=== PATIENT | female | born 1950 | race African-American/Black ===

== ENCOUNTER → 2017-08-11 | Outpatient (CLI) | payer OTHER ==
[2016-05-05 12:00] VITALS: BP 178/87
--- NOTE | 2017-08-11 09:04 | RAD ---
DATE: 08/11/2017 EXAM: DIGITAL SCREEN BILAT W/CAD HISTORY: Routine screening COMPARISON: 09/03/2014 This study was interpreted with the benefit of Computerized Aided Detection (CAD). The breast parenchyma shows scattered fibroglandular densities. Breast parenchyma level B. FINDINGS: No new or enlarging breast densities are seen. No suspicious microcalcifications are evident. IMPRESSION: Stable mammograms without evidence of malignancy. BI-RADS CATEGORY: 1 NEGATIVE RECOMMENDED FOLLOW-UP: 12M 12 MONTH FOLLOW-UP PQRS compliance statement: Patient information was entered into a reminder system with a target due date for the next mammogram. Mammography is a sensitive method for finding small breast cancers, but it does not detect them all and is not a substitute for careful clinical examination. A negative mammogram does not negate a clinically suspicious finding and should not result in delay in biopsying a clinically suspicious abnormality. "Our facility is accredited by the [employer] Mammography Program."
== END | disposition home or self-care (01) ==
LOC: MAMMO 07:32
PROVIDERS: ATTEND Family Medicine
DX: Z12.31 Encounter for screening mammogram for malignant neoplasm of breast (principal)
CPT/HCPCS: G0202; 77067

== ENCOUNTER 2017-09-15 17:56 | Emergency (ER) | payer OTHER ==
[~2017-09-15] VITALS: Ht 157.5 cm; Wt 74.8 kg
--- NOTE | 2017-09-15 18:22 | EKG ---
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
[2017-09-15 18:29] LABS: BASO % 1 % (0-3); EOS % 2 % (0-3); HEMATOCRIT 40.7 % (36.0-47.0); HEMOGLOBIN 13.8 g/dL (12.0-15.5); LYMPH # 3.7 x10^3/uL (1.0-4.8); LYMPH % 49 % (24-48); MEAN CORPUSCULAR HEMOGLOBIN 32 pg (25-35); MEAN CORPUSCULAR HGB CONC 34 g/dL (31-37); MEAN CORPUSCULAR VOLUME 94 fL (79-100); MONO % 7 % (0-9); NEUT % 41 % (31-73); PLATELET COUNT 296 x10^3/uL (140-400); RED BLOOD COUNT 4.32 x10^6/uL (3.50-5.40); WHITE BLOOD COUNT 7.6 x10^3/uL (4.0-11.0)
--- NOTE | 2017-09-15 18:34 | PHYS DOC ---
Past Medical History Past Medical History: Pneumonia, Other Additional Past Medical Histor: "irregular heart beat" Past Surgical History: Cholecystectomy, Colectomy, Hysterectomy, Tubal ligation Additional Past Surgical Histo: fatty tumor removed Alcohol Use: Rarely Drug Use: None Adult General Chief Complaint Chief Complaint: CHEST PAIN HPI HPI Patient is a 67 year old female who presents with in mild substernal chest pain tightness through to her back for approximately 10 hours; denies shortness of breath cough or fever. Prior stress test 2 years ago was normal no history of heart catheter. Denies history of hypertension but appears to have a fairly elevated blood pressure. Denies leg edema or leg pain. Review of Systems Review of Systems Constitutional: Denies fever or chills [] Eyes: Denies change in visual acuity, redness, or eye pain [] HENT: Denies nasal congestion or sore throat [] Respiratory: Denies cough or shortness of breath [] Cardiovascular: No additional information not addressed in HPI [] GI: Denies abdominal pain, nausea, vomiting, bloody stools or diarrhea [] : Denies dysuria or hematuria [] Musculoskeletal: Denies back pain or joint pain [] Integument: Denies rash or skin lesions [] Neurologic: Denies headache, focal weakness or sensory changes [] Endocrine: Denies polyuria or polydipsia [] Current Medications Current Medications Current Medications Medications (Trade) Dose Ordered Sig/Marnie Start Time Stop Time Status Last Admin Dose Admin Aspirin (Children'S Aspirin) 324 mg 1X ONCE 09/15/17 18:45 09/15/17 18:49 DC 09/15/17 18:59 324 MG Labetalol HCl (Normodyne) 10 mg 1X ONCE 09/15/17 18:45 09/15/17 18:49 DC Nitroglycerin (Nitrostat) 0.4 mg PRN Q5MIN PRN 09/15/17 18:45 09/15/17 20:50 DC 09/15/17 19:00 0.4 MG Allergies Allergies Allergies Coded Allergies Type Severity Reaction Last Updated Verified No Known Drug Allergies 05/05/16 No Physical Exam Physical Exam Constitutional: Well developed, well nourished, no acute distress, non-toxic appearance. [] HENT: Normocephalic, atraumatic, bilateral external ears normal, oropharynx moist, no oral exudates, nose normal. [] Eyes: PERRLA, EOMI, conjunctiva normal, no discharge. [] Neck: Normal range of motion, no tenderness, supple, no stridor. [] Cardiovascular:Heart rate regular rhythm, no murmur [] Lungs & Thorax: Bilateral breath sounds clear to auscultation [] Abdomen: Bowel sounds normal, soft, no tenderness, no masses, no pulsatile masses. [] Skin: Warm, dry, no erythema, no rash. [] Back: No tenderness, no CVA tenderness. [] Extremities: No tenderness, no cyanosis, no clubbing, ROM intact, no edema. [] Neurologic: Alert and oriented X 3, normal motor function, normal sensory function, no focal deficits noted. [] Psychologic: Affect normal, judgement normal, mood normal. [] Current Patient Data Vital Signs Vital Signs Date Time Temp Pulse Resp B/P (MAP) Pulse Ox O2 Delivery O2 Flow Rate FiO2 09/15/17 20:25 59 158/74 (102) 99 Room Air 09/15/17 19:09 18 09/15/17 18:00 98.2 98.2 Lab Values Laboratory Tests Test 09/15/17 18:15 White Blood Count 7.6 x10^3/uL (4.0-11.0) Red Blood Count 4.32 x10^6/uL (3.50-5.40) Hemoglobin 13.8 g/dL (12.0-15.5) Hematocrit 40.7 % (36.0-47.0) Mean Corpuscular Volume 94 fL (79-100) Mean Corpuscular Hemoglobin 32 pg (25-35) Mean Corpuscular Hemoglobin Concent 34 g/dL (31-37) Red Cell Distribution Width 13.0 % (11.5-14.5) Platelet Count 296 x10^3/uL (140-400) Neutrophils (%) (Auto) 41 % (31-73) Lymphocytes (%) (Auto) 49 % (24-48) H Monocytes (%) (Auto) 7 % (0-9) Eosinophils (%) (Auto) 2 % (0-3) Basophils (%) (Auto) 1 % (0-3) Neutrophils # (Auto) 3.1 x10^3uL (1.8-7.7) Lymphocytes # (Auto) 3.7 x10^3/uL (1.0-4.8) Monocytes # (Auto) 0.5 x10^3/uL (0.0-1.1) Eosinophils # (Auto) 0.1 x10^3/uL (0.0-0.7) Basophils # (Auto) 0.0 x10^3/uL (0.0-0.2) Sodium Level 139 mmol/L (136-145) Potassium Level 4.0 mmol/L (3.5-5.1) Chloride Level 102 mmol/L (98-107) Carbon Dioxide Level 29 mmol/L (21-32) Anion Gap 8 (6-14) Blood Urea Nitrogen 19 mg/dL (7-20) Creatinine 0.9 mg/dL (0.6-1.0) Estimated GFR (Cockcroft-Gault) 76.0 BUN/Creatinine Ratio 21 (6-20) H Glucose Level 92 mg/dL (70-99) Calcium Level 9.2 mg/dL (8.5-10.1) Total Bilirubin 0.3 mg/dL (0.2-1.0) Aspartate Amino Transferase (AST) 30 U/L (15-37) Alanine Aminotransferase (ALT) 35 U/L (14-59) Alkaline Phosphatase 95 U/L (46-116) Troponin I Quantitative < 0.017 ng/mL (0.000-0.055) Total Protein 7.7 g/dL (6.4-8.2) Albumin 3.8 g/dL (3.4-5.0) Albumin/Globulin Ratio 1.0 (1.0-1.7) Laboratory Tests 09/15/17 18:15 Laboratory Tests 09/15/17 18:15 EKG EKG EKG normal sinus rhythm rate of 63 no STEMI QTC normal my interpretation[] Radiology/Procedures Radiology/Procedures Chest x-ray[ negative per my interpretation mediastinum was not widened] Course & Med Decision Making Course & Med Decision Making Pertinent Labs and Imaging studies reviewed. (See chart for details) [Patient is blood sugar responded favorably to some sublingual nitroglycerin she was given an aspirin. Labs EKG chest x-ray were unremarkable. Time 8:14 PM reexamination: Patient resting comfortably with a blood pressure of 140-160 systolic she is pain-free. She reports that the pain she was having in her chest is primarily just with movement it is not pleuritic. I've advised her this point we should probably get a CAT scan of her chest and admit her for chest pain rule out and further evaluation such as serial enzymes and EKGs and a stress test or heart catheter if indicated and she is declining this at this time. She understands the risks benefits alternatives including and disability. We will recommend that she take a baby aspirin a day and I will prescribe her some blood pressure medications and have asked her to follow up with her primary care physician tomorrow..] Dragon Disclaimer Dragon Disclaimer This electronic medical record was generated, in whole or in part, using a voice recognition dictation system. Departure Departure Impression: Primary Impression: Chest pain Additional Impression: Hypertensive urgency Disposition: ADMITTED INPATIENT Condition: IMPROVED Referrals: RUSTAM BECKER MD (PCP) Patient Instructions: Chest Pain (Nonspecific), [id number], Hypertension, [id number] Scripts Lisinopril/Hydrochlorothiazide (LISINOPRIL-HCTZ 10-12.5 MG TAB) 1 Each Tablet 1 TAB PO DAILY, #14 TAB 0 Refills Prov: ROCHELLE PINA MD 09/15/17 Problem Qualifiers ROCHELLE PINA MD Sep 15, 2017 18:34
[2017-09-15 18:36] LABS: CALCIUM 9.2 mg/dL (8.5-10.1); CREATININE 0.9 mg/dL (0.6-1.0)
[2017-09-15 18:41] LABS: ALBUMIN 3.8 g/dL (3.4-5.0); TOTAL BILIRUBIN 0.3 mg/dL (0.2-1.0); TOTAL PROTEIN 7.7 g/dL (6.4-8.2)
[2017-09-15] MEDS ORDERED: ASPIRIN CHEWABLE 81 MG TABLET. PO ONE (18:45)
[2017-09-15] MEDS ORDERED: LABETALOL 20 MG/4 ML DISP.SYRIN. IVP ONE (18:45)
[2017-09-15] MEDS ORDERED: NITROGLYCERIN SUBLINGUAL 0.4 MG BOTTLE OF 25. SL PRN (18:45)
[2017-09-15] MEDS ORDERED: LISI1TAB3 PO (20:18)
[2017-09-15 20:25] VITALS: BP 158/74
--- NOTE | 2017-09-16 08:34 | RAD ---
Portable chest, 09/15/2017: History: Chest pain Comparison is made to a study from 05/05/2016. The heart size and pulmonary vascularity are normal. There is a calcified granuloma in the right parahilar region. No pulmonary infiltrates are seen. There is no evidence of pleural fluid. IMPRESSION: No acute cardiopulmonary abnormality is detected.
== END 2017-09-15 20:40 | disposition home or self-care (01) ==
LOC: ER 17:56
DX: R07.2 Precordial pain (principal); I16.0 Hypertensive urgency; Z87.01 Personal history of pneumonia (recurrent); Z90.49 Acquired absence of other specified parts of digestive tract; Z90.710 Acquired absence of both cervix and uterus
CPT/HCPCS: 36415; 71010; 80053; 84484; 85025; 93005; 99285-25

== ENCOUNTER 2017-10-24 18:08 | Emergency (ER) | payer OTHER ==
[~2017-10-24] VITALS: Ht 157.5 cm; Wt 74.8 kg
[~2017-10-24 18:08] MED LIST: LISI1TAB3 PO
[2017-10-24 18:25] VITALS: BP 184/57
--- NOTE | 2017-10-24 18:45 | PHYS DOC ---
Past Medical History Past Medical History: Hypertension, Pneumonia, Other Additional Past Medical Histor: "irregular heart beat" Past Surgical History: Cholecystectomy, Colectomy, Hysterectomy, Tubal ligation , Other Additional Past Surgical Histo: fatty tumor removed Alcohol Use: Occasionally Drug Use: None Adult General Chief Complaint Chief Complaint: COUGH HPI HPI Patient is a 67 year old female with history of hypertension who presents with a productive cough and nasal congestion for 5 days. Patient denies any fever. Review of Systems Review of Systems Constitutional: Denies fever or chills [] Eyes: Denies change in visual acuity, redness, or eye pain [] HENT:Reports nasal congestion denies sore throat [] Respiratory: Reports cough denies shortness of breath [] Cardiovascular: No additional information not addressed in HPI [] GI: Denies abdominal pain, nausea, vomiting, bloody stools or diarrhea [] : Denies dysuria or hematuria [] Musculoskeletal: Denies back pain or joint pain [] Integument: Denies rash or skin lesions [] Neurologic: Denies headache, focal weakness or sensory changes [] All other systems were reviewed and found to be within normal limits, except as documented in this note. Allergies Allergies Allergies Coded Allergies Type Severity Reaction Last Updated Verified No Known Drug Allergies 05/05/16 No Physical Exam Physical Exam Constitutional: Well developed, well nourished, no acute distress, non-toxic appearance. [] HENT: Normocephalic, atraumatic, bilateral external ears normal, oropharynx moist, no oral exudates, patient sounds congested nasally. Eyes: PERRLA, EOMI, conjunctiva normal, no discharge. [] Neck: Normal range of motion, no tenderness, supple, no stridor. [] Cardiovascular:Heart rate regular rhythm, no murmur [] Lungs & Thorax: Bilateral breath sounds clear to auscultation [] Abdomen: Bowel sounds normal, soft, no tenderness, no masses, no pulsatile masses. [] Skin: Warm, dry, no erythema, no rash. [] Back: No tenderness, no CVA tenderness. [] Extremities: No tenderness, no cyanosis, no clubbing, ROM intact, no edema. [] Neurologic: Alert and oriented X 3, normal motor function, normal sensory function, no focal deficits noted. [] Psychologic: Affect normal, judgement normal, mood normal. [] Current Patient Data Vital Signs Vital Signs Date Time Temp Pulse Resp B/P (MAP) Pulse Ox O2 Delivery O2 Flow Rate FiO2 10/24/17 18:25 98.2 70 18 100 Room Air 98.2 EKG EKG [] Radiology/Procedures Radiology/Procedures [] Course & Med Decision Making Course & Med Decision Making Pertinent Labs and Imaging studies reviewed. (See chart for details) Patient is in the ED with symptoms consistent of bronchitis as well as an upper respiratory infection. Will be discharged with azithromycin, albuterol inhaler, penicillin for 5 days and cough medicine. Follow-up with PCP in the next 2-7 days. Provided return precautions and discharged in stable condition. Blood pressure was 184/57, patient states she has not taken her lisinopril today. Instructed her to make sure she takes her blood pressure medicine before bed and follow-up with her PCP. Dragon Disclaimer Dragon Disclaimer This electronic medical record was generated, in whole or in part, using a voice recognition dictation system. Departure Departure Impression: Primary Impression: Acute bronchitis Additional Impressions: Upper respiratory infection Hypertension Disposition: 01 HOME, SELF-CARE Condition: STABLE Referrals: RUSTAM BECKER MD (PCP) followup with your doctor in 2-7 days Patient Instructions: Acute Bronchitis, Hypertension, Upper Respiratory Infection, Adult, [id number] Additional Instructions: You were seen for acute bronchitis with an upper respiratory infection. Take the prescribed medicines as ordered. Ensure you take your blood pressure medicines as prescribed. Follow-up with your doctor in the next 2-7 days. Come back to the ED if symptoms worsen. Scripts Promethazine Hcl/Codeine (PROMETHAZINE-CODEINE SYRUP) 118 Ml Syrup 5 ML PO Q4-6HRS, #60 ML Prov: RAYMOND LOERA APRN 10/24/17 Azithromycin (ZITHROMAX) 250 Mg Tablet 1 PKG PO UD, #1 PKG Prov: RAYMOND LOERA APRN 10/24/17 Prednisone (PREDNISONE) 50 Mg Tablet 1 TAB PO DAILY, #5 TAB Prov: RAYMOND LOERA APRN 10/24/17 Albuterol Sulfate (VENTOLIN HFA INHALER) 18 Gm Hfa.aer.ad 2 PUFF INH Q4HRS for FOR ASTHMA, #1 INHALER 0 Refills Prov: RAYMOND LOERA APRN 10/24/17 Problem Qualifiers Primary Impression: Acute bronchitis Bronchitis organism: unspecified organism Qualified Codes: J20.9 - Acute bronchitis, unspecified Additional Impressions: Upper respiratory infection URI type: unspecified URI Qualified Codes: J06.9 - Acute upper respiratory infection, unspecified Hypertension Hypertension type: unspecified Qualified Codes: I10 - Essential (primary) hypertension RAYMOND LOERA APRN Oct 24, 2017 18:45
[2017-10-24] MEDS ORDERED: PROM118S2 PO (18:49)
[2017-10-24] MEDS ORDERED: AZIT250T PO (18:49)
[2017-10-24] MEDS ORDERED: VENTOLIN HFA18 GM INH (18:49)
[2017-10-24] MEDS ORDERED: PRED50TA PO (18:49)
== END 2017-10-24 19:12 | disposition home or self-care (01) ==
LOC: ER 18:08
DX: J06.9 Acute upper respiratory infection, unspecified (principal); J20.9 Acute bronchitis, unspecified; I10 Essential (primary) hypertension
CPT/HCPCS: 99283

== ENCOUNTER 2017-10-31 17:23 | Inpatient (IN) | payer OTHER ==
[~2017-10-31] VITALS: Ht 157.5 cm; Wt 71.7 kg
[~2017-10-31 17:23] MED LIST changes: +AZIT250T PO; +PRED50TA PO; +PROM118S2 PO; +VENTOLIN HFA18 GM INH
[2017-10-31 18:50] LABS: BASO # 0.1 x10^3/uL (0.0-0.2); BASO % 1 % (0-3); EOS % 2 % (0-3); HEMATOCRIT 41.6 % (36.0-47.0); LYMPH % 43 % (24-48); MEAN CORPUSCULAR HEMOGLOBIN 32 pg (25-35); MEAN CORPUSCULAR HGB CONC 34 g/dL (31-37); MEAN CORPUSCULAR VOLUME 95 fL (79-100); MONO % 6 % (0-9); NEUT % 48 % (31-73); PLATELET COUNT 332 x10^3/uL (140-400); RED BLOOD COUNT 4.38 x10^6/uL (3.50-5.40); RED CELL DISTRIBUTION WIDTH 13.3 % (11.5-14.5); WHITE BLOOD COUNT 9.2 x10^3/uL (4.0-11.0)
[2017-10-31 19:22] LABS: CREATININE 0.9 mg/dL (0.6-1.0); POTASSIUM 3.5 mmol/L (3.5-5.1)
[2017-10-31 19:30] LABS: ALBUMIN 3.5 g/dL (3.4-5.0); ALBUMIN/GLOBULIN RATIO 1.1 (1.0-1.7); TOTAL BILIRUBIN 0.2 mg/dL (0.2-1.0); TOTAL PROTEIN 6.7 g/dL (6.4-8.2)
[2017-10-31] MEDS ORDERED: IOHEXOL 300 MG/ML 100ML VIAL. IV ONE (20:30)
[2017-10-31] MEDS ORDERED: CONTRAST GIVEN MC PRN (20:30)
--- NOTE | 2017-10-31 21:18 | RAD ---
CTA Chest with contrast: Clinical History: chest pain, shortness of breath
Omni 300 75ml, no priors Shortness of breath. Axial helical images of the chest were obtained after the administration of 75 cc of IV Omni 300 and timed appropriately for a pulmonary arterial study. Conventional axial reconstruction was performed in addition to coronal, sagittal and bilateral oblique MIP (maximum intensity projection). This study was ordered to detect possible pulmonary embolism. There are no filling defects to suggest pulmonary embolism. The lungs and pleural margins are clear. There is no mediastinal or hilar lymphadenopathy. The thoracic aorta appears normal. Impression: 1. No evidence of pulmonary embolism. 2. No significant findings. PQRS Compliance Statement: One or more of the following individualized dose reduction techniques were utilized for this examination: 1. Automated exposure control 2. Adjustment of the mA and/or kV according to patient size 3. Use of iterative reconstruction technique Electronically signed by: Henry Griffith III, MD (10/31/2017 9:16 PM) [facility]
[2017-10-31] MEDS ORDERED: fentaNYL PF VIAL 100 MCG/2 ML VIAL IV PRN (22:00)
[2017-10-31] MEDS ORDERED: NITROGLYCERIN SUBLINGUAL 0.4 MG BOTTLE OF 25. SL PRN ×2 (22:00→22:45)
[2017-10-31] MEDS ORDERED: ACETAMINOPHEN 500 MG TABLET PO ONE (22:30)
[2017-10-31] MEDS ORDERED: ASPIRIN 325 MG TABLET PO ONE (22:30)
[2017-10-31] MEDS ORDERED: ONDANSETRON PF 4 MG/2 ML VIAL. IV PRN (22:45)
[2017-10-31] MEDS ORDERED: ACETAMINOPHEN 325 MG TABLET. PO PRN (22:45)
[2017-10-31] MEDS ORDERED: MORPHINE SULFATE 4 MG/ML DISP.SYRIN. IV PRN (22:45)
[2017-10-31 23:28] VITALS: BP 182/76
[2017-11-01] MEDS ORDERED: PNEUMOCOCCAL VAX SCREEN BY RX. MC ONE (00:30)
--- NOTE | 2017-11-01 00:45 | ED.ADGEN ---
Past Medical History Past Medical History: Hypertension, Pneumonia, Other Additional Past Medical Histor: "irregular heart beat" Past Surgical History: Cholecystectomy, Colectomy, Hysterectomy, Tubal ligation , Other Additional Past Surgical Histo: fatty tumor removed Alcohol Use: Occasionally Drug Use: None Adult General Chief Complaint Chief Complaint: CHEST PAIN HPI HPI Patient is a 67 year old [woman, history of hypertension, "irregular heartbeat ", who presents to the emergency department with a complaint of intermittent chest pain over the past week or so. Patient states she was seen in the ED last week, at that time she was evaluated and told that she might have a viral infection. She states that she was instructed to follow-up with her primary care provider, presents today because she is having worsening and recurrent anterior chest pain and heaviness, associated with mild shortness of breath. States that the pain does come and go, sometimes is worse with deep inspiration. Denies similar symptoms previously. Denies any near-syncope or syncopal events, any vertigo, any focal weakness, numbness or tingling, states that she will occasionally have a nonproductive cough, she states states she has some nasal congestion, no sore throat, no swelling extremities, rashes, recent travel or surgery. She states that she has not previously had a DVT or PE , but her sister did have a PE, with unclear inciting etiology several years ago. She states that she has been Compliant with all medications, states he did take Abigail-Hagaman cold and flu at home without improvement of symptoms. Denies any abdominal pain, any diarrhea, any nausea, any weakness numbness or tingling. States her last cardiac evaluation was approximately [address] Samuel of cardiology. Review of Systems Review of Systems Constitutional: Denies fever or chills. [] Eyes: Denies change in visual acuity. [] HENT: Denies nasal congestion or sore throat. [] Respiratory: Denies cough or shortness of breath. [] Cardiovascular: Anterior left sided chest pain, which does radiate to the back at times, with shortness of breath. GI: Denies abdominal pain, nausea, vomiting, bloody stools or diarrhea. [] : Denies dysuria. [] Musculoskeletal: Denies back pain or joint pain. [] Integument: Denies rash. [] Neurologic: Denies headache, focal weakness or sensory changes. [] Endocrine: Denies polyuria or polydipsia. [] Lymphatic: Denies swollen glands. [] Psychiatric: Denies depression or anxiety. [] Current Medications Current Medications Current Medications Medications (Trade) Dose Ordered Sig/Marnie Start Time Stop Time Status Last Admin Dose Admin Info (Do NOT chart on this entry -- for MONITORING) 1 each PRN DAILY PRN 10/31/17 20:30 11/02/17 20:29 Iohexol (Omnipaque 300 Mg/ml) 75 ml 1X ONCE 10/31/17 20:30 10/31/17 20:31 DC 10/31/17 20:26 75 ML Allergies Allergies Allergies Coded Allergies Type Severity Reaction Last Updated Verified No Known Drug Allergies 05/05/16 No Physical Exam Physical Exam Constitutional: Well developed, well nourished, no acute distress, non-toxic appearance. [] HENT: Normocephalic, atraumatic, bilateral external ears normal, oropharynx moist, no oral exudates, nose normal. [] Eyes: PERRLA, EOMI, conjunctiva normal, no discharge. [] Neck: Normal range of motion, no tenderness, supple, no stridor. [] Cardiovascular:Heart rate regular rhythm, no murmur [] Lungs & Thorax: Bilateral breath sounds clear to auscultation [] Abdomen: Bowel sounds normal, soft, no tenderness, no masses, no pulsatile masses. [] Skin: Warm, dry, no erythema, no rash. [] Back: No tenderness, no CVA tenderness. [] Extremities: No tenderness, no cyanosis, no clubbing, ROM intact, no edema. [] Neurologic: Alert and oriented X 3, normal motor function, normal sensory function, no focal deficits noted. [] Psychologic: Affect normal, judgement normal, mood normal. [] Current Patient Data Vital Signs Vital Signs Date Time Temp Pulse Resp B/P (MAP) Pulse Ox O2 Delivery O2 Flow Rate FiO2 10/31/17 21:20 55 155/66 (95) 100 10/31/17 20:00 Room Air 10/31/17 18:30 16 10/31/17 17:35 97.8 97.8 Lab Values Laboratory Tests Test 10/31/17 17:40 10/31/17 19:05 White Blood Count 9.2 x10^3/uL (4.0-11.0) Red Blood Count 4.38 x10^6/uL (3.50-5.40) Hemoglobin 14.0 g/dL (12.0-15.5) Hematocrit 41.6 % (36.0-47.0) Mean Corpuscular Volume 95 fL (79-100) Mean Corpuscular Hemoglobin 32 pg (25-35) Mean Corpuscular Hemoglobin Concent 34 g/dL (31-37) Red Cell Distribution Width 13.3 % (11.5-14.5) Platelet Count 332 x10^3/uL (140-400) Neutrophils (%) (Auto) 48 % (31-73) Lymphocytes (%) (Auto) 43 % (24-48) Monocytes (%) (Auto) 6 % (0-9) Eosinophils (%) (Auto) 2 % (0-3) Basophils (%) (Auto) 1 % (0-3) Neutrophils # (Auto) 4.4 x10^3uL (1.8-7.7) Lymphocytes # (Auto) 4.0 x10^3/uL (1.0-4.8) Monocytes # (Auto) 0.6 x10^3/uL (0.0-1.1) Eosinophils # (Auto) 0.1 x10^3/uL (0.0-0.7) Basophils # (Auto) 0.1 x10^3/uL (0.0-0.2) D-Dimer (Vicky) < 0.27 ug/mlFEU Sodium Level 141 mmol/L (136-145) Potassium Level 3.5 mmol/L (3.5-5.1) Chloride Level 105 mmol/L (98-107) Carbon Dioxide Level 29 mmol/L (21-32) Anion Gap 7 (6-14) Blood Urea Nitrogen 14 mg/dL (7-20) Creatinine 0.9 mg/dL (0.6-1.0) Estimated GFR (Cockcroft-Gault) 76.0 BUN/Creatinine Ratio 16 (6-20) Glucose Level 131 mg/dL (70-99) H Calcium Level 9.0 mg/dL (8.5-10.1) Total Bilirubin 0.2 mg/dL (0.2-1.0) Aspartate Amino Transferase (AST) 22 U/L (15-37) Alanine Aminotransferase (ALT) 42 U/L (14-59) Alkaline Phosphatase 101 U/L (46-116) Troponin I Quantitative < 0.017 ng/mL (0.000-0.055) BT-Trs-D-Type Natriuretic Peptide 14 pg/mL (0-124) Total Protein 6.7 g/dL (6.4-8.2) Albumin 3.5 g/dL (3.4-5.0) Albumin/Globulin Ratio 1.1 (1.0-1.7) Laboratory Tests 10/31/17 17:40 Laboratory Tests 10/31/17 19:05 EKG EKG EC: Sinus rhythm, heart rate 79 beats/minute, left axis deviation, QTC of 418, ND 166, QR 74, mild baseline artifact noted. Abnormal ECG, does not meet STEMI criteria. As interpreted by me. Radiology/Procedures Radiology/Procedures Chest x-ray: One view: Normal cardiopulmonary silhouette, no infiltrates, no effusions, no pneumothorax, no soft tissue or bony abnormalities identified. As interpreted by me. [facility] [address] [place] [address] IMAGING REPORT Signed PATIENT: NASIR MERCADO ACCOUNT: [id number] : 1950 LOCATION: ER AGE: 67 SEX: F EXAM STATUS: REG ER ORD. PHYSICIAN: MADALYN ROJAS DO REASON: CP/SOB PROCEDURE: CT ANGIOGRAPHY CHEST CTA Chest with contrast: Clinical History: chest pain, shortness of breath
Omni 300 75ml, no priors Shortness of breath. Axial helical images of the chest were obtained after the administration of 75 cc of IV Omni 300 and timed appropriately for a pulmonary arterial study. Conventional axial reconstruction was performed in addition to coronal, sagittal and bilateral oblique MIP (maximum intensity projection). This study was ordered to detect possible pulmonary embolism. There are no filling defects to suggest pulmonary embolism. The lungs and pleural margins are clear. There is no mediastinal or hilar lymphadenopathy. The thoracic aorta appears normal. Impression: 1. No evidence of pulmonary embolism. 2. No significant findings. PQRS Compliance Statement: One or more of the following individualized dose reduction techniques were utilized for this examination: 1. Automated exposure control 2. Adjustment of the mA and/or kV according to patient size 3. Use of iterative reconstruction technique Electronically signed by: Tarsha Mcbride III, MD (10/31/2017 9:16 PM) [facility] DICTATED and SIGNED BY: TARSHA MCBRIDE III, MD DATE: 10/31/172111 CC: RUSTAM BECKER MD; MADALYN ROJAS DO ~ Course & Med Decision Making Course & Med Decision Making Pertinent Labs and Imaging studies reviewed. (See chart for details) Patient complaining of intermittent chest pain with shortness of breath, which does radiate to the back, was worse with deep inspiration at times, unable to reproduce with palpation in the ED. Patient does have a family history of what appears to be an unprovoked PE, no fever or viral type symptoms for her report. Chest x-ray obtained along laboratory studies, I did discuss this with patient, his continued out of pain, after discussion at bedside, we did opt to proceed with a CT of the chest to rule out any occult normalities. This was negative for PE, patient's d-dimer was also negative. I did readdress this with patient, she is continued to have some discomfort, has received aspirin and nitroglycerin , and is resting more comfortably at this time. Due to patient's history of hypertension, age, and lack of recent cardiac evaluation, will admit to the hospital for evaluation with Dr. Samuel of cardiology was using previously, with serial troponins for a rule out. I did discuss findings as above with Dr. Frederick of internal medicine, patient was accepted to her service as a full admission to the medical telemetry floor, with bridge orders entered per discussion, and cardiology consultation. Patient remained stable and comfortable in the emergency department, transferred to the floor without issue. Dragon Disclaimer Dragon Disclaimer This electronic medical record was generated, in whole or in part, using a voice recognition dictation system. Departure Impression: Primary Impression: Chest pain Disposition: ADMITTED INPATIENT Admitting Physician: Other Condition: IMPROVED MADALYN ROJAS DO Nov 01, 2017 00:45
[2017-11-01 03:00] VITALS: BP 144/62
[2017-11-01 05:36] LABS: BASO # 0.1 x10^3/uL (0.0-0.2); BASO % 1 % (0-3); EOS % 2 % (0-3); HEMATOCRIT 41.8 % (36.0-47.0); HEMOGLOBIN 13.8 g/dL (12.0-15.5); LYMPH # 4.1 x10^3/uL (1.0-4.8); LYMPH % 52 % (24-48); MEAN CORPUSCULAR HEMOGLOBIN 32 pg (25-35); MEAN CORPUSCULAR HGB CONC 33 g/dL (31-37); MEAN CORPUSCULAR VOLUME 96 fL (79-100); MONO % 7 % (0-9); NEUT % 37 % (31-73); PLATELET COUNT 301 x10^3/uL (140-400); RED BLOOD COUNT 4.37 x10^6/uL (3.50-5.40); RED CELL DISTRIBUTION WIDTH 12.9 % (11.5-14.5); WHITE BLOOD COUNT 7.8 x10^3/uL (4.0-11.0)
[2017-11-01 05:57] LABS: CALCIUM 8.9 mg/dL (8.5-10.1); CREATININE 0.8 mg/dL (0.6-1.0); GFR 87.1; POTASSIUM 3.8 mmol/L (3.5-5.1)
--- NOTE | 2017-11-01 06:48 | EKG ---
[facility] [address] [place] [address] Test Date: 2017-10-31 Test Time: 17:32:14 Pat Name: NASIR MERCADO Department: Room: Gender: F Industrial Electrical Engineer: : 1950 Requested By: MADALYN ROJAS Order Number: [id number] Reading MD: Measurements Intervals [place] Rate: 61 P: 67 [place]: 162 QRS: -22 QRSD: 74 T: 16 QT: 370 QTc: 374 Interpretive Statements SINUS RHYTHM LEFTWARD AXIS OTHERWISE NORMAL ECG RI6.01 No previous ECG available for comparison
[2017-11-01 07:00] VITALS: BP 154/55
--- NOTE | 2017-11-01 08:10 | RAD ---
2 views of the Chest 10/31/2017 8:38 PM Indication: SOB Comparison: Chest radiograph September 15, 2017 Findings: There is no focal consolidation or infiltrate identified. There is no effusion or pneumothorax. The cardiomediastinal silhouette and pulmonary vasculature are within normal limits. No osseous abnormality is identified. Calcified granuloma in the right midlung is stable. Impression: No evidence of acute cardiopulmonary process.
[2017-11-01] MEDS ORDERED: PNEUMOC CONJ VACC 23-VALENT 0.5 ML VIAL. VAX IM ONE (09:00)
--- NOTE | 2017-11-01 10:44 | PDOC1 ---
History and Physical Date of Admission Date of Admission DATE: 11/01/17 TIME: 10:43 Identification/Chief Complaint Chief Complaint CC Chest pressure States that the pain does come and go, sometimes is worse with deep inspiration. Denies similar symptoms previously. Denies any near- syncope or syncopal events, any vertigo, any focal weakness, numbness or tingling, states that she will occasionally have a nonproductive cough, she states states she has some nasal congestion, no sore throat, no swelling extremities, rashes, recent travel or surgery. She states that she has not previously had a DVT or PE, but her sister did have a PE, with unclear inciting etiology several years ago. She states that she has been Compliant with all medications, states he did take Abigail-Mon[place] cold and flu at home without improvement of symptoms. Denies any abdominal pain, any diarrhea, any nausea, any weakness numbness or tingling. States her last cardiac evaluation was approximately [address] Samuel of cardiology.She notes she is under emotional stress due to son's illness She works here as a nurses aid Problems: History of Present Illness History of Present Illness as above, seen in ER with chest pressure, sometimes worse with activity Past Medical History Cardiovascular: No pertinent hx Pulmonary: No pertinent hx GI: No pertinent hx Heme/Onc: No pertinent hx Psych: Anxiety Musculoskeletal: Osteoarthritis Family History Family History BROTHER AND FATHER HAD chf Social History Smoke: No ALCOHOL: none Drugs: None Current Problem List Problem List Problems Medical Problems: (1) Chest pain Status: Acute 2 stress Problems: Current Medications Current Medications Current Medications Iohexol (Omnipaque 300 Mg/ml) 75 ml 1X ONCE IV Last administered on 20:26; Start 10/31/17 at 20:30; Stop 10/31/17 at 20:31; Status DC Info (Do NOT chart on this entry -- for MONITORING) 1 each PRN DAILY PRN MC SEE COMMENTS; Start 10/31/17 at 20:30; Stop 11/02/17 at 20:29 Nitroglycerin (Nitrostat) 0.4 mg PRN Q5MIN PRN SL CHEST PAIN; Start 10/31/17 at 22:00; Stop 10/31/17 at 22:35; Status DC Acetaminophen (Tylenol) 1,000 mg 1X ONCE PO Last administered on 12/11/17at 22 :19; Start 10/31/17 at 22:30; Stop 10/31/17 at 22:31; Status DC Aspirin (Angel Aspirin) 325 mg 1X ONCE PO Last administered on 10/31/17 22: 19; Start 10/31/17 at 22:30; Stop 10/31/17 at 22:31; Status DC Fentanyl Citrate (Fentanyl 2ml Vial) 25 mcg PRN Q15MIN PRN IV PAIN GREATER THAN 3/10; Start 10/31/17 at 22:00; Stop 11/01/17 at 21:59 Ondansetron HCl (Zofran) 4 mg PRN Q8HRS PRN IV NAUSEA/VOMITING; Start at 22:45; Stop 11/01/17 at 22:44 Morphine Sulfate 4 mg PRN Q2HR PRN IV SEVERE PAIN; Start 10/31/17 at 22:45; Stop 11/01/17 at 22:44 Acetaminophen (Tylenol) 650 mg PRN Q4HRS PRN PO FEVER; Start 10/31/17 at 22:45 ; Stop 11/01/17 at 22:44 Nitroglycerin (Nitrostat) 0.4 mg PRN Q5MIN PRN SL CHEST PAIN; Start 10/31/17 at 22:45; Stop 11/01/17 at 22:44 Pneumococcal Polyvalent Vaccine (Do NOT chart on this placeholder) 1 each 1X ONCE MC ; Start 11/01/17 at 00:30; Stop 11/01/17 at 00:31; Status UNV Pneumococcal Polyvalent Vaccine (Pneumovax 23) 0.5 ml ONCE ONCE VAX IM ; Start 11/01/17 at 09:00; Stop 11/01/17 at 09:01; Status DC Active Scripts Active Ventolin Hfa Inhaler (Albuterol Sulfate) 18 Gm Hfa.aer.ad 2 Puff INH Q4HRS Lisinopril-Hctz 10-12.5 Mg Tab (Lisinopril/Hydrochlorothiazide) 1 Each Tablet 1 Tab PO DAILY Allergies Allergies: Coded Allergies: No Known Drug Allergies (Unverified , 05/05/16) Physical Exam Physical Exam Review of Systems Review of Systems Constitutional: Denies fever or chills. [] Eyes: Denies change in visual acuity. [] HENT: Denies nasal congestion or sore throat. [] Respiratory: Denies cough or shortness of breath. [] Cardiovascular: Anterior left sided chest pain, which does radiate to the back at times, with shortness of breath. GI: Denies abdominal pain, nausea, vomiting, bloody stools or diarrhea. [] : Denies dysuria. [] Musculoskeletal: Denies back pain or joint pain. [] Integument: Denies rash. [] Neurologic: Denies headache, focal weakness or sensory changes. [] Endocrine: Denies polyuria or polydipsia. [] Lymphatic: Denies swollen glands. [] Psychiatric: Denies depression or anxiety. [] 14 pt ros otherwise neg except as in HPI Current Medications Current Medications Current Medications Medications (Trade) Dose Ordered Sig/Marnie Start Time Stop Time Status Last Admin Dose Admin Info (Do NOT chart on this entry -- for MONITORING) 1 each PRN DAILY PRN 10/31/17 20:30 11/02/17 20:29 Iohexol (Omnipaque 300 Mg/ml) 75 ml 1X ONCE 10/31/17 20:30 10/31/17 20:31 DC 10/31/17 20:26 75 ML Allergies Allergies Allergies Coded Allergies Type Severity Reaction Last Updated Verified No Known Drug Allergies 05/05/16 No Physical Exam Physical Exam Constitutional: Well developed, well nourished, no acute distress, non-toxic appearance. [] HENT: Normocephalic, atraumatic, bilateral external ears normal, oropharynx moist, no oral exudates, nose normal. [] Eyes: PERRLA, EOMI, conjunctiva normal, no discharge. [] Neck: Normal range of motion, no tenderness, supple, no stridor. [] Cardiovascular:Heart rate regular rhythm, no murmur [] Lungs & Thorax: Bilateral breath sounds clear to auscultation [] Abdomen: Bowel sounds normal, soft, no tenderness, no masses, no pulsatile masses. [] Skin: Warm, dry, no erythema, no rash. [] Back: No tenderness, no CVA tenderness. [] Extremities: No tenderness, no cyanosis, no clubbing, ROM intact, no edema. [] Neurologic: Alert and oriented X 3, normal motor function, normal sensory function, no focal deficits noted. [] Psychologic: Affect normal, judgement normal, mood normal. [] Current Patient Data Vital Signs Vital Signs Date Time Temp Pulse Resp B/P (MAP) Pulse Ox O2 Delivery O2 Flow Rate FiO2 10/31/17 21:20 55 155/66 (95) 100 10/31/17 20:00 Room Air 10/31/17 18:30 16 10/31/17 17:35 97.8 97.8 Lab Values General: Alert, Oriented X3, Cooperative HEENT: PERRLA Lungs: Clear to auscultation Breasts: Not examined Abdomen: Normal bowel sounds, Soft Neuro: Normal speech, Cranial nerves 3-12 NL Vitals Vitals Vital Signs Date Time Temp Pulse Resp B/P (MAP) Pulse Ox O2 Delivery O2 Flow Rate FiO2 11/01/17 09:55 Room Air 11/01/17 07:00 97.7 58 18 154/55 (88) 99 97.7 Labs Labs CTA Chest with contrast: Clinical History: chest pain, shortness of breath
Omni 300 75ml, no priors Shortness of breath. Axial helical images of the chest were obtained after the administration of 75 cc of IV Omni 300 and timed appropriately for a pulmonary arterial study. Conventional axial reconstruction was performed in addition to coronal, sagittal and bilateral oblique MIP (maximum intensity projection). This study was ordered to detect possible pulmonary embolism. There are no filling defects to suggest pulmonary embolism. The lungs and pleural margins are clear. There is no mediastinal or hilar lymphadenopathy. The thoracic aorta appears normal. Impression: 1. No evidence of pulmonary embolism. 2. No significant findings. PQRS Compliance Statement: One or more of the following individualized dose reduction techniques were utilized for this examination: 1. Automated exposure control 2. Adjustment of the mA and/or kV according to patient size 3. Use of iterative reconstruction technique Electronically signed by: Henry Griffith III, MD (10/31/2017 9:16 PM) [facility] Laboratory Tests Test 10/31/17 17:40 10/31/17 19:05 10/31/17 23:00 11/01/17 05:07 White Blood Count 9.2 x10^3/uL (4.0-11.0) 7.8 x10^3/uL (4.0-11.0) Red Blood Count 4.38 x10^6/uL (3.50-5.40) 4.37 x10^6/uL (3.50-5.40) Hemoglobin 14.0 g/dL (12.0-15.5) 13.8 g/dL (12.0-15.5) Hematocrit 41.6 % (36.0-47.0) 41.8 % (36.0-47.0) Mean Corpuscular Volume 95 fL (79-100) 96 fL (79-100) Mean Corpuscular Hemoglobin 32 pg (25-35) 32 pg (25-35) Mean Corpuscular Hemoglobin Concent 34 g/dL (31-37) 33 g/dL (31-37) Red Cell Distribution Width 13.3 % (11.5-14.5) 12.9 % (11.5-14.5) Platelet Count 332 x10^3/uL (140-400) 301 x10^3/uL (140-400) Neutrophils (%) (Auto) 48 % (31-73) 37 % (31-73) Lymphocytes (%) (Auto) 43 % (24-48) 52 % (24-48) Monocytes (%) (Auto) 6 % (0-9) 7 % (0-9) Eosinophils (%) (Auto) 2 % (0-3) 2 % (0-3) Basophils (%) (Auto) 1 % (0-3) 1 % (0-3) Neutrophils # (Auto) 4.4 x10^3uL (1.8-7.7) 2.9 x10^3uL (1.8-7.7) Lymphocytes # (Auto) 4.0 x10^3/uL (1.0-4.8) 4.1 x10^3/uL (1.0-4.8) Monocytes # (Auto) 0.6 x10^3/uL (0.0-1.1) 0.6 x10^3/uL (0.0-1.1) Eosinophils # (Auto) 0.1 x10^3/uL (0.0-0.7) 0.2 x10^3/uL (0.0-0.7) Basophils # (Auto) 0.1 x10^3/uL (0.0-0.2) 0.1 x10^3/uL (0.0-0.2) D-Dimer (Vicky) < 0.27 ug/mlFEU Sodium Level 141 mmol/L (136-145) 142 mmol/L (136-145) Potassium Level 3.5 mmol/L (3.5-5.1) 3.8 mmol/L (3.5-5.1) Chloride Level 105 mmol/L (98-107) 107 mmol/L (98-107) Carbon Dioxide Level 29 mmol/L (21-32) 25 mmol/L (21-32) Anion Gap 7 (6-14) 10 (6-14) Blood Urea Nitrogen 14 mg/dL (7-20) 11 mg/dL (7-20) Creatinine 0.9 mg/dL (0.6-1.0) 0.8 mg/dL (0.6-1.0) Estimated GFR (Cockcroft-Gault) 76.0 87.1 BUN/Creatinine Ratio 16 (6-20) Glucose Level 131 mg/dL (70-99) 103 mg/dL (70-99) Calcium Level 9.0 mg/dL (8.5-10.1) 8.9 mg/dL (8.5-10.1) Total Bilirubin 0.2 mg/dL (0.2-1.0) Aspartate Amino Transf (AST/SGOT) 22 U/L (15-37) Alanine Aminotransferase (ALT/SGPT) 42 U/L (14-59) Alkaline Phosphatase 101 U/L (46-116) Troponin I Quantitative < 0.017 ng/mL (0.000-0.055) < 0.017 ng/mL (0.000-0.055) < 0.017 ng/mL (0.000-0.055) VI-Nkj-F-Type Natriuretic Peptide 14 pg/mL (0-124) Total Protein 6.7 g/dL (6.4-8.2) Albumin 3.5 g/dL (3.4-5.0) Albumin/Globulin Ratio 1.1 (1.0-1.7) Laboratory Tests Test 10/31/17 17:40 10/31/17 19:05 10/31/17 23:00 11/01/17 05:07 White Blood Count 9.2 x10^3/uL (4.0-11.0) 7.8 x10^3/uL (4.0-11.0) Red Blood Count 4.38 x10^6/uL (3.50-5.40) 4.37 x10^6/uL (3.50-5.40) Hemoglobin 14.0 g/dL (12.0-15.5) 13.8 g/dL (12.0-15.5) Hematocrit 41.6 % (36.0-47.0) 41.8 % (36.0-47.0) Mean Corpuscular Volume 95 fL (79-100) 96 fL (79-100) Mean Corpuscular Hemoglobin 32 pg (25-35) 32 pg (25-35) Mean Corpuscular Hemoglobin Concent 34 g/dL (31-37) 33 g/dL (31-37) Red Cell Distribution Width 13.3 % (11.5-14.5) 12.9 % (11.5-14.5) Platelet Count 332 x10^3/uL (140-400) 301 x10^3/uL (140-400) Neutrophils (%) (Auto) 48 % (31-73) 37 % (31-73) Lymphocytes (%) (Auto) 43 % (24-48) 52 % (24-48) Monocytes (%) (Auto) 6 % (0-9) 7 % (0-9) Eosinophils (%) (Auto) 2 % (0-3) 2 % (0-3) Basophils (%) (Auto) 1 % (0-3) 1 % (0-3) Neutrophils # (Auto) 4.4 x10^3uL (1.8-7.7) 2.9 x10^3uL (1.8-7.7) Lymphocytes # (Auto) 4.0 x10^3/uL (1.0-4.8) 4.1 x10^3/uL (1.0-4.8) Monocytes # (Auto) 0.6 x10^3/uL (0.0-1.1) 0.6 x10^3/uL (0.0-1.1) Eosinophils # (Auto) 0.1 x10^3/uL (0.0-0.7) 0.2 x10^3/uL (0.0-0.7) Basophils # (Auto) 0.1 x10^3/uL (0.0-0.2) 0.1 x10^3/uL (0.0-0.2) D-Dimer (Vicky) < 0.27 ug/mlFEU Sodium Level 141 mmol/L (136-145) 142 mmol/L (136-145) Potassium Level 3.5 mmol/L (3.5-5.1) 3.8 mmol/L (3.5-5.1) Chloride Level 105 mmol/L (98-107) 107 mmol/L (98-107) Carbon Dioxide Level 29 mmol/L (21-32) 25 mmol/L (21-32) Anion Gap 7 (6-14) 10 (6-14) Blood Urea Nitrogen 14 mg/dL (7-20) 11 mg/dL (7-20) Creatinine 0.9 mg/dL (0.6-1.0) 0.8 mg/dL (0.6-1.0) Estimated GFR (Cockcroft-Gault) 76.0 87.1 BUN/Creatinine Ratio 16 (6-20) Glucose Level 131 mg/dL (70-99) 103 mg/dL (70-99) Calcium Level 9.0 mg/dL (8.5-10.1) 8.9 mg/dL (8.5-10.1) Total Bilirubin 0.2 mg/dL (0.2-1.0) Aspartate Amino Transf (AST/SGOT) 22 U/L (15-37) Alanine Aminotransferase (ALT/SGPT) 42 U/L (14-59) Alkaline Phosphatase 101 U/L (46-116) Troponin I Quantitative < 0.017 ng/mL (0.000-0.055) < 0.017 ng/mL (0.000-0.055) < 0.017 ng/mL (0.000-0.055) JL-Pki-E-Type Natriuretic Peptide 14 pg/mL (0-124) Total Protein 6.7 g/dL (6.4-8.2) Albumin 3.5 g/dL (3.4-5.0) Albumin/Globulin Ratio 1.1 (1.0-1.7) VTE Prophylaxis Ordered VTE Prophylaxis Devices: No VTE Pharmacological Prophylaxi: Yes Assessment/Plan Assessment/Plan 1. Chest discomfort, concerning for CAD, given age, postmenopausal state 2. stress and anxiety, situational 3. possible GERD 4. hypertension PLAN 1. Cardiology consult 2. serial troponin i 3. tele monitor ANNE AMIN MD Nov 01, 2017 10:43
[2017-11-01 11:00] VITALS: BP 168/60
[2017-11-01] MEDS: ENOXAPARIN 40 MG/0.4 ML SYRINGE. SQ SCH (12:49)
[2017-11-01 15:00] VITALS: BP 143/62
--- NOTE | 2017-11-01 18:59 | PDOC2 ---
CONSULT Date of Consult Date of Consult DATE: 11/01/17 TIME: 18:52 Reason for Consult Reason for Consult: Chest pain Referring Physician Referring Physician: Dr. 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 The patient has had some chest pain symptoms in the past and about 2 years ago she had an episode of severe chest pain and a stress test was done that was found to be normal. She hasn't had anymore episodes of chest discomfort until now when she comes in after an episode of chest tightness that is severe and radiates into the neck and shoulders. The discomfort was associated with some shortness of breath. She also had some nausea. No reported diaphoresis. At the time that I saw her she was not having any significant chest discomfort. The enzymes have been negative so far. No acute changes in the EKG Past Medical History Cardiovascular: No pertinent hx Pulmonary: No pertinent hx GI: No pertinent hx Heme/Onc: No pertinent hx Psych: Anxiety Musculoskeletal: Osteoarthritis Social History No ALCOHOL: none Drugs: None Current Problem List Problem List Problems Medical Problems: (1) Chest pain Status: Acute Current Medications Current Medications Current Medications Iohexol (Omnipaque 300 Mg/ml) 75 ml 1X ONCE IV Last administered on 20:26; Start 10/31/17 at 20:30; Stop 10/31/17 at 20:31; Status DC Info (Do NOT chart on this entry -- for MONITORING) 1 each PRN DAILY PRN MC SEE COMMENTS; Start 10/31/17 at 20:30; Stop 11/02/17 at 20:29 Nitroglycerin (Nitrostat) 0.4 mg PRN Q5MIN PRN SL CHEST PAIN; Start 10/31/17 at 22:00; Stop 10/31/17 at 22:35; Status DC Acetaminophen (Tylenol) 1,000 mg 1X ONCE PO Last administered on 10/31/17 22 :19; Start 10/31/17 at 22:30; Stop 10/31/17 at 22:31; Status DC Aspirin (Angel Aspirin) 325 mg 1X ONCE PO Last administered on 10/31/17 22: 19; Start 10/31/17 at 22:30; Stop 10/31/17 at 22:31; Status DC Fentanyl Citrate (Fentanyl 2ml Vial) 25 mcg PRN Q15MIN PRN IV PAIN GREATER THAN 3/10; Start 10/31/17 at 22:00; Stop 11/01/17 at 21:59 Ondansetron HCl (Zofran) 4 mg PRN Q8HRS PRN IV NAUSEA/VOMITING; Start at 22:45; Stop 11/01/17 at 22:44 Morphine Sulfate 4 mg PRN Q2HR PRN IV SEVERE PAIN; Start 10/31/17 at 22:45; Stop 11/01/17 at 22:44 Acetaminophen (Tylenol) 650 mg PRN Q4HRS PRN PO FEVER; Start 10/31/17 at 22:45 ; Stop 11/01/17 at 22:44 Nitroglycerin (Nitrostat) 0.4 mg PRN Q5MIN PRN SL CHEST PAIN; Start 10/31/17 at 22:45; Stop 11/01/17 at 22:44 Pneumococcal Polyvalent Vaccine (Do NOT chart on this placeholder) 1 each 1X ONCE MC ; Start 11/01/17 at 00:30; Stop 11/01/17 at 00:31; Status UNV Pneumococcal Polyvalent Vaccine (Pneumovax 23) 0.5 ml ONCE ONCE VAX IM Last administered on 11/01/17 12:57; Start 11/01/17 at 09:00; Stop 11/01/17 at 09 :01; Status DC Enoxaparin Sodium (Lovenox 40mg Syringe) 40 mg Q24H SQ Last administered on 12:49; Start 11/01/17 at 11:00 Active Scripts Active Ventolin Hfa Inhaler (Albuterol Sulfate) 18 Gm Hfa.aer.ad 2 Puff INH Q4HRS Lisinopril-Hctz 10-12.5 Mg Tab (Lisinopril/Hydrochlorothiazide) 1 Each Tablet 1 Tab PO DAILY Allergies Allergies: Coded Allergies: No Known Drug Allergies (Unverified , 05/05/16) Physical Exam General: Alert, Oriented X3, Cooperative HEENT: Atraumatic, PERRLA Lungs: Clear to auscultation Heart: Regular rate, Normal S1, Normal S2 Abdomen: Normal bowel sounds, Soft Extremities: No edema Vitals VITALS Vital Signs Date Time Temp Pulse Resp B/P (MAP) Pulse Ox O2 Delivery O2 Flow Rate FiO2 11/01/17 15:00 98.1 56 19 143/62 (89) 100 Room Air 98.1 Labs Labs Laboratory Tests Test 10/31/17 17:40 10/31/17 19:05 10/31/17 23:00 11/01/17 05:07 White Blood Count 9.2 x10^3/uL (4.0-11.0) 7.8 x10^3/uL (4.0-11.0) Red Blood Count 4.38 x10^6/uL (3.50-5.40) 4.37 x10^6/uL (3.50-5.40) Hemoglobin 14.0 g/dL (12.0-15.5) 13.8 g/dL (12.0-15.5) Hematocrit 41.6 % (36.0-47.0) 41.8 % (36.0-47.0) Mean Corpuscular Volume 95 fL (79-100) 96 fL (79-100) Mean Corpuscular Hemoglobin 32 pg (25-35) 32 pg (25-35) Mean Corpuscular Hemoglobin Concent 34 g/dL (31-37) 33 g/dL (31-37) Red Cell Distribution Width 13.3 % (11.5-14.5) 12.9 % (11.5-14.5) Platelet Count 332 x10^3/uL (140-400) 301 x10^3/uL (140-400) Neutrophils (%) (Auto) 48 % (31-73) 37 % (31-73) Lymphocytes (%) (Auto) 43 % (24-48) 52 % (24-48) Monocytes (%) (Auto) 6 % (0-9) 7 % (0-9) Eosinophils (%) (Auto) 2 % (0-3) 2 % (0-3) Basophils (%) (Auto) 1 % (0-3) 1 % (0-3) Neutrophils # (Auto) 4.4 x10^3uL (1.8-7.7) 2.9 x10^3uL (1.8-7.7) Lymphocytes # (Auto) 4.0 x10^3/uL (1.0-4.8) 4.1 x10^3/uL (1.0-4.8) Monocytes # (Auto) 0.6 x10^3/uL (0.0-1.1) 0.6 x10^3/uL (0.0-1.1) Eosinophils # (Auto) 0.1 x10^3/uL (0.0-0.7) 0.2 x10^3/uL (0.0-0.7) Basophils # (Auto) 0.1 x10^3/uL (0.0-0.2) 0.1 x10^3/uL (0.0-0.2) D-Dimer (Vicky) < 0.27 ug/mlFEU Sodium Level 141 mmol/L (136-145) 142 mmol/L (136-145) Potassium Level 3.5 mmol/L (3.5-5.1) 3.8 mmol/L (3.5-5.1) Chloride Level 105 mmol/L (98-107) 107 mmol/L (98-107) Carbon Dioxide Level 29 mmol/L (21-32) 25 mmol/L (21-32) Anion Gap 7 (6-14) 10 (6-14) Blood Urea Nitrogen 14 mg/dL (7-20) 11 mg/dL (7-20) Creatinine 0.9 mg/dL (0.6-1.0) 0.8 mg/dL (0.6-1.0) Estimated GFR (Cockcroft-Gault) 76.0 87.1 BUN/Creatinine Ratio 16 (6-20) Glucose Level 131 mg/dL (70-99) 103 mg/dL (70-99) Calcium Level 9.0 mg/dL (8.5-10.1) 8.9 mg/dL (8.5-10.1) Total Bilirubin 0.2 mg/dL (0.2-1.0) Aspartate Amino Transf (AST/SGOT) 22 U/L (15-37) Alanine Aminotransferase (ALT/SGPT) 42 U/L (14-59) Alkaline Phosphatase 101 U/L (46-116) Troponin I Quantitative < 0.017 ng/mL (0.000-0.055) < 0.017 ng/mL (0.000-0.055) < 0.017 ng/mL (0.000-0.055) NQ-Fgx-M-Type Natriuretic Peptide 14 pg/mL (0-124) Total Protein 6.7 g/dL (6.4-8.2) Albumin 3.5 g/dL (3.4-5.0) Albumin/Globulin Ratio 1.1 (1.0-1.7) Laboratory Tests Test 10/31/17 19:05 10/31/17 23:00 11/01/17 05:07 Sodium Level 141 mmol/L (136-145) 142 mmol/L (136-145) Potassium Level 3.5 mmol/L (3.5-5.1) 3.8 mmol/L (3.5-5.1) Chloride Level 105 mmol/L (98-107) 107 mmol/L (98-107) Carbon Dioxide Level 29 mmol/L (21-32) 25 mmol/L (21-32) Anion Gap 7 (6-14) 10 (6-14) Blood Urea Nitrogen 14 mg/dL (7-20) 11 mg/dL (7-20) Creatinine 0.9 mg/dL (0.6-1.0) 0.8 mg/dL (0.6-1.0) Estimated GFR (Cockcroft-Gault) 76.0 87.1 BUN/Creatinine Ratio 16 (6-20) Glucose Level 131 mg/dL (70-99) 103 mg/dL (70-99) Calcium Level 9.0 mg/dL (8.5-10.1) 8.9 mg/dL (8.5-10.1) Total Bilirubin 0.2 mg/dL (0.2-1.0) Aspartate Amino Transf (AST/SGOT) 22 U/L (15-37) Alanine Aminotransferase (ALT/SGPT) 42 U/L (14-59) Alkaline Phosphatase 101 U/L (46-116) Troponin I Quantitative < 0.017 ng/mL (0.000-0.055) < 0.017 ng/mL (0.000-0.055) < 0.017 ng/mL (0.000-0.055) IE-Nrx-B-Type Natriuretic Peptide 14 pg/mL (0-124) Total Protein 6.7 g/dL (6.4-8.2) Albumin 3.5 g/dL (3.4-5.0) Albumin/Globulin Ratio 1.1 (1.0-1.7) White Blood Count 7.8 x10^3/uL (4.0-11.0) Red Blood Count 4.37 x10^6/uL (3.50-5.40) Hemoglobin 13.8 g/dL (12.0-15.5) Hematocrit 41.8 % (36.0-47.0) Mean Corpuscular Volume 96 fL (79-100) Mean Corpuscular Hemoglobin 32 pg (25-35) Mean Corpuscular Hemoglobin Concent 33 g/dL (31-37) Red Cell Distribution Width 12.9 % (11.5-14.5) Platelet Count 301 x10^3/uL (140-400) Neutrophils (%) (Auto) 37 % (31-73) Lymphocytes (%) (Auto) 52 % (24-48) Monocytes (%) (Auto) 7 % (0-9) Eosinophils (%) (Auto) 2 % (0-3) Basophils (%) (Auto) 1 % (0-3) Neutrophils # (Auto) 2.9 x10^3uL (1.8-7.7) Lymphocytes # (Auto) 4.1 x10^3/uL (1.0-4.8) Monocytes # (Auto) 0.6 x10^3/uL (0.0-1.1) Eosinophils # (Auto) 0.2 x10^3/uL (0.0-0.7) Basophils # (Auto) 0.1 x10^3/uL (0.0-0.2) Assessment/Plan Assessment/Plan This patient has a strong family history for heart disease and her symptoms are suspicious. We have done a stress test in the past that was not diagnostic. We've discussed this situation with the patient as well as the options and risks and it was decided to do a heart catheterization tomorrow morning. We will set it up. Thank you very much for asking me to participate in the care of this patient. JOSE VILLALPANDO MD Nov 01, 2017 18:59
[2017-11-01 19:00] VITALS: BP 144/74
[2017-11-01] MEDS ORDERED: diphenhydrAMINE HCL 25 MG CAPSULE PO PRN (19:45)
[2017-11-01] MEDS: IV 1/2 NORMAL SALINE 1,000 ML IV SCH (21:09)
[2017-11-01 23:00] VITALS: BP 175/66
[2017-11-02] VITALS (7 sets, daily range): BP systolic 113–160; BP diastolic 47–68
[2017-11-02] MEDS: ENOXAPARIN 40 MG/0.4 ML SYRINGE. SQ SCH (11:00)
--- NOTE | 2017-11-02 11:11 | PDOC ---
MODERATE SEDATION ASSESSMENT RISKS/ALTERNATIVES Risks/Alternatives Risks and alternatives of this type of sedation and procedure discussed with: RISK/ALTERNATIVES: Patient H & P ON CHART H & P H & P on chart and reviewed for co-morbid conditions and appropriate labs. H&P ON CHART: Yes STATUS PREG STATUS ASSESSED: Yes MEDS/ALLERGIES REVIEWED Meds/Allergies Reviewed Medications and Allergies including time and route of recently administered narcotics and sedatives. MEDS/ALLERGIES REVIEWED: Yes ASA RATING ASA RATING: II AIRWAY ASSESSMENT Airway Assessment Airway patency, oral function limitations, presence of caps, crowns, dentures, partials, and ability to extend neck assessed. AIRWAY ASSESSMENT: Yes MALLAMPATI SCORE MALLAMPATI SCORE: II PRE-SEDATION ASSESSMENT PRE-SEDATION ASSESSMENT: Yes JOSE VILLALPANDO MD Nov 02, 2017 11:11
[2017-11-02] MEDS ORDERED: LIDOCAINE 2% 20 ML VIAL. ONE (11:59)
[2017-11-02] MEDS ORDERED: IOHEXOL 300 MG/ML 100ML VIAL. ONE (11:59)
[2017-11-02] MEDS ORDERED: fentaNYL PF VIAL 100 MCG/2 ML VIAL ONE (13:13)
[2017-11-02] MEDS ORDERED: MIDAZOLAM HCL/PF 5 MG/5 ML VIAL. ONE (13:13)
[2017-11-02] MEDS ORDERED: CONTRAST GIVEN MC PRN (13:45)
[2017-11-02] MEDS ORDERED: LIDOCAINE 2% 20 ML VIAL. IJ ONE (13:45)
[2017-11-02] MEDS ORDERED: MIDAZOLAM HCL/PF 5 MG/5 ML VIAL. IV ONE (13:45)
[2017-11-02] MEDS ORDERED: IOHEXOL 300 MG/ML 100ML VIAL. IART ONE (13:45)
[2017-11-02] MEDS ORDERED: fentaNYL PF VIAL 100 MCG/2 ML VIAL IV ONE (13:45)
[2017-11-02] MEDS ORDERED: diphenhydrAMINE 50 MG/ML VIAL IVP PRN (16:15)
[2017-11-02] MEDS ORDERED: diphenhydrAMINE HCL 25 MG CAPSULE PO PRN (16:30)
[2017-11-02] MEDS: HYDROcodone/APAP 5/325MG 1 TAB TABLET PO PRN ×2 (16:35→20:48)
--- NOTE | 2017-11-02 17:30 | PDOC ---
PROGRESS NOTES Chief Complaint Chief Complaint impression 1. angina plan heart cath today Physical Exam Physical Exam Review of Systems Review of Systems Constitutional: Denies fever or chills. [] Eyes: Denies change in visual acuity. [] HENT: Denies nasal congestion or sore throat. [] Respiratory: Denies cough or shortness of breath. [] Cardiovascular: Anterior left sided chest pain, which does radiate to the back at times, with shortness of breath. GI: Denies abdominal pain, nausea, vomiting, bloody stools or diarrhea. [] : Denies dysuria. [] Musculoskeletal: Denies back pain or joint pain. [] Integument: Denies rash. [] Neurologic: Denies headache, focal weakness or sensory changes. [] Endocrine: Denies polyuria or polydipsia. [] Lymphatic: Denies swollen glands. [] Psychiatric: Denies depression or anxiety. [] 14 pt ros otherwise neg except as in HPI Vitals Vitals Vital Signs Date Time Temp Pulse Resp B/P (MAP) Pulse Ox O2 Delivery O2 Flow Rate FiO2 11/02/17 16:35 20 98 Room Air 2.0 11/02/17 15:00 96.1 58 141/59 (86) 96.1 Physical Exam General: Alert, Oriented X3, Cooperative Heart: Regular rate, Normal S1, Normal S2 Abdomen: Normal bowel sounds, Soft Extremities: No edema Labs LABS Physical Exam Constitutional: Well developed, well nourished, no acute distress, non-toxic appearance. [] HENT: Normocephalic, atraumatic, bilateral external ears normal, oropharynx moist, no oral exudates, nose normal. [] Eyes: PERRLA, EOMI, conjunctiva normal, no discharge. [] Neck: Normal range of motion, no tenderness, supple, no stridor. [] Cardiovascular:Heart rate regular rhythm, no murmur [] Lungs & Thorax: Bilateral breath sounds clear to auscultation [] Abdomen: Bowel sounds normal, soft, no tenderness, no masses, no pulsatile masses. [] Skin: Warm, dry, no erythema, no rash. [] Back: No tenderness, no CVA tenderness. [] Extremities: No tenderness, no cyanosis, no clubbing, ROM intact, no edema. [] Neurologic: Alert and oriented X 3, normal motor function, normal sensory function, no focal deficits noted. [] Psychologic: Affect normal, judgement normal, mood normal. [] Assessment and Plan Assessmemt and Plan Problems Medical Problems: (1) Chest pain Status: Acute Problems: Comment Review of Relevant I have reviewed the following items matty (where applicable) has been applied. Labs Laboratory Tests Test 10/31/17 17:40 10/31/17 19:05 10/31/17 23:00 11/01/17 05:07 White Blood Count 9.2 x10^3/uL (4.0-11.0) 7.8 x10^3/uL (4.0-11.0) Red Blood Count 4.38 x10^6/uL (3.50-5.40) 4.37 x10^6/uL (3.50-5.40) Hemoglobin 14.0 g/dL (12.0-15.5) 13.8 g/dL (12.0-15.5) Hematocrit 41.6 % (36.0-47.0) 41.8 % (36.0-47.0) Mean Corpuscular Volume 95 fL (79-100) 96 fL (79-100) Mean Corpuscular Hemoglobin 32 pg (25-35) 32 pg (25-35) Mean Corpuscular Hemoglobin Concent 34 g/dL (31-37) 33 g/dL (31-37) Red Cell Distribution Width 13.3 % (11.5-14.5) 12.9 % (11.5-14.5) Platelet Count 332 x10^3/uL (140-400) 301 x10^3/uL (140-400) Neutrophils (%) (Auto) 48 % (31-73) 37 % (31-73) Lymphocytes (%) (Auto) 43 % (24-48) 52 % (24-48) Monocytes (%) (Auto) 6 % (0-9) 7 % (0-9) Eosinophils (%) (Auto) 2 % (0-3) 2 % (0-3) Basophils (%) (Auto) 1 % (0-3) 1 % (0-3) Neutrophils # (Auto) 4.4 x10^3uL (1.8-7.7) 2.9 x10^3uL (1.8-7.7) Lymphocytes # (Auto) 4.0 x10^3/uL (1.0-4.8) 4.1 x10^3/uL (1.0-4.8) Monocytes # (Auto) 0.6 x10^3/uL (0.0-1.1) 0.6 x10^3/uL (0.0-1.1) Eosinophils # (Auto) 0.1 x10^3/uL (0.0-0.7) 0.2 x10^3/uL (0.0-0.7) Basophils # (Auto) 0.1 x10^3/uL (0.0-0.2) 0.1 x10^3/uL (0.0-0.2) D-Dimer (Vicky) < 0.27 ug/mlFEU Sodium Level 141 mmol/L (136-145) 142 mmol/L (136-145) Potassium Level 3.5 mmol/L (3.5-5.1) 3.8 mmol/L (3.5-5.1) Chloride Level 105 mmol/L (98-107) 107 mmol/L (98-107) Carbon Dioxide Level 29 mmol/L (21-32) 25 mmol/L (21-32) Anion Gap 7 (6-14) 10 (6-14) Blood Urea Nitrogen 14 mg/dL (7-20) 11 mg/dL (7-20) Creatinine 0.9 mg/dL (0.6-1.0) 0.8 mg/dL (0.6-1.0) Estimated GFR (Cockcroft-Gault) 76.0 87.1 BUN/Creatinine Ratio 16 (6-20) Glucose Level 131 mg/dL (70-99) 103 mg/dL (70-99) Calcium Level 9.0 mg/dL (8.5-10.1) 8.9 mg/dL (8.5-10.1) Total Bilirubin 0.2 mg/dL (0.2-1.0) Aspartate Amino Transf (AST/SGOT) 22 U/L (15-37) Alanine Aminotransferase (ALT/SGPT) 42 U/L (14-59) Alkaline Phosphatase 101 U/L (46-116) Troponin I Quantitative < 0.017 ng/mL (0.000-0.055) < 0.017 ng/mL (0.000-0.055) < 0.017 ng/mL (0.000-0.055) UF-Pzb-S-Type Natriuretic Peptide 14 pg/mL (0-124) Total Protein 6.7 g/dL (6.4-8.2) Albumin 3.5 g/dL (3.4-5.0) Albumin/Globulin Ratio 1.1 (1.0-1.7) Medications Current Medications Iohexol (Omnipaque 300 Mg/ml) 75 ml 1X ONCE IV Last administered on 20:26; Start 10/31/17 at 20:30; Stop 10/31/17 at 20:31; Status DC Info (Do NOT chart on this entry -- for MONITORING) 1 each PRN DAILY PRN MC SEE COMMENTS; Start 10/31/17 at 20:30; Stop 11/02/17 at 20:29 Nitroglycerin (Nitrostat) 0.4 mg PRN Q5MIN PRN SL CHEST PAIN; Start 10/31/17 at 22:00; Stop 10/31/17 at 22:35; Status DC Acetaminophen (Tylenol) 1,000 mg 1X ONCE PO Last administered on 10/31/17 22 :19; Start 10/31/17 at 22:30; Stop 10/31/17 at 22:31; Status DC Aspirin (Angel Aspirin) 325 mg 1X ONCE PO Last administered on 10/31/17 22: 19; Start 10/31/17 at 22:30; Stop 10/31/17 at 22:31; Status DC Fentanyl Citrate (Fentanyl 2ml Vial) 25 mcg PRN Q15MIN PRN IV PAIN GREATER THAN 3/10; Start 10/31/17 at 22:00; Stop 11/01/17 at 21:59; Status DC Ondansetron HCl (Zofran) 4 mg PRN Q8HRS PRN IV NAUSEA/VOMITING; Start at 22:45; Stop 11/01/17 at 22:44; Status DC Morphine Sulfate 4 mg PRN Q2HR PRN IV SEVERE PAIN Last administered on 19:55; Start 10/31/17 at 22:45; Stop 11/01/17 at 22:44; Status DC Acetaminophen (Tylenol) 650 mg PRN Q4HRS PRN PO FEVER; Start 10/31/17 at 22:45 ; Stop 11/01/17 at 22:44; Status DC Nitroglycerin (Nitrostat) 0.4 mg PRN Q5MIN PRN SL CHEST PAIN; Start 10/31/17 at 22:45; Stop 11/01/17 at 22:44; Status DC Pneumococcal Polyvalent Vaccine (Do NOT chart on this placeholder) 1 each 1X ONCE MC ; Start 11/01/17 at 00:30; Stop 11/01/17 at 00:31; Status UNV Pneumococcal Polyvalent Vaccine (Pneumovax 23) 0.5 ml ONCE ONCE VAX IM Last administered on 11/01/17 12:57; Start 11/01/17 at 09:00; Stop 11/01/17 at 09 :01; Status DC Enoxaparin Sodium (Lovenox 40mg Syringe) 40 mg Q24H SQ Last administered on 12:49; Start 11/01/17 at 11:00 Sodium Chloride 1,000 ml @ 60 mls/hr [id number] IV Last administered on 21:09; Start 11/01/17 at 19:30 Diphenhydramine HCl (Benadryl) 50 mg PRN QHS PRN PO INSOMNIA Last administered on 11/01/17 21:09; Start 11/01/17 at 19:45 Iohexol (Omnipaque 300 Mg/ml) 100 ml STK-MED ONCE .ROUTE ; Start 11/02/17 at 11 :59; Stop 11/02/17 at 12:00; Status DC Lidocaine HCl 20 ml STK-MED ONCE .ROUTE ; Start 11/02/17 at 11:59; Stop at 12:00; Status DC Heparin Sodium/ Sodium Chloride 500 ml @ As Directed STK-MED ONCE .ROUTE ; Start 11/02/17 at 11:59; Stop 11/02/17 at 12:00; Status DC Fentanyl Citrate (Fentanyl 2ml Vial) 100 mcg STK-MED ONCE .ROUTE ; Start at 13:13; Stop 11/02/17 at 13:14; Status DC Midazolam HCl (Versed) 5 mg STK-MED ONCE .ROUTE ; Start 11/02/17 at 13:13; Stop 11/02/17 at 13:14; Status DC Heparin Sodium/ Sodium Chloride 1,000 unit 1X ONCE IART Last administered on 11/02/17 13:49; Start 11/02/17 at 13:45; Stop 11/02/17 at 13:46; Status DC Heparin Sodium/ Sodium Chloride 1,000 unit 1X ONCE IART Last administered on 11/02/17 13:40; Start 11/02/17 at 13:45; Stop 11/02/17 at 13:46; Status DC Midazolam HCl (Versed) 2 mg 1X ONCE IV Last administered on 11/02/17 13:50; Start 11/02/17 at 13:45; Stop 11/02/17 at 13:46; Status DC Fentanyl Citrate (Fentanyl 2ml Vial) 50 mcg 1X ONCE IV Last administered on 13:51; Start 11/02/17 at 13:45; Stop 11/02/17 at 13:46; Status DC Iohexol (Omnipaque 300 Mg/ml) 91 ml 1X ONCE IART Last administered on 13:49; Start 11/02/17 at 13:45; Stop 11/02/17 at 13:46; Status DC Lidocaine HCl 20 ml 1X ONCE IJ Last administered on 11/02/17 13:50; Start 11/02/17 at 13:45; Stop 11/02/17 at 13:46; Status DC Info (Do NOT chart on this entry -- for MONITORING) 1 each PRN DAILY PRN MC SEE COMMENTS; Start 11/02/17 at 13:45; Stop 11/04/17 at 13:44 Acetaminophen/ Hydrocodone Bitart (Lortab 5/325) 1 tab PRN Q4HRS PRN PO PAIN Last administered on 11/02/17 16:35; Start 11/02/17 at 15:45 Diphenhydramine HCl (Benadryl) 25 mg PRN Q6HRS PRN IVP ITCHING; Start at 16:15; Stop 11/02/17 at 16:31; Status DC Diphenhydramine HCl (Benadryl) 25 mg PRN Q6HRS PRN PO ITCHING; Start 12/13/17 at 16:30 Active Scripts Active Ventolin Hfa Inhaler (Albuterol Sulfate) 18 Gm Hfa.aer.ad 2 Puff INH Q4HRS Lisinopril-Hctz 10-12.5 Mg Tab (Lisinopril/Hydrochlorothiazide) 1 Each Tablet 1 Tab PO DAILY Vitals/I & O Vital Sign - Last 24 Hours 11/01/17 11/01/17 11/01/17 11/01/17 19:00 19:55 20:00 20:25 Temp 98.1 98.1 Pulse 70 Resp 18 B/P (MAP) 144/74 (97) Pulse Ox 99 100 100 O2 Delivery Room Air Room Air Room Air Room Air 11/01/17 11/02/17 11/02/17 11/02/17 23:00 03:00 07:00 08:00 Temp 97.7 97.7 97.9 97.7 97.7 97.9 Pulse 63 62 60 Resp 18 18 20 B/P (MAP) 175/66 (102) 130/57 (81) 139/54 (82) Pulse Ox 99 99 95 O2 Delivery Room Air Room Air Room Air Room Air 11/02/17 11/02/17 11/02/17 11/02/17 11:00 13:51 13:54 15:00 Temp 97.9 96.1 97.9 96.1 Pulse 64 63 58 Resp 20 17 17 20 B/P (MAP) 113/47 (69) 141/59 (86) Pulse Ox 96 100 100 98 O2 Delivery Room Air Nasal Cannula Room Air O2 Flow Rate 2.0 11/02/17 16:35 Resp 20 Pulse Ox 98 O2 Delivery Room Air O2 Flow Rate 2.0 Intake and Output 11/01/17 11/01/17 11/02/17 15:00 23:00 07:00 Intake Total 0 ml 0 ml 480 ml Output Total 1 ml Balance 0 ml 0 ml 479 ml ANNE AMIN MD Nov 02, 2017 17:30
[2017-11-02] MEDS ORDERED: ZOLPIDEM 5 MG TABLET. PO PRN (17:45)
[2017-11-02] MEDS: IV 1/2 NORMAL SALINE 1,000 ML IV SCH (18:11)
--- NOTE | 2017-11-02 18:11 | CARD ---
APPROVED REPORT Procedure(s) performed: moderate Sedation: 37 Minutes HISTORY The patient is a 67 year-old female with a history of : hypertension. INDICATION The indication(s) include : unstable angina , chest pain, abnormal ECG. CASE TECHNIQUE The patient was brought electively into the cardiac catheterization lab. A timeout was performed conf irming the patient's name, date of , procedure, and site of procedure. All necessary parties wer e wearing the appropriate personal protective equipment and radiation monitoring devices. After expla ining the risks and benefits of the procedure, informed consent was obtained.(See nursing notes for m edications administered). The right groin was sterilely prepped and draped. The right femoral groin w as infiltrated with 2% Lidocaine subcutaneous anesthesia. During this case, Fluoroscopy and low osmol ar contrast were used for imaging. A sheath was inserted into the right femoral artery without diffic ulty. Coronary angiography was performed using coronary diagnostic catheters. The left coronary syste m was accessed and visualized with a Diagnostic catheter. The right coronary system was accessed and visualized with a Diagnostic catheter. The left ventricle was accessed and visualized with a Diagnost ic catheter. Left ventricular/Aortic Valve gradient assessed on pullback. Left ventriculogram was per formed in GUERRA projection. Pre-demployment femoral angiogram was performed . Hemostasis was obtained w ith manual pressure following sheath removal without any complications. The patient tolerated the pro cedure well and there were no complications associated with the procedure. Coronary Angiography The patient's coronary anatomy is right dominant. The left main coronary artery is a medium size vessel free of disease. The left main bifurcates to th e left anterior descending and circumflex. The left anterior descending artery is a medium size vessel free of disease. The first diagonal branc h is a small size vessel free of disease. The second diagonal branch is a small size vessel free of d isease. The third diagonal branch is a small size vessel free of disease. The circumflex artery is a medium size vessel free of disease. The first obtuse marginal branch is a small size vessel free of disease. The second obtuse marginal branch is a small size vessel free of d isease. The third obtuse marginal branch is a small size vessel free of disease. The right coronary artery is a medium size vessel free of disease. The right posterior descending art basilio is a small size vessel free of disease. The right posterolateral branch is a small size vessel fr ee of disease. Left Ventriculography The left ventricle is normal in size with normal contractility. The left ventricular ejection fractio n is estimated to be 70%. The left ventricular end diastolic pressure is 20 mmHg. There was no gradie nt across the aortic valve upon pullback. Conclusion This pt has no CAD and her problems may be secondary to HTN therefore I would recommend medical treat ment with tight control of the BP May go home in AM Recommendations Medical Therapy
[2017-11-03 03:00] VITALS: BP 131/63
[2017-11-03] MEDS: IV 1/2 NORMAL SALINE 1,000 ML IV SCH (04:50)
[2017-11-03 07:00] VITALS: BP 119/50
[2017-11-03] MEDS ORDERED: LISINOPRIL 5 MG TABLET. PO SCH (09:00)
[2017-11-03 11:00] VITALS: BP 148/50
[2017-11-03] MEDS: ENOXAPARIN 40 MG/0.4 ML SYRINGE. SQ SCH (11:00)
[2017-11-03 15:23] VITALS: BP 109/62
--- NOTE | 2017-11-03 15:31 | PDOC ---
PROGRESS NOTES Subjective Subjective No chest pains Objective Objective Vital Signs Date Time Temp Pulse Resp B/P (MAP) Pulse Ox O2 Delivery O2 Flow Rate FiO2 11/03/17 15:23 98.1 80 18 109/62 (78) 97 Room Air 98.1 11/02/17 23:55 2.0 Intake and Output 11/03/17 07:00 Intake Total 1250 ml Balance 1250 ml Intake Oral 250 ml IV Total 1000 ml # Voids 2 Physical Exam Physical Exam No changes in cardiac exam Assessment Assessment No CAD Stable. May go home Follow up BP and adjust meds as an out-pt Problems Medical Problems: (1) Chest pain Status: Acute Comment Review of Relevant I have reviewed the following items matty (where applicable) has been applied. Medications Current Medications Iohexol (Omnipaque 300 Mg/ml) 75 ml 1X ONCE IV Last administered on 20:26; Start 10/31/17 at 20:30; Stop 10/31/17 at 20:31; Status DC Info (Do NOT chart on this entry -- for MONITORING) 1 each PRN DAILY PRN MC SEE COMMENTS; Start 10/31/17 at 20:30; Stop 11/02/17 at 20:29; Status DC Nitroglycerin (Nitrostat) 0.4 mg PRN Q5MIN PRN SL CHEST PAIN; Start 10/31/17 at 22:00; Stop 10/31/17 at 22:35; Status DC Acetaminophen (Tylenol) 1,000 mg 1X ONCE PO Last administered on 10/31/17 22 :19; Start 10/31/17 at 22:30; Stop 10/31/17 at 22:31; Status DC Aspirin (Angel Aspirin) 325 mg 1X ONCE PO Last administered on 10/31/17 22: 19; Start 10/31/17 at 22:30; Stop 10/31/17 at 22:31; Status DC Fentanyl Citrate (Fentanyl 2ml Vial) 25 mcg PRN Q15MIN PRN IV PAIN GREATER THAN 3/10; Start 10/31/17 at 22:00; Stop 11/01/17 at 21:59; Status DC Ondansetron HCl (Zofran) 4 mg PRN Q8HRS PRN IV NAUSEA/VOMITING; Start at 22:45; Stop 11/01/17 at 22:44; Status DC Morphine Sulfate 4 mg PRN Q2HR PRN IV SEVERE PAIN Last administered on 19:55; Start 10/31/17 at 22:45; Stop 11/01/17 at 22:44; Status DC Acetaminophen (Tylenol) 650 mg PRN Q4HRS PRN PO FEVER; Start 10/31/17 at 22:45 ; Stop 11/01/17 at 22:44; Status DC Nitroglycerin (Nitrostat) 0.4 mg PRN Q5MIN PRN SL CHEST PAIN; Start 10/31/17 at 22:45; Stop 11/01/17 at 22:44; Status DC Pneumococcal Polyvalent Vaccine (Do NOT chart on this placeholder) 1 each 1X ONCE MC ; Start 11/01/17 at 00:30; Stop 11/01/17 at 00:31; Status UNV Pneumococcal Polyvalent Vaccine (Pneumovax 23) 0.5 ml ONCE ONCE VAX IM Last administered on 11/01/17 12:57; Start 11/01/17 at 09:00; Stop 11/01/17 at 09 :01; Status DC Enoxaparin Sodium (Lovenox 40mg Syringe) 40 mg Q24H SQ Last administered on 12:49; Start 11/01/17 at 11:00 Sodium Chloride 1,000 ml @ 60 mls/hr [id number] IV Last administered on 18:11; Start 11/01/17 at 19:30 Diphenhydramine HCl (Benadryl) 50 mg PRN QHS PRN PO INSOMNIA Last administered on 11/01/17 21:09; Start 11/01/17 at 19:45 Iohexol (Omnipaque 300 Mg/ml) 100 ml STK-MED ONCE .ROUTE ; Start 11/02/17 at 11 :59; Stop 11/02/17 at 12:00; Status DC Lidocaine HCl 20 ml STK-MED ONCE .ROUTE ; Start 11/02/17 at 11:59; Stop at 12:00; Status DC Heparin Sodium/ Sodium Chloride 500 ml @ As Directed STK-MED ONCE .ROUTE ; Start 11/02/17 at 11:59; Stop 11/02/17 at 12:00; Status DC Fentanyl Citrate (Fentanyl 2ml Vial) 100 mcg STK-MED ONCE .ROUTE ; Start at 13:13; Stop 11/02/17 at 13:14; Status DC Midazolam HCl (Versed) 5 mg STK-MED ONCE .ROUTE ; Start 11/02/17 at 13:13; Stop 11/02/17 at 13:14; Status DC Heparin Sodium/ Sodium Chloride 1,000 unit 1X ONCE IART Last administered on 11/02/17 13:49; Start 11/02/17 at 13:45; Stop 11/02/17 at 13:46; Status DC Heparin Sodium/ Sodium Chloride 1,000 unit 1X ONCE IART Last administered on 11/02/17 13:40; Start 11/02/17 at 13:45; Stop 11/02/17 at 13:46; Status DC Midazolam HCl (Versed) 2 mg 1X ONCE IV Last administered on 11/02/17 13:50; Start 11/02/17 at 13:45; Stop 11/02/17 at 13:46; Status DC Fentanyl Citrate (Fentanyl 2ml Vial) 50 mcg 1X ONCE IV Last administered on 13:51; Start 11/02/17 at 13:45; Stop 11/02/17 at 13:46; Status DC Iohexol (Omnipaque 300 Mg/ml) 91 ml 1X ONCE IART Last administered on 13:49; Start 11/02/17 at 13:45; Stop 11/02/17 at 13:46; Status DC Lidocaine HCl 20 ml 1X ONCE IJ Last administered on 11/02/17 13:50; Start 11/02/17 at 13:45; Stop 11/02/17 at 13:46; Status DC Info (Do NOT chart on this entry -- for MONITORING) 1 each PRN DAILY PRN MC SEE COMMENTS; Start 11/02/17 at 13:45; Stop 11/04/17 at 13:44 Acetaminophen/ Hydrocodone Bitart (Lortab 5/325) 1 tab PRN Q4HRS PRN PO PAIN Last administered on 11/02/17 20:48; Start 11/02/17 at 15:45 Diphenhydramine HCl (Benadryl) 25 mg PRN Q6HRS PRN IVP ITCHING; Start at 16:15; Stop 11/02/17 at 16:31; Status DC Diphenhydramine HCl (Benadryl) 25 mg PRN Q6HRS PRN PO ITCHING; Start 11/02/17 at 16:30 Lisinopril (Prinivil) 5 mg DAILY PO Last administered on 11/03/17 09:48; Start 11/03/17 at 09:00 Zolpidem Tartrate (Ambien) 5 mg PRN QHS PRN PO INSOMNIA Last administered on 23:17; Start 11/02/17 at 17:45 Active Scripts Active Ventolin Hfa Inhaler (Albuterol Sulfate) 18 Gm Hfa.aer.ad 2 Puff INH Q4HRS Lisinopril-Hctz 10-12.5 Mg Tab (Lisinopril/Hydrochlorothiazide) 1 Each Tablet 1 Tab PO DAILY Vitals/I & O Vital Sign - Last 24 Hours 11/02/17 11/02/17 11/02/17 11/02/17 16:35 19:00 20:00 20:48 Temp 98.6 98.6 Pulse 70 Resp 20 18 18 B/P (MAP) 124/60 (81) Pulse Ox 98 98 98 O2 Delivery Room Air Room Air Room Air Room Air O2 Flow Rate 2.0 2.0 11/02/17 11/02/17 11/02/17 11/03/17 21:48 23:00 23:55 03:00 Temp 98.1 97.7 98.1 97.7 Pulse 62 64 Resp 14 18 18 B/P (MAP) 143/62 (89) 131/63 (85) Pulse Ox 99 98 O2 Delivery Room Air Room Air Room Air Room Air O2 Flow Rate 2.0 11/03/17 11/03/17 11/03/17 11/03/17 07:00 09:48 11:00 15:23 Temp 96.1 98.2 98.1 96.1 98.2 98.1 Pulse 60 60 69 80 Resp 18 19 18 B/P (MAP) 119/50 (73) 119/50 148/50 (82) 109/62 (78) Pulse Ox 91 98 97 O2 Delivery Room Air Room Air Room Air Intake and Output 11/02/17 11/02/17 11/03/17 15:00 23:00 07:00 Intake Total 250 ml 1000 ml Balance 250 ml 1000 ml JOSE VILLALPANDO MD Nov 03, 2017 15:31
--- NOTE | 2017-11-03 16:08 | PDOC3 ---
Discharge Summary Date of Admission: Oct 31, 2017 Date of Discharge: Nov 03, 2017 Follow-Up: 3-5 days Admitting Diagnosis comment: Chief Complaint Chief Complaint impression 1. angina plan heart cath OK D/C TODAY Physical Exam Physical Exam Review of Systems Review of Systems Constitutional: Denies fever or chills. [] Eyes: Denies change in visual acuity. [] HENT: Denies nasal congestion or sore throat. [] Respiratory: Denies cough or shortness of breath. [] Cardiovascular: Anterior left sided chest pain, which does radiate to the back at times, with shortness of breath. GI: Denies abdominal pain, nausea, vomiting, bloody stools or diarrhea. [] : Denies dysuria. [] Musculoskeletal: Denies back pain or joint pain. [] Integument: Denies rash. [] Neurologic: Denies headache, focal weakness or sensory changes. [] Endocrine: Denies polyuria or polydipsia. [] Lymphatic: Denies swollen glands. [] Psychiatric: Denies depression or anxiety. [] 14 pt ros otherwise neg except as in HPI Vitals Vitals Vital Signs Date Time Temp Pulse Resp B/P (MAP) Pulse Ox O2 Delivery O2 Flow Rate FiO2 11/03/17 15:23 98.1 80 18 109/62 (78) 97 Room Air 98.1 11/02/17 23:55 2.0 Physical Exam General: Alert, Oriented X3, Cooperative Heart: Regular rate, Normal S1, Normal S2 Lungs: Clear Abdomen: Normal bowel sounds, Soft Extremities: No clubbing, No cyanosis, No edema Skin: No rashes DISCHARGE DIAGNOSIS Assessmemt and Plan Problems Medical Problems: (1) Chest pain impression 1. angina Normal coronary cath, no critical stenosis 2. HYPERTENSION plan heart cath OK D/C TODAY off work until seen by pcp Problems: Problems: FINAL DIAGNOSIS Problems Medical Problems: (1) Chest pain Status: Acute Brief Hospital Course Ms. Roldan is a 67 old [sex] who presented with [ ] Chief Complaint Chief Complaint impression 1. angina plan heart cath OK D/C TODAY Physical Exam Physical Exam Review of Systems Review of Systems Constitutional: Denies fever or chills. [] Eyes: Denies change in visual acuity. [] HENT: Denies nasal congestion or sore throat. [] Respiratory: Denies cough or shortness of breath. [] Cardiovascular: Anterior left sided chest pain, which does radiate to the back at times, with shortness of breath. GI: Denies abdominal pain, nausea, vomiting, bloody stools or diarrhea. [] : Denies dysuria. [] Musculoskeletal: Denies back pain or joint pain. [] Integument: Denies rash. [] Neurologic: Denies headache, focal weakness or sensory changes. [] Endocrine: Denies polyuria or polydipsia. [] Lymphatic: Denies swollen glands. [] Psychiatric: Denies depression or anxiety. [] 14 pt ros otherwise neg except as in HPI Vitals Vitals Vital Signs Date Time Temp Pulse Resp B/P (MAP) Pulse Ox O2 Delivery O2 Flow Rate FiO2 11/03/17 15:23 98.1 80 18 109/62 (78) 97 Room Air 98.1 11/02/17 23:55 2.0 Physical Exam General: Alert, Oriented X3, Cooperative Heart: Regular rate, Normal S1, Normal S2 Lungs: Clear Abdomen: Normal bowel sounds, Soft Extremities: No clubbing, No cyanosis, No edema Skin: No rashes Assessment and Plan Assessmemt and Plan Problems Medical Problems: (1) Chest pain Status: Acute impression 1. angina 2. HYPERTENSION plan heart cath OK D/C TODAY Problems: Discharge Medications Current Medications Iohexol (Omnipaque 300 Mg/ml) 75 ml 1X ONCE IV Last administered on 20:26; Start 10/31/17 at 20:30; Stop 10/31/17 at 20:31; Status DC Info (Do NOT chart on this entry -- for MONITORING) 1 each PRN DAILY PRN MC SEE COMMENTS; Start 10/31/17 at 20:30; Stop 11/02/17 at 20:29; Status DC Nitroglycerin (Nitrostat) 0.4 mg PRN Q5MIN PRN SL CHEST PAIN; Start 10/31/17 at 22:00; Stop 10/31/17 at 22:35; Status DC Acetaminophen (Tylenol) 1,000 mg 1X ONCE PO Last administered on 10/31/17 22 :19; Start 10/31/17 at 22:30; Stop 10/31/17 at 22:31; Status DC Aspirin (Angel Aspirin) 325 mg 1X ONCE PO Last administered on 10/31/17 22: 19; Start 10/31/17 at 22:30; Stop 10/31/17 at 22:31; Status DC Fentanyl Citrate (Fentanyl 2ml Vial) 25 mcg PRN Q15MIN PRN IV PAIN GREATER THAN 3/10; Start 10/31/17 at 22:00; Stop 11/01/17 at 21:59; Status DC Ondansetron HCl (Zofran) 4 mg PRN Q8HRS PRN IV NAUSEA/VOMITING; Start at 22:45; Stop 11/01/17 at 22:44; Status DC Morphine Sulfate 4 mg PRN Q2HR PRN IV SEVERE PAIN Last administered on 19:55; Start 10/31/17 at 22:45; Stop 11/01/17 at 22:44; Status DC Acetaminophen (Tylenol) 650 mg PRN Q4HRS PRN PO FEVER; Start 10/31/17 at 22:45 ; Stop 11/01/17 at 22:44; Status DC Nitroglycerin (Nitrostat) 0.4 mg PRN Q5MIN PRN SL CHEST PAIN; Start 10/31/17 at 22:45; Stop 11/01/17 at 22:44; Status DC Pneumococcal Polyvalent Vaccine (Do NOT chart on this placeholder) 1 each 1X ONCE MC ; Start 11/01/17 at 00:30; Stop 11/01/17 at 00:31; Status UNV Pneumococcal Polyvalent Vaccine (Pneumovax 23) 0.5 ml ONCE ONCE VAX IM Last administered on 11/01/17 12:57; Start 11/01/17 at 09:00; Stop 11/01/17 at 09 :01; Status DC Enoxaparin Sodium (Lovenox 40mg Syringe) 40 mg Q24H SQ Last administered on 12:49; Start 11/01/17 at 11:00 Sodium Chloride 1,000 ml @ 60 mls/hr [id number] IV Last administered on 18:11; Start 11/01/17 at 19:30 Diphenhydramine HCl (Benadryl) 50 mg PRN QHS PRN PO INSOMNIA Last administered on 11/01/17 21:09; Start 11/01/17 at 19:45 Iohexol (Omnipaque 300 Mg/ml) 100 ml STK-MED ONCE .ROUTE ; Start 11/02/17 at 11 :59; Stop 11/02/17 at 12:00; Status DC Lidocaine HCl 20 ml STK-MED ONCE .ROUTE ; Start 11/02/17 at 11:59; Stop at 12:00; Status DC Heparin Sodium/ Sodium Chloride 500 ml @ As Directed STK-MED ONCE .ROUTE ; Start 11/02/17 at 11:59; Stop 11/02/17 at 12:00; Status DC Fentanyl Citrate (Fentanyl 2ml Vial) 100 mcg STK-MED ONCE .ROUTE ; Start at 13:13; Stop 11/02/17 at 13:14; Status DC Midazolam HCl (Versed) 5 mg STK-MED ONCE .ROUTE ; Start 11/02/17 at 13:13; Stop 11/02/17 at 13:14; Status DC Heparin Sodium/ Sodium Chloride 1,000 unit 1X ONCE IART Last administered on 11/02/17 13:49; Start 11/02/17 at 13:45; Stop 11/02/17 at 13:46; Status DC Heparin Sodium/ Sodium Chloride 1,000 unit 1X ONCE IART Last administered on 11/02/17 13:40; Start 11/02/17 at 13:45; Stop 11/02/17 at 13:46; Status DC Midazolam HCl (Versed) 2 mg 1X ONCE IV Last administered on 11/02/17 13:50; Start 11/02/17 at 13:45; Stop 11/02/17 at 13:46; Status DC Fentanyl Citrate (Fentanyl 2ml Vial) 50 mcg 1X ONCE IV Last administered on 13:51; Start 11/02/17 at 13:45; Stop 11/02/17 at 13:46; Status DC Iohexol (Omnipaque 300 Mg/ml) 91 ml 1X ONCE IART Last administered on 13:49; Start 11/02/17 at 13:45; Stop 11/02/17 at 13:46; Status DC Lidocaine HCl 20 ml 1X ONCE IJ Last administered on 11/02/17 13:50; Start 11/02/17 at 13:45; Stop 11/02/17 at 13:46; Status DC Info (Do NOT chart on this entry -- for MONITORING) 1 each PRN DAILY PRN MC SEE COMMENTS; Start 11/02/17 at 13:45; Stop 11/04/17 at 13:44 Acetaminophen/ Hydrocodone Bitart (Lortab 5/325) 1 tab PRN Q4HRS PRN PO PAIN Last administered on 11/02/17 20:48; Start 11/02/17 at 15:45 Diphenhydramine HCl (Benadryl) 25 mg PRN Q6HRS PRN IVP ITCHING; Start at 16:15; Stop 11/02/17 at 16:31; Status DC Diphenhydramine HCl (Benadryl) 25 mg PRN Q6HRS PRN PO ITCHING; Start 11/02/17 at 16:30 Lisinopril (Prinivil) 5 mg DAILY PO Last administered on 11/03/17 09:48; Start 11/03/17 at 09:00 Zolpidem Tartrate (Ambien) 5 mg PRN QHS PRN PO INSOMNIA Last administered on 23:17; Start 11/02/17 at 17:45 Active Scripts Active Ventolin Hfa Inhaler (Albuterol Sulfate) 18 Gm Hfa.aer.ad 2 Puff INH Q4HRS Lisinopril-Hctz 10-12.5 Mg Tab (Lisinopril/Hydrochlorothiazide) 1 Each Tablet 1 Tab PO DAILY Vital Signs Vital Signs Date Time Temp Pulse Resp B/P (MAP) Pulse Ox O2 Delivery O2 Flow Rate FiO2 11/03/17 15:23 98.1 80 18 109/62 (78) 97 Room Air 98.1 11/02/17 23:55 2.0 Allergies Allergies Coded Allergies Type Severity Reaction Last Updated Verified No Known Drug Allergies 05/05/16 No Disposition/Orders: D/C to Home ANNE AMIN MD Nov 03, 2017 16:07
--- NOTE | 2017-11-03 16:13 | DISCH ---
DISCHARGE INSTRUCTIONS Condition on Discharge Condition on Discharge: Stable Activity After Discharge Activity Instructions for Disc: Resume previous activity, Activity as tolerated Bathing Instructions: Shower-keep dressing dry Lifting Instructions after Dis: No pulling or pushing Exercise Instruction after Dis: Walk 10 min, 3 x per day Driving Instructions after Dis: Do not drive today Diet after Discharge Diet after Discharge: Cardiac Checks after Discharge Checks after discharge: Check blood press - daily, Check your Temp as needed, Weigh Yourself Daily Contacting the DR. after DC Call your doctor for: If your condition worsens ANNE AMIN MD Nov 03, 2017 16:13
[2017-11-03] MEDS ORDERED: LISI-338 PO (18:15)
== END 2017-11-03 19:00 | disposition home or self-care (01) | DRG 287 ==
LOC: ER 17:23 → 5 NORTH 21:47
PROVIDERS: ADMIT Internal Medicine Hematology & Oncology; ATTEND Internal Medicine Hematology & Oncology
PROC: B2111ZZ Fluoroscopy of Multiple Coronary Arteries using Low Osmolar Contrast (ICD-10-PCS; principal; 2017-11-02)
PROC: B2151ZZ Fluoroscopy of Left Heart using Low Osmolar Contrast (ICD-10-PCS; 2017-11-02)
PROC: 4A023N7 Measurement of Cardiac Sampling and Pressure, Left Heart, Percutaneous Approach (ICD-10-PCS; 2017-11-02)
DX: I20.9 Angina pectoris, unspecified (principal); F41.9 Anxiety disorder, unspecified; I10 Essential (primary) hypertension; Z82.49 Family history of ischemic heart disease and other diseases of the circulatory system; Z90.710 Acquired absence of both cervix and uterus; M19.90 Unspecified osteoarthritis, unspecified site; Z87.01 Personal history of pneumonia (recurrent); Z90.49 Acquired absence of other specified parts of digestive tract; Z98.51 Tubal ligation status
CPT/HCPCS: 36415; 71020; 71275; 80048; 80053; 83880; 84484; 85025; 85379; 90732; 93005; 93458; 99152; 99153; C1769; C1892; J1644; J1650; J2250; J2270; J3010; Q0163; Q9967; 99285-25; J2001

== ENCOUNTER → 2018-03-07 | Outpatient (CLI) | payer OTHER | END | disposition home or self-care (01) | LOC: US 08:07 | DX: K76.0 Fatty (change of) liver, not elsewhere classified (principal); Z90.49 Acquired absence of other specified parts of digestive tract | CPT/HCPCS: 76700 ==

== ENCOUNTER 2018-04-07 11:16 | Emergency (ER) | payer OTHER ==
[2018-04-07] MEDS: LIDO:MAALOX 1:1 20 ML SINGLE DOSE. SWSW (12:15)
[2018-04-07] MEDS: fentaNYL PF VIAL 100 MCG/2 ML VIAL IV (12:15)
[2018-04-07 12:17] LABS: ADD MAN DIFF? NO
[2018-04-07 12:21] LABS: BASO % 0 % (0-3); EOS # 0.1 x10^3/uL (0.0-0.7); EOS % 1 % (0-3); HEMATOCRIT 40.8 % (36.0-47.0); HEMOGLOBIN 14.2 g/dL (12.0-15.5); LYMPH # 1.3 x10^3/uL (1.0-4.8); LYMPH % 17 % (24-48); MEAN CORPUSCULAR HEMOGLOBIN 33 pg (25-35); MEAN CORPUSCULAR HGB CONC 35 g/dL (31-37); MEAN CORPUSCULAR VOLUME 94 fL (79-100); MONO # 0.3 x10^3/uL (0.0-1.1); MONO % 5 % (0-9); NEUT # 5.7 x10^3uL (1.8-7.7); NEUT % 77 % (31-73); PLATELET COUNT 267 x10^3/uL (140-400); RED BLOOD COUNT 4.33 x10^6/uL (3.50-5.40); RED CELL DISTRIBUTION WIDTH 13.1 % (11.5-14.5); WHITE BLOOD COUNT 7.5 x10^3/uL (4.0-11.0)
[2018-04-07 12:36] LABS: ANION GAP 8 (6-14); BLOOD UREA NITROGEN 23 mg/dL (7-20); BUN/CREATININE RATIO 23 (6-20); CALCIUM 9.5 mg/dL (8.5-10.1); CARBON DIOXIDE 29 mmol/L (21-32); CHLORIDE 103 mmol/L (98-107); GFR 67.3; GLUCOSE 132 mg/dL (70-99); POTASSIUM 3.9 mmol/L (3.5-5.1); SODIUM 140 mmol/L (136-145)
[2018-04-07 12:39] LABS: TROPONINI < 0.017 ng/mL (0.000-0.055)
[2018-04-07 12:43] LABS: ALBUMIN 3.9 g/dL (3.4-5.0); ALBUMIN/GLOBULIN RATIO 1.1 (1.0-1.7); ALK PHOS 99 U/L (46-116); ALT (SGPT) 44 U/L (14-59); AST (SGOT) 38 U/L (15-37); LIPASE 120 U/L (73-393); TOTAL BILIRUBIN 0.5 mg/dL (0.2-1.0); TOTAL PROTEIN 7.5 g/dL (6.4-8.2)
[2018-04-07] MEDS ORDERED: CONTRAST GIVEN MC (13:00)
[2018-04-07] MEDS: IOHEXOL 300 MG/ML 100ML VIAL. IV (13:12)
== END 2018-04-07 14:47 | disposition home or self-care (01) ==
LOC: ER 11:16
DX: K29.70 Gastritis, unspecified, without bleeding (principal); R53.1 Weakness; I10 Essential (primary) hypertension; Z90.49 Acquired absence of other specified parts of digestive tract; Z98.51 Tubal ligation status; Z90.710 Acquired absence of both cervix and uterus
CPT/HCPCS: 36415; 74177; 80053; 83690; 84484; 85025; 93005; 96374; 99285-25; J3010; Q9967

== ENCOUNTER → 2018-07-10 | Outpatient (CLI) | payer OTHER ==
[2018-04-07 13:30] VITALS: BP 187/88
[~2018-07-10] MED LIST changes: +LISI-338 PO; +OMEP40CA5 PO; -PROM118S2 PO; +PROM118S5 PO
--- NOTE | 2018-07-10 11:14 | RAD ---
EXAM: Bilateral hips and pelvis, 5 views. HISTORY: Pain. COMPARISON: None. FINDINGS: A frontal view the pelvis and frontal and frog-leg views of both hips are obtained. There is no fracture, dislocation or subluxation. There is a tiny left os acetabulum. There is degenerative change at the lumbosacral junction. IMPRESSION: No acute osseous finding. Electronically signed by: Ashley Tobin MD (07/10/2018 11:11 AM) [facility]
== END | disposition home or self-care (01) ==
LOC: RAD 07:35
PROVIDERS: ATTEND Nurse Practitioner
DX: M47.897 Other spondylosis, lumbosacral region (principal); I10 Essential (primary) hypertension; Z90.49 Acquired absence of other specified parts of digestive tract; Z90.710 Acquired absence of both cervix and uterus; Z82.49 Family history of ischemic heart disease and other diseases of the circulatory system
CPT/HCPCS: 73521

== ENCOUNTER → 2019-01-30 | Outpatient (CLI) | payer OTHER ==
[2018-04-07 13:30] VITALS: BP 187/88
[~2019-01-30] MED LIST changes: +HYDR-2868 PO; +LOSA-73 PO; +Pantoprazole PO
--- NOTE | 2019-01-30 15:08 | RAD ---
DATE: 01/30/2019 EXAM: MAMMO SARA SCREENING BILATERAL HISTORY: Routine screening COMPARISON: 08/11/2017 This study was interpreted with the benefit of Computerized Aided Detection (CAD). Breast Density: SCATTERED The breast parenchyma shows scattered fibroglandular densities. Breast parenchyma level B. FINDINGS: 2-D and 3-D tomosynthesis imaging was performed in CC and MLO projections. The fibroglandular tissues are heterogeneous and somewhat nodular in character. No new or enlarging breast densities are seen. No suspicious microcalcifications are evident. IMPRESSION: Stable mammograms without evidence of malignancy. BI-RADS CATEGORY: 1 NEGATIVE RECOMMENDED FOLLOW-UP: 12M 12 MONTH FOLLOW-UP PQRS compliance statement: Patient information was entered into a reminder system with a target due date for the next mammogram. Mammography is a sensitive method for finding small breast cancers, but it does not detect them all and is not a substitute for careful clinical examination. A negative mammogram does not negate a clinically suspicious finding and should not result in delay in biopsying a clinically suspicious abnormality. "Our facility is accredited by the [employer] Mammography Program."
== END | disposition home or self-care (01) ==
LOC: MAMMO 12:56
PROVIDERS: ATTEND Internal Medicine
DX: Z12.31 Encounter for screening mammogram for malignant neoplasm of breast (principal)
CPT/HCPCS: 77063; 77067

== ENCOUNTER 2019-02-04 01:43 | Inpatient (IN) | payer OTHER ==
[~2019-02-04] VITALS: Ht 157.5 cm; Wt 74.4 kg
[~2019-02-04 01:43] MED LIST changes: -HYDR-2868 PO; -LOSA-73 PO; -Pantoprazole PO
[2019-02-04 03:24] LABS: BASO # 0.1 x10^3/uL (0.0-0.2); BASO % 1 % (0-3); EOS % 0 % (0-3); HEMATOCRIT 40.8 % (36.0-47.0); HEMOGLOBIN 13.7 g/dL (12.0-15.5); LYMPH # 2.2 x10^3/uL (1.0-4.8); LYMPH % 24 % (24-48); MEAN CORPUSCULAR HEMOGLOBIN 32 pg (25-35); MEAN CORPUSCULAR HGB CONC 34 g/dL (31-37); MEAN CORPUSCULAR VOLUME 94 fL (79-100); MONO # 0.5 x10^3/uL (0.0-1.1); MONO % 5 % (0-9); NEUT # 6.2 x10^3uL (1.8-7.7); NEUT % 70 % (31-73); PLATELET COUNT 269 x10^3/uL (140-400); RED BLOOD COUNT 4.33 x10^6/uL (3.50-5.40); RED CELL DISTRIBUTION WIDTH 12.9 % (11.5-14.5)
[2019-02-04] MEDS ORDERED: ASPIRIN CHEWABLE 81 MG TABLET. PO ONE (03:30)
[2019-02-04 03:38] LABS: CALCIUM 9.4 mg/dL (8.5-10.1); CREATININE 0.7 mg/dL (0.6-1.0); GFR 101.3; POTASSIUM 3.7 mmol/L (3.5-5.1)
[2019-02-04 03:43] LABS: ALBUMIN 3.7 g/dL (3.4-5.0); ALBUMIN/GLOBULIN RATIO 1.1 (1.0-1.7); MAGNESIUM 2.2 mg/dL (1.8-2.4); TOTAL BILIRUBIN 0.3 mg/dL (0.2-1.0); TOTAL PROTEIN 7.2 g/dL (6.4-8.2)
[2019-02-04 03:43] LABS: INFLUENZA A PATIENT NEGATIVE (NEGATIVE); INFLUENZA B PATIENT NEGATIVE (NEGATIVE)
[2019-02-04 03:57] LABS: PROTHROMBIN TIME PATIENT 13.7 SEC (11.7-14.0)
[2019-02-04] MEDS ORDERED: HYOSCYAMINE 0.125 MG TAB.RAPDIS PO ONE (04:00)
--- NOTE | 2019-02-04 04:35 | PHYS DOC ---
Past Medical History Past Medical History: Diverticulitis, Hypertension, Pneumonia, Other Additional Past Medical Histor: "irregular heart beat" Past Surgical History: Cholecystectomy, Colectomy, Hysterectomy, Tubal ligation , Other Additional Past Surgical Histo: fatty tumor removed Alcohol Use: Rarely Drug Use: None Adult General Chief Complaint Chief Complaint: CHEST PAIN HPI HPI Patient is a 68 year old female who presents with chest pain that started shortly prior to arrival. Uncertain as to whether there is an exertional component. 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 Describes the discomfort as both sharp as well as a heaviness. No radiation of the discomfort some nausea, no vomiting, no diaphoresis. No cough or fever. She is also been having abdominal pain that's diffuse for the past several days. She was paced get laboratory testing performed at her doctor's request but has not yet obtained this. She has a history of previous hemicolectomy due to diverticular disease. She has been having diarrhea. No blood in the stool.[] Review of Systems Review of Systems Constitutional: Denies fever or chills [] Eyes: Denies change in visual acuity, redness, or eye pain [] HENT: Denies nasal congestion or sore throat [] Respiratory: Denies cough or shortness of breath [] Cardiovascular: No additional information not addressed in HPI [] GI: See history of present illness[] : Denies dysuria or hematuria [] Musculoskeletal: Denies back pain or joint pain [] Integument: Denies rash or skin lesions [] Neurologic: Denies headache, focal weakness or sensory changes [] Endocrine: Denies polyuria or polydipsia [] All other systems were reviewed and found to be within normal limits, except as documented in this note. Current Medications Current Medications Current Medications Medications (Trade) Dose Ordered Sig/Marnie Start Time Stop Time Status Last Admin Dose Admin Aspirin (Children'S Aspirin) 324 mg 1X ONCE 02/04/19 03:30 02/04/19 03:31 DC 02/04/19 03:24 324 MG Hyoscyamine (Anaspaz) 0.125 mg ONCE ONCE 02/04/19 04:00 02/04/19 04:01 DC Allergies Allergies Allergies Coded Allergies Type Severity Reaction Last Updated Verified No Known Drug Allergies 05/05/16 No Physical Exam Physical Exam Constitutional: Well developed, well nourished, no acute distress, non-toxic appearance. [] HENT: Normocephalic, atraumatic, bilateral external ears normal, oropharynx moist, no oral exudates, nose normal. [] Eyes: PERRLA, EOMI, conjunctiva normal, no discharge. [] Neck: Normal range of motion, no tenderness, supple, no stridor. [] Cardiovascular:Heart rate regular rhythm, no murmur [] Lungs & Thorax: Bilateral breath sounds clear to auscultation [] Abdomen: Bowel sounds normal, soft, diffuse tenderness, no rebound, no guarding , no rigidity, no masses, no pulsatile masses. [] Skin: Warm, dry, no erythema, no rash. [] Back: No tenderness, no CVA tenderness. [] Extremities: No tenderness, no cyanosis, no clubbing, ROM intact, no edema. [] Neurologic: Alert and oriented X 3, normal motor function, normal sensory function, no focal deficits noted. [] Psychologic: Affect normal, judgement normal, mood normal. [] Current Patient Data Vital Signs Vital Signs Date Time Temp Pulse Resp B/P (MAP) Pulse Ox O2 Delivery O2 Flow Rate FiO2 02/04/19 02:20 97.7 74 21 161/75 (103) 99 Room Air 97.7 Lab Values Laboratory Tests Test 02/04/19 03:12 02/04/19 03:14 02/04/19 03:18 White Blood Count 9.0 x10^3/uL (4.0-11.0) Red Blood Count 4.33 x10^6/uL (3.50-5.40) Hemoglobin 13.7 g/dL (12.0-15.5) Hematocrit 40.8 % (36.0-47.0) Mean Corpuscular Volume 94 fL (79-100) Mean Corpuscular Hemoglobin 32 pg (25-35) Mean Corpuscular Hemoglobin Concent 34 g/dL (31-37) Red Cell Distribution Width 12.9 % (11.5-14.5) Platelet Count 269 x10^3/uL (140-400) Neutrophils (%) (Auto) 70 % (31-73) Lymphocytes (%) (Auto) 24 % (24-48) Monocytes (%) (Auto) 5 % (0-9) Eosinophils (%) (Auto) 0 % (0-3) Basophils (%) (Auto) 1 % (0-3) Neutrophils # (Auto) 6.2 x10^3uL (1.8-7.7) Lymphocytes # (Auto) 2.2 x10^3/uL (1.0-4.8) Monocytes # (Auto) 0.5 x10^3/uL (0.0-1.1) Eosinophils # (Auto) 0.0 x10^3/uL (0.0-0.7) Basophils # (Auto) 0.1 x10^3/uL (0.0-0.2) Prothrombin Time 13.7 SEC (11.7-14.0) Prothrombin Time INR 1.1 (0.8-1.1) Sodium Level 144 mmol/L (136-145) Potassium Level 3.7 mmol/L (3.5-5.1) Chloride Level 105 mmol/L (98-107) Carbon Dioxide Level 30 mmol/L (21-32) Anion Gap 9 (6-14) Blood Urea Nitrogen 18 mg/dL (7-20) Creatinine 0.7 mg/dL (0.6-1.0) Estimated GFR (Cockcroft-Gault) 101.3 BUN/Creatinine Ratio 26 (6-20) H Glucose Level 126 mg/dL (70-99) H Calcium Level 9.4 mg/dL (8.5-10.1) Magnesium Level 2.2 mg/dL (1.8-2.4) Total Bilirubin 0.3 mg/dL (0.2-1.0) Aspartate Amino Transferase (AST) 27 U/L (15-37) Alanine Aminotransferase (ALT) 50 U/L (14-59) Alkaline Phosphatase 103 U/L (46-116) Troponin I Quantitative < 0.017 ng/mL (0.000-0.055) XT-Biq-Y-Type Natriuretic Peptide 23 pg/mL (0-124) Total Protein 7.2 g/dL (6.4-8.2) Albumin 3.7 g/dL (3.4-5.0) Albumin/Globulin Ratio 1.1 (1.0-1.7) Lipase 405 U/L (73-393) H Influenza Type A Antigen Negative (NEGATIVE) Influenza Type B Antigen Negative (NEGATIVE) POC Troponin I 0.00 ng/ml (<0.08) Laboratory Tests 02/04/19 03:12 Laboratory Tests 02/04/19 03:12 EKG EKG EKG shows sinus rhythm, 63 bpm, leftward axis, QTC of 408 ms, interpreted by me at 0157.[] Radiology/Procedures Radiology/Procedures Chest x-ray shows no infiltrate, no effusion, no pneumothorax[] Course & Med Decision Making Course & Med Decision Making Pertinent Labs and Imaging studies reviewed. (See chart for details) ED course: Patient arrived, was placed in bed, and tolerated exam well. She was given aspirin which she tolerated. Due to the slight elevation the lipase, CT scan was ordered that is pending at the time of this dictation. Consultation was made with her primary care team for admission due to the chest pain. Patient was admitted in improved condition.[] Dragon Disclaimer Dragon Disclaimer This electronic medical record was generated, in whole or in part, using a voice recognition dictation system. Departure Departure Impression: Primary Impression: Chest pain Additional Impression: Abdominal pain Disposition: ADMITTED INPATIENT Admitting Physician: Shannan Patel Condition: IMPROVED Referrals: SHANNAN PATEL MD (PCP) Problem Qualifiers SOREN PATEL DO Feb 04, 2019 04:35
[2019-02-04] MEDS ORDERED: NITROGLYCERIN SUBLINGUAL 0.4 MG BOTTLE OF 25. SL PRN (05:00)
[2019-02-04] MEDS ORDERED: ACETAMINOPHEN 325 MG TABLET. PO PRN (05:00)
[2019-02-04] MEDS ORDERED: IOHEXOL 300 MG/ML 100ML VIAL. IV ONE (05:00)
[2019-02-04] MEDS ORDERED: CONTRAST GIVEN. MC PRN (05:00)
[2019-02-04] MEDS ORDERED: IV NORMAL SALINE 1000ML BAG 1,000 ML IV SCH (05:00)
[2019-02-04] MEDS ORDERED: ONDANSETRON PF 4 MG/2 ML VIAL. IV PRN (05:00)
[2019-02-04 06:12] VITALS: BP 189/70
--- NOTE | 2019-02-04 06:19 | RAD ---
INDICATION: upper abdominal pain, elevated lipase, OMNI 300, 75ml COMPARISON: March 2018 TECHNIQUE: Axial CT images obtained through the abdomen and pelvis with contrast. One or more of the following individualized dose reduction techniques were utilized for this examination: 1. Automated exposure control; 2. Adjustment of the mA and/or kV according to patient size; 3. Use of iterative reconstruction technique. FINDINGS: Calcific atherosclerosis. Liver is mildly low attenuation. Postcholecystectomy changes. No peripancreatic fluid collection. Spleen is unremarkable. Mild prominence bilateral extrarenal pelvis. Urinary bladder is partially distended. Postoperative changes to the right side of the colon with suture line. No dilated loops of bowel to suggest obstruction. Degenerative changes throughout the spine with multilevel central canal and neural foraminal stenosis. IMPRESSION: 1. No evidence of bowel obstruction. 2. No evidence of peripancreatic fluid collection. 3. Degenerative changes the spine with multilevel central canal and neural foraminal stenosis. 4. Prominence of the bilateral extrarenal pelvis. Electronically signed by: Saul Ashby MD (02/04/2019 6:17 AM) [facility]
--- NOTE | 2019-02-04 07:58 | RAD ---
EXAM: CHEST 1 VIEW History: Chest pain COMPARISON: 01/01/2017 TECHNIQUE: Single portable radiograph of the chest FINDINGS: The cardiac silhouette is unremarkable. The lungs are clear bilaterally. The costophrenic sulci are clear and well demarcated. IMPRESSION: No radiographic evidence of an acute cardiopulmonary process. Electronically signed by: Bjorn Parra MD (02/04/2019 7:55 AM) [facility]
[2019-02-04] MEDS ORDERED: hydroCHLOROthiazide 12.5 MG CAPSULE PO SCH (09:00)
[2019-02-04] MEDS ORDERED: LISINOPRIL 10 MG TABLET PO SCH (09:00)
[2019-02-04] MEDS ORDERED: ALBUTEROL SULFATE 2.5 MG/3 ML NEBU. NEB PRN (09:15)
[2019-02-04] MEDS: PANTOPRAZOLE 40 MG TABLET.DR. PO SCH (09:41)
[2019-02-04] MEDS: LOSARTAN POTASSIUM 50 MG TABLET. PO SCH (09:42)
[2019-02-04] MEDS: MORPHINE SULFATE 2 MG/ML VIAL. IV PRN ×2 (09:47→21:21)
--- NOTE | 2019-02-04 09:49 | PDOC ---
Provider Note Provider Note Patient seen. History and Physical dictated. See dictation #[id number] PRESLEY CHRISTENSEN MD Feb 04, 2019 09:49
--- NOTE | 2019-02-04 10:16 | CONS ---
DATE OF CONSULTATION: 02/04/2019 REASON FOR CONSULTATION: Chest discomfort. HISTORY OF PRESENT ILLNESS: The patient is a 68-year-old woman, coming into the ER with symptoms suggestive of abdominal pain and diarrhea and nausea. In addition to this, she had some chest discomfort. Cardiology has been asked to evaluate her for this. 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 In this setting, she also had some sudden onset of chest discomfort while she was having this nausea. She denies any preceding dyspnea on exertion, angina, orthopnea or PND. She has never had any prior cardiac interventions. PAST MEDICAL HISTORY: 1. Hypertension. The patient did have a cardiac catheterization, which was unremarkable in 2017. 2. Hemicolectomy for a presumed tumor. 3. History of an irregular heartbeat, but no obvious atrial fibrillation. 4. Cholecystectomy and tubal ligation. 5. Diverticulitis. SOCIAL HISTORY: The patient denies any alcohol, tobacco or illicit drug use. ALLERGIES: No known drug allergies. FAMILY HISTORY: Noncontributory. REVIEW OF SYSTEMS: Negative unless otherwise mentioned above in HPI. REVIEW OF SYSTEMS: Now. PHYSICAL EXAMINATION: VITAL SIGNS: Afebrile, 69, 18, 189/70, 99% on room air. GENERAL: She is alert and oriented, in no acute distress. HEAD AND NECK: Unremarkable. HEART: Regular rate and rhythm. LUNGS: Clear to auscultation. ABDOMEN: Soft, mildly tender to palpation at the lower quadrant. EXTREMITIES: No clubbing, cyanosis or edema. NEUROLOGIC: No focal deficits. MUSCULOSKELETAL: No trauma. Blood pressures over the last 12 hours have been elevated over systolic ranging from 160-190. LABORATORY DATA: Hemoglobin 13.7, platelets 269, creatinine 0.7. Cardiac enzymes negative x 1. BNP within normal limits. Lipase elevated at 405. CT of the abdomen and pelvis does not reveal any acute pathology and the chest x-ray is grossly unremarkable. EKG currently pending, but telemetry does not reveal any significant pathology. IMPRESSION: 1. Noncardiac chest pain. 2. Abdominal discomfort, cannot rule out diverticulitis, although no CT evidence of such. 3. Hypertension, uncontrolled. RECOMMENDATIONS: 1. After the patient received her home losartan dose, she was better controlled in her blood pressure today. If she has elevated blood pressures later on, could consider increasing her losartan dose to 100 mg daily. 2. No further cardiovascular testing necessary at this time as the patient had a cardiac catheterization less than 2 years ago without any significant coronary artery disease. Thank you for this consultation. ANNA YOUNG MD DR: DEJUAN/aditya JOB#: [id number] / [id number]
--- NOTE | 2019-02-04 10:32 | HP ---
ADMIT DATE: 02/04/2019 ADMITTING PHYSICIAN: Dr. Patel. 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 Symptoms started yesterday evening. She had fish from [employer] yesterday evening. Prior to that, she was not having any problems. She also then started having lower chest and upper abdominal pain and pain was severe and she broke out into a cold sweat and she almost passed out, so she came to the Emergency Room. She had a similar episode of abdominal and chest pain and near syncopal episode in 10/2017 where she was admitted here and at that time, cardiac catheterization was negative. Family members are not ill and she does not have any cold, cough, congestion, bleeding, leg pain or weakness. Other systems reviewed and are negative. SYSTEMS REVIEW: As noted in the history of present illness. The patient was admitted to the hospital because of the chest pains. In the Emergency Room, WBC count was 9, hemoglobin was 13.7. Sodium was 144, potassium 3.7, glucose 126, BUN 18, creatinine 0.7. Troponin levels were negative. Albumin 3.7, total protein 7.2, mild elevation of lipase at 405. WBC count was 9, hemoglobin 13.7. Influenza A and B were negative. Chest x-ray was negative for any acute infiltrates. CT scan of abdomen and pelvis also was negative for any peripancreatic fluid collection or obstruction. Degenerative changes in the spine with multilevel central canal and neural foraminal stenosis. The patient also has bilateral extrarenal pelvis. Because of her chest pain and abdominal pain, the patient was admitted for further evaluation and management. PAST MEDICAL HISTORY: As noted earlier, the patient was last admitted in 10/2017 for near syncope, chest pain and abdominal pain. At that time, cardiac catheterization was negative. She is known to have history of diverticulitis, hypertension, and pneumonia. She likely also has gastroesophageal reflux disease because she has had her throat stretched 2 years ago. PAST SURGICAL HISTORY: The patient has cholecystectomy, hysterectomy, tubal ligation, hemicolectomy, also had fatty tumor removed. She had cardiac catheterization in 10/2017. FAMILY HISTORY: Brother and father had congestive heart failure. Sister had pulmonary embolism. SOCIAL HISTORY: No history of smoking, alcoholism or drug abuse. ALLERGIES: None known any. MEDICATIONS: The patient is on losartan 50 mg daily. She takes ibuprofen as needed. OBJECTIVE: VITAL SIGNS: Stable. Blood pressure 168/79, pulse 64 per minute, temperature 97.9, respirations 18 per minute. GENERAL: The patient is an elderly -[place] female who is alert, oriented and not in acute distress. EYES: Pupils equal, reacting to light. Conjunctivae pale. Sclerae muddy. HEENT: Unremarkable except for minimal congestion of throat. NECK: Supple. JVP normal. No thyromegaly. Trachea midline. SKIN: Warm and dry. There is no cyanosis. LUNGS: Clear. CARDIOVASCULAR: S1, S2 regular. CHEST: Nontender. ABDOMEN: Soft, minimal soreness in the lower abdomen bilaterally. No guarding, no rigidity. No epigastric tenderness. EXTREMITIES: No edema, no cyanosis, no calf tenderness. CENTRAL NERVOUS SYSTEM: Alert and oriented. LABORATORY FINDINGS: As noted earlier. IMPRESSION: 1. Chest pain, atypical. 2. Acute gastroenteritis, possibly viral. 3. Gastroesophageal reflux disease, history of dilatation of the esophageal stricture. 4. Hypertension. 5. Osteoarthritis. PLAN: Hypertension is not controlled, I will restart her losartan 50 mg daily. Antireflux measures extensively discussed with the patient. Start her on Prilosec 20 mg daily in a.m. I reviewed and reconciled home medications. Discussed with staff. Consult Dr. Shahid for cardiology evaluation and management, and Dr. Yoel Fay for GI evaluation and management. We will order serial EKG and enzymes. Monitor blood pressure. The patient is currently n.p.o., but hopefully later this afternoon, we can advance her diet and by evening put her on soft diet and if stable, consider discharging her tomorrow morning. For details, please refer the orders. PRESLEY CHRISTENSEN MD DR: TESS/aditya JOB#: [id number] / [id number] SHANNAN Silva MD
[2019-02-04 11:00] VITALS: BP 133/50
[2019-02-04] MEDS ORDERED: NON FORMULARY ITEM (Albuterol Sulfate (Ventolin Hfa Inhaler) 2 PUFF) INH SCH (12:00)
--- NOTE | 2019-02-04 12:48 | PDOC2 ---
GI CONSULT Reason For Consult: Abd pain HPI: HPI: 68 year old female who presents with chest pain that started shortly prior to arrival. Uncertain as to whether there is an exertional component. Patient works as a psychiatric nursing assistant in the hospital. Describes the discomfort as both sharp as well as a heaviness. No radiation of the discomfort some nausea, no vomiting , no diaphoresis. No cough or fever. She is also been having abdominal pain that 's diffuse for the past several days. She was paced get laboratory testing performed at her doctor's request but has not yet obtained this. She has a history of previous hemicolectomy due to diverticular disease. She has been having diarrhea since her hemicolectomy without any changes at this time. She denies recent antibiotic use. Denies NSAIDs. No blood in the stool.[] Lipase was noted to be [address] abd. Currently, she denies abd pain and is eating a full liquid diet. She is planning on having outpatient EGD/Colon done soon PMH: PMH: Past Medical History Past Medical History: Diverticulitis, Hypertension, Pneumonia, Other Additional Past Medical Histor: "irregular heart beat" Past Surgical History: Cholecystectomy, Colectomy, Hysterectomy, Tubal ligation , Other Additional Past Surgical Histo: fatty tumor removed Alcohol Use: Rarely Drug Use: None All: NKDA Meds: MAR reviewed Social History: Smoke: No ALCOHOL: rare Drugs: None ROS: Review of Systems Review of Systems Constitutional: Denies fever or chills [] Eyes: Denies change in visual acuity, redness, or eye pain [] HENT: Denies nasal congestion or sore throat [] Respiratory: Denies cough or shortness of breath [] Cardiovascular: No additional information not addressed in HPI [] GI: See history of present illness[] : Denies dysuria or hematuria [] Musculoskeletal: Denies back pain or joint pain [] Integument: Denies rash or skin lesions [] Neurologic: Denies headache, focal weakness or sensory changes [] Endocrine: Denies polyuria or polydipsia [] VItals: Vitals: Vital Signs Date Time Temp Pulse Resp B/P (MAP) Pulse Ox O2 Delivery O2 Flow Rate FiO2 02/04/19 11:00 98.1 76 17 133/50 (77) 98 Room Air 98.1 Labs: Labs: Laboratory Tests Test 02/04/19 03:12 02/04/19 03:14 02/04/19 03:18 White Blood Count 9.0 x10^3/uL (4.0-11.0) Red Blood Count 4.33 x10^6/uL (3.50-5.40) Hemoglobin 13.7 g/dL (12.0-15.5) Hematocrit 40.8 % (36.0-47.0) Mean Corpuscular Volume 94 fL (79-100) Mean Corpuscular Hemoglobin 32 pg (25-35) Mean Corpuscular Hemoglobin Concent 34 g/dL (31-37) Red Cell Distribution Width 12.9 % (11.5-14.5) Platelet Count 269 x10^3/uL (140-400) Neutrophils (%) (Auto) 70 % (31-73) Lymphocytes (%) (Auto) 24 % (24-48) Monocytes (%) (Auto) 5 % (0-9) Eosinophils (%) (Auto) 0 % (0-3) Basophils (%) (Auto) 1 % (0-3) Neutrophils # (Auto) 6.2 x10^3uL (1.8-7.7) Lymphocytes # (Auto) 2.2 x10^3/uL (1.0-4.8) Monocytes # (Auto) 0.5 x10^3/uL (0.0-1.1) Eosinophils # (Auto) 0.0 x10^3/uL (0.0-0.7) Basophils # (Auto) 0.1 x10^3/uL (0.0-0.2) Prothrombin Time 13.7 SEC (11.7-14.0) Prothromb Time International Ratio 1.1 (0.8-1.1) Sodium Level 144 mmol/L (136-145) Potassium Level 3.7 mmol/L (3.5-5.1) Chloride Level 105 mmol/L (98-107) Carbon Dioxide Level 30 mmol/L (21-32) Anion Gap 9 (6-14) Blood Urea Nitrogen 18 mg/dL (7-20) Creatinine 0.7 mg/dL (0.6-1.0) Estimated GFR (Cockcroft-Gault) 101.3 BUN/Creatinine Ratio 26 (6-20) Glucose Level 126 mg/dL (70-99) Calcium Level 9.4 mg/dL (8.5-10.1) Magnesium Level 2.2 mg/dL (1.8-2.4) Total Bilirubin 0.3 mg/dL (0.2-1.0) Aspartate Amino Transf (AST/SGOT) 27 U/L (15-37) Alanine Aminotransferase (ALT/SGPT) 50 U/L (14-59) Alkaline Phosphatase 103 U/L (46-116) Troponin I Quantitative < 0.017 ng/mL (0.000-0.055) UY-Jxt-I-Type Natriuretic Peptide 23 pg/mL (0-124) Total Protein 7.2 g/dL (6.4-8.2) Albumin 3.7 g/dL (3.4-5.0) Albumin/Globulin Ratio 1.1 (1.0-1.7) Lipase 405 U/L (73-393) Influenza Type A Antigen Negative (NEGATIVE) Influenza Type B Antigen Negative (NEGATIVE) Bedside Troponin I 0.00 ng/ml (<0.08) Imaging: Imaging: NDICATION: upper abdominal pain, elevated lipase, OMNI 300, 75ml COMPARISON: March 2018 TECHNIQUE: Axial CT images obtained through the abdomen and pelvis with contrast. One or more of the following individualized dose reduction techniques were utilized for this examination: 1. Automated exposure control; 2. Adjustment of the mA and/or kV according to patient size; 3. Use of iterative reconstruction technique. FINDINGS: Calcific atherosclerosis. Liver is mildly low attenuation. Postcholecystectomy changes. No peripancreatic fluid collection. Spleen is unremarkable. Mild prominence bilateral extrarenal pelvis. Urinary bladder is partially distended. Postoperative changes to the right side of the colon with suture line. No dilated loops of bowel to suggest obstruction. Degenerative changes throughout the spine with multilevel central canal and neural foraminal stenosis. IMPRESSION: 1. No evidence of bowel obstruction. 2. No evidence of peripancreatic fluid collection. 3. Degenerative changes the spine with multilevel central canal and neural foraminal stenosis. 4. Prominence of the bilateral extrarenal pelvis. Electronically signed by: Angel Ashby MD (02/04/2019 6:17 AM) [facility] DICTATED and SIGNED BY: ANGLE ASHBY MD DATE: 02/04/19616 PE: Physical Exam Physical Exam Constitutional: Well developed, well nourished, no acute distress, non-toxic appearance. [] HENT: Normocephalic, atraumatic, bilateral external ears normal, oropharynx moist, no oral exudates, nose normal. [] Eyes: PERRLA, EOMI, conjunctiva normal, no discharge. [] Neck: Normal range of motion, no tenderness, supple, no stridor. [] Cardiovascular:Heart rate regular rhythm, no murmur [] Lungs & Thorax: Bilateral breath sounds clear to auscultation [] Abdomen: Bowel sounds normal, soft, diffuse tenderness, no rebound, no guarding , no rigidity, no masses, no pulsatile masses. [] Skin: Warm, dry, no erythema, no rash. [] Back: No tenderness, no CVA tenderness. [] Extremities: No tenderness, no cyanosis, no clubbing, ROM intact, no edema. [] Neurologic: Alert and oriented X 3, normal motor function, normal sensory function, no focal deficits noted. [] Psychologic: Affect normal, judgement normal, mood normal. [] A/P: A/P: A&P) 1) Diffuse abd pain: Resolved. CT unrevealing. Favor outpatient EGD/Colon 2) Elevated lipase. She denies EtOH. s/p L/c for gallstones. Consider abd sono if sx worsen 3) Diarrhea: chronic after hemicolectomy given resolution of sx, okay for d/c from GI standpoint JAQUELIN MARTINEZ MD Feb 04, 2019 12:48
[2019-02-04 15:00] VITALS: BP 112/52
[2019-02-04] MEDS ORDERED: LOSA-73 PO (15:35)
[2019-02-04 19:05] VITALS: BP 150/68
[2019-02-04] MEDS ORDERED: diphenhydrAMINE HCL 25 MG CAPSULE PO PRN (23:45)
[2019-02-04 23:49] VITALS: BP 134/70
[2019-02-05 03:40] VITALS: BP 146/62
[2019-02-05 04:20] LABS: BASO % 0 % (0-3); EOS # 0.1 x10^3/uL (0.0-0.7); EOS % 3 % (0-3); HEMATOCRIT 37.4 % (36.0-47.0); HEMOGLOBIN 12.7 g/dL (12.0-15.5); LYMPH # 2.4 x10^3/uL (1.0-4.8); LYMPH % 50 % (24-48); MEAN CORPUSCULAR HEMOGLOBIN 32 pg (25-35); MEAN CORPUSCULAR HGB CONC 34 g/dL (31-37); MEAN CORPUSCULAR VOLUME 95 fL (79-100); MONO # 0.4 x10^3/uL (0.0-1.1); MONO % 8 % (0-9); NEUT # 1.9 x10^3uL (1.8-7.7); NEUT % 39 % (31-73); PLATELET COUNT 245 x10^3/uL (140-400); RED BLOOD COUNT 3.96 x10^6/uL (3.50-5.40); RED CELL DISTRIBUTION WIDTH 12.9 % (11.5-14.5); WHITE BLOOD COUNT 4.7 x10^3/uL (4.0-11.0)
[2019-02-05 04:39] LABS: CREATININE 0.8 mg/dL (0.6-1.0); GFR 86.8; POTASSIUM 3.5 mmol/L (3.5-5.1)
[2019-02-05 04:50] LABS: CHOLESTEROL/HDL RATIO 3.1
[2019-02-05 07:00] VITALS: BP 135/77
--- NOTE | 2019-02-05 07:08 | EKG ---
[facility] [address] [place] [address] Test Date: 2019-02-04 Test Time: 01:55:13 Pat Name: NASIR MERCADO Department: Room: 201 1 Gender: F Warehouse Specialist: : 1950 Requested By: SOREN PATEL Order Number: [id number] Reading MD: Julio César De Oliveira MD Measurements Intervals [place] Rate: 63 P: 59 FL: 184 QRS: -16 QRSD: 78 T: 10 QT: 396 QTc: 408 Interpretive Statements SINUS RHYTHM Electronically Signed On 02-08-2019 15:05:08 CDT by Julio César De Oliveira MD
[2019-02-05] MEDS: PANTOPRAZOLE 40 MG TABLET.DR. PO SCH (08:34)
[2019-02-05] MEDS: LOSARTAN POTASSIUM 50 MG TABLET. PO SCH (08:34)
--- NOTE | 2019-02-05 09:52 | PDOC ---
PROGRESS NOTES Subjective Subjective chest pain free Objective Objective Vital Signs Date Time Temp Pulse Resp B/P (MAP) Pulse Ox O2 Delivery O2 Flow Rate FiO2 02/05/19 08:34 54 135/77 02/05/19 07:00 98.2 18 98 Room Air 98.2 Intake and Output 02/05/19 06:59 Intake Total 1400 ml Balance 1400 ml Intake Oral 1400 ml # Voids 1 Physical Exam Abdomen: Normal bowel sounds, Soft Heart: Regular rate, Normal S1 Extremities: No clubbing General: Alert, Oriented X3 Lungs: Clear to auscultation MUSCULOSKELETAL: No deformity Neck: Supple Neuro: Normal speech Psych/Mental Status: Mental status NL Skin: No breakdown Assessment Assessment IMPRESSION: 1. Chest pain, atypical. 2. Acute gastroenteritis, possibly viral. 3. Gastroesophageal reflux disease, history of dilatation of the esophageal stricture. 4. Hypertension. 5. Osteoarthritis. PLAN: viral gastroenteritis vs pancreatitis troponin neg. ct scan abd -ve f/u amylase+lipase today appreciate gi and cardiology consult Hypertension is not controlled, I will restart her losartan 50 mg daily. Antireflux measures extensively discussed with the patient. Start her on Prilosec 20 mg daily in a.m. I reviewed and reconciled home medications. Discussed with staff. Consult Dr. Shahid for cardiology evaluation and management, and Dr. Yoel Fay for GI evaluation and management. We will order serial EKG and enzymes. Monitor blood pressure. The patient is currently n.p.o., but hopefully later this afternoon, we can advance her diet and by evening put her on soft diet and if stable, consider discharging her tomorrow morning. For details, please refer the orders. Comment Review of Relevant I have reviewed the following items matty (where applicable) has been applied. Labs Laboratory Tests Test 02/04/19 12:13 02/04/19 18:05 02/05/19 03:50 Troponin I Quantitative < 0.017 ng/mL (0.000-0.055) < 0.017 ng/mL (0.000-0.055) White Blood Count 4.7 x10^3/uL (4.0-11.0) Red Blood Count 3.96 x10^6/uL (3.50-5.40) Hemoglobin 12.7 g/dL (12.0-15.5) Hematocrit 37.4 % (36.0-47.0) Mean Corpuscular Volume 95 fL (79-100) Mean Corpuscular Hemoglobin 32 pg (25-35) Mean Corpuscular Hemoglobin Concent 34 g/dL (31-37) Red Cell Distribution Width 12.9 % (11.5-14.5) Platelet Count 245 x10^3/uL (140-400) Neutrophils (%) (Auto) 39 % (31-73) Lymphocytes (%) (Auto) 50 % (24-48) Monocytes (%) (Auto) 8 % (0-9) Eosinophils (%) (Auto) 3 % (0-3) Basophils (%) (Auto) 0 % (0-3) Neutrophils # (Auto) 1.9 x10^3uL (1.8-7.7) Lymphocytes # (Auto) 2.4 x10^3/uL (1.0-4.8) Monocytes # (Auto) 0.4 x10^3/uL (0.0-1.1) Eosinophils # (Auto) 0.1 x10^3/uL (0.0-0.7) Basophils # (Auto) 0.0 x10^3/uL (0.0-0.2) Sodium Level 142 mmol/L (136-145) Potassium Level 3.5 mmol/L (3.5-5.1) Chloride Level 107 mmol/L (98-107) Carbon Dioxide Level 28 mmol/L (21-32) Anion Gap 7 (6-14) Blood Urea Nitrogen 10 mg/dL (7-20) Creatinine 0.8 mg/dL (0.6-1.0) Estimated GFR (Cockcroft-Gault) 86.8 Glucose Level 102 mg/dL (70-99) Calcium Level 9.0 mg/dL (8.5-10.1) Triglycerides Level 82 mg/dL (0-150) Cholesterol Level 160 mg/dL (0-200) LDL Cholesterol, Calculated 93 mg/dL (0-100) VLDL Cholesterol, Calculated 16 mg/dL (0-40) Non-HDL Cholesterol Calculated 109 mg/dL (0-129) HDL Cholesterol 51 mg/dL (40-60) Cholesterol/HDL Ratio 3.1 Medications Current Medications Diphenhydramine HCl (Benadryl) 25 mg PRN Q6HRS PRN PO ITCHING Last administered on 02/05/19at 00:14; Start 02/04/19 at 23:45 Non-Formulary Medication (Albuterol Sulfate (Ventolin Hfa Inhaler)) 2 puff Q4HRS INH ; Start 02/04/19 at 12:00; Status UNV Vitals/I & O Vital Sign - Last 24 Hours 02/04/19 02/04/19 02/04/19 02/04/19 10:14 11:00 15:00 19:05 Temp 98.1 98.1 98.3 98.1 98.1 98.3 Pulse 76 67 54 Resp B/P (MAP) 133/50 (77) 112/52 (72) 150/68 (95) Pulse Ox 98 97 99 O2 Delivery Room Air Room Air Room Air Room Air 02/04/19 02/04/19 02/04/19 02/04/19 20:00 21:21 21:51 23:49 Temp 98.0 98.0 Pulse 56 Resp 17 B/P (MAP) 134/70 (91) Pulse Ox 99 97 97 O2 Delivery Room Air Room Air Room Air Room Air 02/05/19 02/05/19 02/05/19 03:40 07:00 08:34 Temp 98.1 98.2 98.1 98.2 Pulse 56 54 54 Resp 16 18 B/P (MAP) 146/62 (90) 135/77 (96) 135/77 Pulse Ox 99 98 O2 Delivery Room Air Room Air Intake and Output 02/04/19 02/04/19 02/05/19 14:59 22:59 06:59 Intake Total 1100 ml 300 ml Balance 1100 ml 300 ml SHANNAN BOLDEN MD Feb 05, 2019 09:52
[2019-02-05 10:21] LABS: AMYLASE 83 U/L (25-115); LIPASE 220 U/L (73-393)
[2019-02-05 11:00] VITALS: BP 140/62
--- NOTE | 2019-02-05 11:16 | EKG ---
[facility] [address] [place] [address] Test Date: 2019-02-05 Test Time: 09:11:23 Pat Name: NASIR MERCADO Department: Room: 201 1 Gender: Coding Compliance Specialist: : 1950 Requested By: SOREN PATEL Order Number: [id number] Reading MD: Julio César De Oliveira MD Measurements Intervals [place] Rate: P: [place]: QRS: QRSD: T: QT: QTc: Interpretive Statements SR MISSING LEADS Electronically Signed On 02-09-2019 13:10:42 CDT by Julio César De Oliveira MD
--- NOTE | 2019-02-05 11:19 | NUR ---
SS following for discharge planning. SS reviewed pt chart and met with pt's RN. Pt is from home with spouse and is currently on room air. No discharge needs noted at this time. SS will continue to follow for pending discharge needs.
--- NOTE | 2019-02-05 14:24 | PDOC ---
Subjective: Subjective: Feeling better today. Says Dr. Patel would like her to have an EGD while she' s here and she agrees. Intermittent upper and middle abd pain for awhile, wonders if she has GERD. Objective: Vital Signs: Vital Signs Date Time Temp Pulse Resp B/P (MAP) Pulse Ox O2 Delivery O2 Flow Rate FiO2 02/05/19 11:00 98.5 56 18 140/62 (88) 98 Room Air 98.5 PE: GEN: NAD LUNGS: CTAB HEART: RRR ABD: NABS, S/ND/NT NEURO/PSYCH: A & O 3 A/P: Intermittent abd pain Mildly elevated lipase - s/p musa, CT unrevealing, unclear significance S/p hemicolectomy -- Will plan for EGD tomorrow. KIAN BONILLA Feb 05, 2019 14:24
[2019-02-05 15:00] VITALS: BP 128/60
[2019-02-05 19:00] VITALS: BP 177/64
[2019-02-05] MEDS ORDERED: hydrALAZINE 20 MG/ML VIAL. IVP ONE (20:45)
[2019-02-05] MEDS ORDERED: hydrALAZINE 25 MG TABLET PO ONE (20:45)
[2019-02-05] MEDS ORDERED: hydrALAZINE 25 MG TABLET PO PRN (20:45)
[2019-02-05 23:00] VITALS: BP 140/62
[2019-02-06] MEDS ORDERED: ACETAMINOPHEN 325 MG TABLET. PO PRN
[2019-02-06 03:00] VITALS: BP 149/61
[2019-02-06 07:00] VITALS: BP 139/73
[2019-02-06] MEDS ORDERED: IV RINGERS,LACTATED 1000ML 1,000 ML IV SCH (07:00)
--- NOTE | 2019-02-06 10:04 | PDOC ---
PROGRESS NOTES Subjective Subjective feels better ,bp high last night Objective Objective Vital Signs Date Time Temp Pulse Resp B/P (MAP) Pulse Ox O2 Delivery O2 Flow Rate FiO2 02/06/19 08:13 Room Air 02/06/19 07:00 97.5 64 16 139/73 (95) 98 97.5 Intake and Output 02/06/19 07:00 Intake Total 860 ml Output Total 500 ml Balance 360 ml Intake Oral 860 ml Output Urine Total 500 ml # Voids 1 Physical Exam Abdomen: Normal bowel sounds, Soft Heart: Regular rate, Normal S1 Extremities: No clubbing General: Alert, Oriented X3 Lungs: Clear to auscultation MUSCULOSKELETAL: No deformity Neck: Supple Neuro: Normal speech Psych/Mental Status: Mental status NL Skin: No breakdown Assessment Assessment IMPRESSION: 1. Chest pain, atypical. 2. Acute gastroenteritis, possibly viral. 3. Gastroesophageal reflux disease, history of dilatation of the esophageal stricture. 4. Hypertension. 5. Osteoarthritis. PLAN: EGD today. d/c home after that. viral gastroenteritis troponin neg. ct scan abd -ve f/u amylase+lipase ,normal appreciate gi and cardiology consult Hypertension is not controlled, I will restart her losartan 50 mg daily. Antireflux measures extensively discussed with the patient. Start her on Prilosec 20 mg daily in a.m. I reviewed and reconciled home medications. Discussed with staff. Consult Dr. Shahid for cardiology evaluation and management, and Dr. Yoel Fay for GI evaluation and management. We will order serial EKG and enzymes. Monitor blood pressure. The patient is currently n.p.o., but hopefully later this afternoon, we can advance her diet and by evening put her on soft diet and if stable, consider discharging her tomorrow morning. For details, please refer the orders. Comment Review of Relevant I have reviewed the following items matty (where applicable) has been applied. Medications Current Medications Acetaminophen (Tylenol) 650 mg PRN Q6HRS PRN PO headache Last administered on at 00:17; Start 02/06/19 at 00:00 Hydralazine HCl (Apresoline Inj) 10 mg 1X ONCE IVP Last administered on at 20:56; Start 02/05/19 at 20:45; Stop 02/05/19 at 20:49; Status DC Hydralazine HCl (Apresoline) 25 mg 1X ONCE PO Last administered on 02/05/19at 20:55; Start 02/05/19 at 20:45; Stop 02/05/19 at 20:49; Status DC Hydralazine HCl (Apresoline) 25 mg PRN Q6HRS PRN PO HYPERTENSION; Start at 20:45 Ringer's Solution 1,000 ml @ 50 mls/hr Q20H IV ; Start 02/06/19 at 07:00; Stop 02/06/19 at 18:59 Vitals/I & O Vital Sign - Last 24 Hours 02/05/19 02/05/19 02/05/19 02/05/19 11:00 15:00 19:00 20:00 Temp 98.5 98.5 98.0 98.5 98.5 98.0 Pulse 56 55 60 Resp 18 18 20 B/P (MAP) 140/62 (88) 128/60 (82) 177/64 (101) Pulse Ox 98 99 100 O2 Delivery Room Air Room Air Room Air Room Air 02/05/19 02/05/19 02/05/19 02/06/19 20:55 20:56 23:00 03:00 Temp 98.4 97.9 98.4 97.9 Pulse 64 57 64 61 Resp 20 18 B/P (MAP) 166/71 166/71 140/62 (88) 149/61 (90) Pulse Ox 98 99 O2 Delivery Room Air 02/06/19 02/06/19 07:00 08:13 Temp 97.5 97.5 Pulse 64 Resp 16 B/P (MAP) 139/73 (95) Pulse Ox 98 O2 Delivery Room Air Room Air Intake and Output 02/05/19 02/05/19 02/06/19 15:00 23:00 07:00 Intake Total 740 ml 120 ml Output Total 500 ml Balance 240 ml 120 ml SHANNAN BOLDEN MD Feb 06, 2019 10:04
[2019-02-06] MEDS ORDERED: Pantoprazole PO (10:07)
[2019-02-06] MEDS ORDERED: HYDR-2868 PO (10:07)
[2019-02-06 11:00] VITALS: BP 147/67
[2019-02-06] MEDS ORDERED: PROPOFOL 20 ML IV ONE (11:23)
--- NOTE | 2019-02-06 11:38 | PDOC4 ---
PROCEDURE Procedure EGD/biopsies Indication: chest/abd pain, dyspepsia Meds: per anesthesia Findings; E--LA grade A at 38cm. G--Non-specific erythema, prepyloric D--normal to second portion. Efren. well. IMP: Mild reflux esophagitis Antral erythema, biopsied. REC: Consider PPI if symptoms warrant. Await biopsies. Outpatient colonoscopy. Thanks. RAJ MATTHEWS MD Feb 06, 2019 11:38
[2019-02-06] MEDS: PANTOPRAZOLE 40 MG TABLET.DR. PO SCH (12:21)
--- NOTE | 2019-02-06 12:51 | EKG ---
[facility] [address] [place] [address] Test Date: 2019-02-04 Test Time: 13:17:48 Pat Name: NASIR MERCADO Department: Room: 201 1 Gender: F Flight Operation Coordinator: BARRERA : 1950 Requested By: SHANNAN BOLDEN Order Number: [id number] Reading MD: Julio César De Oliveira MD Measurements Intervals [place] Rate: 54 P: 62 NM: 202 QRS: -16 QRSD: 76 T: 8 QT: 394 QTc: 375 Interpretive Statements SINUS RHYTHM 1ST DEGREE AVB Electronically Signed On 02-08-2019 15:51:25 CDT by Julio César De Oliveira MD
[2019-02-06 13:08] VITALS: BP 147/67
[2019-02-06] MEDS: LOSARTAN POTASSIUM 50 MG TABLET. PO SCH (13:08)
--- NOTE | 2019-02-06 14:28 | NUR ---
Discharge Note: ARISTIDES MERCADO [place] Discharge instructions and discharge home medications reviewed with Patient and a copy given. All questions have been answered and understanding verbalized.
--- NOTE | 2019-02-07 14:11 | PATHOLOGY ---
[facility] Accession Number: [id number] . 01 Material submitted: . RANDOM ANTRUM BIOPSY . 01 Clinical history: . Abdominal pain . 02 Diagnosis: Gastric antrum, random biopsy: - Chronic gastritis, mild. . (JPM:mm; 02/07/2019) [facility]/02/07/2019 . 02 Comment: Sections of the gastric biopsy reveal gastric antral/body transition mucosa showing congestion and mild chronic inflammation. A properly-controlled immunoperoxidase stain for Helicobacter is negative for Helicobacter organisms. There is no evidence of malignancy. . Special stain: Immunoperoxidase stain for Helicobacter . (JPM:mml; 02/07/2019) . 02 Electronically signed: . Jaden Barajas MD, Pathologist NPI- [id number] . 01 Gross description: . Received in formalin labeled "Roldan, Paty, random antrum BX," is a single segment of parks soft tissue measuring 0.6 cm in maximum dimension. The specimen is entirely submitted in cassette A1. (TSD; 02/06/2019) TOB/TOB . 02 Pathologist provided ICD-10: K29.50 . 02 CPT . 652255, K69621 Specimen Comment: A courtesy copy of this report has been sent to Specimen Comment: [phone], , . Specimen Comment: Report sent to ,DR BOLDEN / DR PATEL Specimen Comment: A duplicate report has been generated due to demographic updates. Performed at: [address], [place], [place] [id number] MD Ugo Rosas MD Phone: [phone] Performed at: 02 [facility] [address] [place], [place] [id number] MD Jaden Barajas MD Phone: [phone]
--- NOTE | 2019-02-13 21:28 | PDOC ---
Provider Note Provider Note Discharge summary dictated.#[id number]. SHANNAN BOLDEN MD Feb 13, 2019 21:28
--- NOTE | 2019-02-14 00:48 | DS ---
DATE OF DISCHARGE: 02/06/2019 REASON FOR ADMISSION TO THE HOSPITAL: Epigastric and chest pain. CONSULTATIONS: 1. Dr. De Oliveira. 2. Dr. Fay. PROCEDURES DONE: 1. CT of abdomen and pelvis. 2. EGD. HOSPITAL COURSE: The patient is a 68-year-old female. The patient having chest pain and nausea, vomiting, and in the epigastric area was admitted to the hospital. Cardiac enzymes and EKG was negative, seen by Cardiology, apparently the patient had a cardiac cath within last 2 years, no major blockages. The patient had a slightly elevated lipase 405, next day it came down to 220. Amylase was normal. Cholesterol was normal. Troponin was negative. Influenza was negative. CT scan of the abdomen and pelvis, DJD of the spine. The patient had an EGD, which shows gastric erythema, prepyloric and reflux esophagitis. Biopsy was negative for cancer, H. pylori was negative, shows gastritis. FINAL DIAGNOSES: 1. Epigastric pain secondary to gastritis. 2. Negative for myocardial infarction, had a cardiac catheterization last done 2 years ago, normal coronaries. 3. Hypertension. 4. Slightly elevated lipase, came down. I am not sure of the significance. The patient was discharged home. SHANNAN BOLDEN MD DR: DESIREE/aditya JOB#: [id number] / [id number]
== END 2019-02-06 14:05 | disposition home or self-care (01) | DRG 392 ==
LOC: ER 01:43 → 2 NORTH 05:46 → 2 SOUTH 02-05 09:05 → 2 NORTH 02-05 09:05 → 2 SOUTH 02-05 12:26 → 2 NORTH 02-05 12:26
PROVIDERS: ADMIT Internal Medicine; ATTEND Internal Medicine
PROC: 0DB68ZX Excision of Stomach, Via Natural or Artificial Opening Endoscopic, Diagnostic (ICD-10-PCS; principal; 2019-02-06 12:30)
DX: A08.4 Viral intestinal infection, unspecified (principal); I10 Essential (primary) hypertension; R07.89 Other chest pain; K21.0 Gastro-esophageal reflux disease with esophagitis; M19.90 Unspecified osteoarthritis, unspecified site; M48.00 Spinal stenosis, site unspecified; Z82.49 Family history of ischemic heart disease and other diseases of the circulatory system; Z90.710 Acquired absence of both cervix and uterus; Z87.01 Personal history of pneumonia (recurrent); Z98.51 Tubal ligation status; Z90.49 Acquired absence of other specified parts of digestive tract
CPT/HCPCS: 36415; 43239; 71045; 74177; 80048; 80053; 80061; 82150; 83690; 83735; 83880; 84484; 85025; 85610; 87804; 88305; 88342; 93005; 96374; J0360; J2270; J2405; J2704; J7030; J7120; Q0163; Q9967; 99285-25

== ENCOUNTER → 2019-02-26 | Day surgery (SDC) | payer OTHER ==
[~2019-02-26] MED LIST changes: +HYDR-2868 PO; +HYDROmorphone 2 MG/ML VIAL IV PRN; +IV RINGERS,LACTATED 1000ML 1,000 ML IV SCH; +LIDOCAINE 1% PF 2 ML VIAL. ID PRN; +LIDOCAINE 2% PF 5 ML VIAL. ONE; +LOSA-73 PO; +MORPHINE SULFATE 2 MG/ML VIAL. IV PRN; +ONDANSETRON PF 4 MG/2 ML VIAL. IV PRN; +PROCHLORPERAZINE 10 MG/2 ML VIAL. IV PRN; +PROPOFOL 40 ML IV ONE; +Pantoprazole PO; +fentaNYL PF VIAL 100 MCG/2 ML VIAL IV PRN
--- NOTE | 2019-02-26 12:44 | PDOC1 ---
History and Physical Date of Admission Date of Admission DATE: 02/26/19 TIME: 12:38 Source Source: Chart review, Patient History of Present Illness History of Present Illness 68 y/o female here for CRC screening. S/p prior colonic resection for diverticular disease with looser stools after. No bleeding, wt. loss. Recent EGD with mild reflux. S/p musa. No liver, pancreatic history. Past Medical History Cardiovascular: HTN, Other (palpitations) Pulmonary: Pneumonia Psych: Anxiety Musculoskeletal: Osteoarthritis Past Surgical History Past Surgical History: Cholecystectomy, Tubal Ligation, Hysterectomy, Colon Resection, Other (excise lipoma) Family History Family History: Hypertension Social History Smoke: No ALCOHOL: rare Drugs: None Current Medications Current Medications Current Medications Ondansetron HCl (Zofran) 4 mg PRN Q6HRS PRN IV NAUSEA/VOMITING; Start 02/26/19 at 07:00; Stop 02/27/19 at 06:59 Fentanyl Citrate (Fentanyl 2ml Vial) 25 mcg PRN Q5MIN PRN IV MILD PAIN; Start 02/26/19 at 07:00; Stop 02/27/19 at 06:59 Fentanyl Citrate (Fentanyl 2ml Vial) 50 mcg PRN Q5MIN PRN IV MODERATE TO SEVERE PAIN; Start 02/26/19 at 07:00; Stop 02/27/19 at 06:59 Morphine Sulfate (Morphine Sulfate) 1 mg PRN Q10MIN PRN IV SEVERE PAIN; Start 02/26/19 at 07:00; Stop 02/27/19 at 06:59 Ringer's Solution 1,000 ml @ 30 mls/hr Q24H IV ; Start 02/26/19 at 07:00; Stop 02/26/19 at 18:59 Lidocaine HCl (Xylocaine-Mpf 1% 2ml Vial) 2 ml PRN 1X PRN ID PRIOR TO IV START ; Start 02/26/19 at 07:00; Stop 02/27/19 at 06:59 Hydromorphone HCl (Dilaudid) 0.5 mg PRN Q10MIN PRN IV SEV PAIN, Second choice; Start 02/26/19 at 07:00; Stop 02/27/19 at 06:59 Prochlorperazine Edisylate (Compazine) 5 mg PACU PRN PRN IV NAUSEA, MRX1; Start 02/26/19 at 07:00; Stop 02/27/19 at 06:59 Active Scripts Active [Pantoprazole] 40 MG Tablet.dr 40 Mg PO DAILYAC 30 Days Hydralazine Hcl 25 Mg Tablet 25 Mg PO BID PRN 30 Days Reported Losartan Potassium 50 Mg Tablet 50 Mg PO DAILY Allergies Allergies: Coded Allergies: No Known Drug Allergies (Unverified , 02/06/19) ROS Review of System Otherwise negative. Physical Exam General: Alert, Oriented X3, Cooperative, No acute distress Lungs: Clear to auscultation, Normal air movement Heart: S1S2, RRR, no gallops, no murmurs Abdomen: Normal bowel sounds, Soft, No tenderness, No hepatosplenomegaly, No masses Rectal Exam: deferred (to procedure) Extremities: No cyanosis, No edema Skin: No significant lesion Neuro: Normal gait, Normal speech, Strength at 5/5 X4 ext, Normal tone, Sensation intact, Cranial nerves 3-12 NL, Reflexes 2+ Psych/Mental Status: Mental status NL, Mood NL Vitals Vitals See nursing records. VTE Prophylaxis Ordered VTE Prophylaxis Devices: No VTE Pharmacological Prophylaxi: No Assessment/Plan Assessment/Plan IMP: Screen for CRC. PLAN: colonoscopy RAJ MATTHEWS MD Feb 26, 2019 12:44
--- NOTE | 2019-02-26 13:40 | PDOC4 ---
PROCEDURE Procedure Colonoscopy with biopsy Indication: h/o polyps Meds: per anesthesia Findings: FOREIGN normal. --'Scope advanced to ileocolonic anastomosis ~ascending. Mucosa normal. No diverticula seen. 2mm sessile polyp in rectum, biopsied off. Small internal hemorrhoids on retroflex. Efren. well. IMP: Tiny polyp Hemorrhoids S/p right colectomy. REC: Await path. Resume meds, diet as prior to procedure. F/u in 2 weeks. RAJ MATTHEWS MD Feb 26, 2019 13:40
[2019-02-26 14:08] VITALS: BP 137/71
--- NOTE | 2019-02-27 15:06 | PATHOLOGY ---
[facility] Accession Number: [id number] . 01 Material submitted: . BIOPSY RECTAL POLYP . 01 Clinical history: . Hx colon polyps . 02 Diagnosis: Colorectal biopsy, rectal polyp: - Tissue insufficient for diagnosis. . (JPM:mm; 02/27/2019) [facility]/02/27/2019 . 02 Comment: There was no visible tissue identified within the specimen container. The contents of the container were filtered and entirely submitted in cassette A1. No colorectal tissue is identified. . (JPM:mml; 02/27/2019) . 02 Electronically signed: . Jaden Barajas MD, Pathologist NPI- [id number] . 01 Gross description: . Received as labeled "Roldan, Paty, BX rectal polyp," is an empty formalin container. The contents of the container are filtered and entirely submitted in cassette A1. Verified by SDY. (TSD; 02/26/2019) TOB/TOB . 02 Pathologist provided ICD-10: Z86.010 . 02 CPT . 536060 Specimen Comment: A courtesy copy of this report has been sent to Specimen Comment: [phone], . Specimen Comment: Report sent to / DR BOLDEN Performed at: 01 [facility] [address], [place], [place] [id number] MD Ugo Rosas MD Phone: [phone] Performed at: 02 [facility] [address] [place], [place] [id number] MD Jaden Barajas MD Phone: [phone]
== END | disposition home or self-care (01) ==
LOC: SURG 12:34
PROVIDERS: ATTEND Internal Medicine Gastroenterology
DX: Z12.11 Encounter for screening for malignant neoplasm of colon (principal); K62.1 Rectal polyp; K64.0 First degree hemorrhoids; Z86.010 Personal history of colon polyps; Z88.5 Allergy status to narcotic agent; I10 Essential (primary) hypertension; F41.9 Anxiety disorder, unspecified; Z87.01 Personal history of pneumonia (recurrent); M19.90 Unspecified osteoarthritis, unspecified site; Z90.49 Acquired absence of other specified parts of digestive tract; Z90.710 Acquired absence of both cervix and uterus; Z98.890 Other specified postprocedural states; Z98.51 Tubal ligation status; Z82.49 Family history of ischemic heart disease and other diseases of the circulatory system; Z72.89 Other problems related to lifestyle; Z79.899 Other long term (current) drug therapy; J45.909 Unspecified asthma, uncomplicated
CPT/HCPCS: 45380; 88300; J2001; J2704

== ENCOUNTER → 2019-03-01 | Outpatient (CLI) | payer OTHER ==
[2019-02-26 14:08] VITALS: BP 137/71
[~2019-03-01] MED LIST changes: -HYDROmorphone 2 MG/ML VIAL IV PRN; -IV RINGERS,LACTATED 1000ML 1,000 ML IV SCH; -LIDOCAINE 1% PF 2 ML VIAL. ID PRN; -LIDOCAINE 2% PF 5 ML VIAL. ONE; -MORPHINE SULFATE 2 MG/ML VIAL. IV PRN; -ONDANSETRON PF 4 MG/2 ML VIAL. IV PRN; -PROCHLORPERAZINE 10 MG/2 ML VIAL. IV PRN; -PROPOFOL 40 ML IV ONE; -fentaNYL PF VIAL 100 MCG/2 ML VIAL IV PRN
[2019-03-01 09:36] LABS: BASO # 0.1 x10^3/uL (0.0-0.2); BASO % 2 % (0-3); EOS # 0.4 x10^3/uL (0.0-0.7); EOS % 7 % (0-3); HEMOGLOBIN 12.7 g/dL (12.0-15.5); LYMPH # 2.5 x10^3/uL (1.0-4.8); LYMPH % 48 % (24-48); MEAN CORPUSCULAR HEMOGLOBIN 31 pg (25-35); MEAN CORPUSCULAR HGB CONC 33 g/dL (31-37); MEAN CORPUSCULAR VOLUME 94 fL (79-100); MONO # 0.6 x10^3/uL (0.0-1.1); MONO % 11 % (0-9); NEUT # 1.7 x10^3uL (1.8-7.7); NEUT % 32 % (31-73); PLATELET COUNT 270 x10^3/uL (140-400); RED BLOOD COUNT 4.04 x10^6/uL (3.50-5.40); RED CELL DISTRIBUTION WIDTH 13.1 % (11.5-14.5); WHITE BLOOD COUNT 5.3 x10^3/uL (4.0-11.0)
[2019-03-01 09:58] LABS: ALBUMIN 3.8 g/dL (3.4-5.0); ALBUMIN/GLOBULIN RATIO 1.1 (1.0-1.7); CALCIUM 9.1 mg/dL (8.5-10.1); CREATININE 0.8 mg/dL (0.6-1.0); GFR 86.8; POTASSIUM 3.6 mmol/L (3.5-5.1); TOTAL BILIRUBIN 0.3 mg/dL (0.2-1.0); TOTAL PROTEIN 7.3 g/dL (6.4-8.2)
[2019-03-01 10:09] LABS: CHOLESTEROL/HDL RATIO 3.1
[2019-03-01 11:03] LABS: BILIRUBIN,URINE NEGATIVE (NEG); CLARITY,URINE CLEAR; COLOR,URINE YELLOW; NITRITE,URINE NEGATIVE (NEG); PH,URINE 6.5; PROTEIN,URINE NEGATIVE (NEG-TRACE); UROBILINOGEN,URINE 0.2 mg/dL (0.2 mg/dL)
[2019-03-01 11:38] LABS: BACTERIA,URINE 0 /HPF (0-FEW); RBC,URINE 0 /HPF (0-2); WBC,URINE 0 /HPF (0-4)
[2019-03-02 00:09] LABS: HEMOGLOBIN A1C 6.1 % (4.8-5.6)
== END | disposition home or self-care (01) ==
LOC: LAB 08:19
PROVIDERS: ATTEND Internal Medicine
DX: Z00.00 Encounter for general adult medical examination without abnormal findings (principal); N39.0 Urinary tract infection, site not specified
CPT/HCPCS: 36415; 80053; 80061; 81001; 83036; 84443; 85025; 87086

== ENCOUNTER → 2020-04-07 | Outpatient (CLI) | payer OTHER ==
[2019-02-26 14:08] VITALS: BP 137/71
[~2020-04-07] MED LIST changes: +LISI1TAB23 PO; -LISI1TAB3 PO; +OMEP40CA45 PO; -OMEP40CA5 PO
[2020-04-07 10:30] LABS: BASO # 0.1 x10^3/uL (0.0-0.2); BASO % 1 % (0-3); EOS # 0.1 x10^3/uL (0.0-0.7); EOS % 2 % (0-3); HEMATOCRIT 41.6 % (36.0-47.0); HEMOGLOBIN 13.8 g/dL (12.0-15.5); LYMPH # 2.7 x10^3/uL (1.0-4.8); LYMPH % 48 % (24-48); MEAN CORPUSCULAR HEMOGLOBIN 32 pg (25-35); MEAN CORPUSCULAR HGB CONC 33 g/dL (31-37); MEAN CORPUSCULAR VOLUME 95 fL (79-100); MONO # 0.5 x10^3/uL (0.0-1.1); MONO % 9 % (0-9); NEUT # 2.2 x10^3/uL (1.8-7.7); NEUT % 40 % (31-73); PLATELET COUNT 300 x10^3/uL (140-400); RED BLOOD COUNT 4.37 x10^6/uL (3.50-5.40); RED CELL DISTRIBUTION WIDTH 12.9 % (11.5-14.5); WHITE BLOOD COUNT 5.6 x10^3/uL (4.0-11.0)
[2020-04-07 10:38] LABS: ALBUMIN 3.7 g/dL (3.4-5.0); CALCIUM 8.8 mg/dL (8.5-10.1); CREATININE 0.9 mg/dL (0.6-1.0); GFR 75.6; POTASSIUM 3.9 mmol/L (3.5-5.1); TOTAL BILIRUBIN 0.1 mg/dL (0.2-1.0); TOTAL PROTEIN 7.4 g/dL (6.4-8.2)
[2020-04-07 10:39] LABS: CHOLESTEROL/HDL RATIO 3.2
[2020-04-07 11:12] LABS: BILIRUBIN,URINE NEGATIVE (NEG); CLARITY,URINE CLEAR; COLOR,URINE YELLOW; NITRITE,URINE NEGATIVE (NEG); PH,URINE 5.5 (<5.0-8.0); PROTEIN,URINE NEGATIVE (NEG-TRACE); UROBILINOGEN,URINE 0.2 mg/dL (0.2 mg/dL)
[2020-04-07 11:46] LABS: BACTERIA,URINE 0 /HPF (0-FEW); RBC,URINE 0 /HPF (0-2); SQUAMOUS EPITHELIAL CELL,UR FEW /LPF; WBC,URINE 0 /HPF (0-4)
[2020-04-08 00:07] LABS: HEMOGLOBIN A1C 5.8 % (4.8-5.6)
== END | disposition home or self-care (01) ==
LOC: LAB 09:49
PROVIDERS: ATTEND Internal Medicine
DX: Z00.00 Encounter for general adult medical examination without abnormal findings (principal)
CPT/HCPCS: 36415; 80053; 80061; 81001; 83036; 84443; 85025

== ENCOUNTER 2020-07-15 08:17 | Emergency (ER) | payer OTHER ==
[~2020-07-15] VITALS: Ht 157.5 cm; Wt 72.7 kg
[~2020-07-15 08:17] MED LIST changes: -CEPH-264 PO; -PHEN-444 PO
[2020-07-15 09:45] VITALS: BP 172/81
[2020-07-15 09:56] LABS: BILIRUBIN,URINE NEGATIVE (NEG); CLARITY,URINE CLOUDY; NITRITE,URINE POSITIVE (NEG); PH,URINE 5.5 (<5.0-8.0); PROTEIN,URINE 30 mg/dL (NEG-TRACE)
[2020-07-15 10:22] LABS: BACTERIA,URINE MODERATE /HPF (0-FEW); HYALINE CASTS, URINE OCCASIONAL /HPF; SQUAMOUS EPITHELIAL CELL,UR FEW /LPF; WBC,URINE TNTC /HPF (0-4)
[2020-07-15 10:23] LABS: COLOR,URINE YELLOW
[2020-07-15] MEDS ORDERED: CEPH-264 PO (10:33)
[2020-07-15] MEDS ORDERED: PHEN-444 PO (10:33)
--- NOTE | 2020-07-15 10:33 | PHYS DOC ---
Past Medical History Past Medical History: Diverticulitis, Hypertension, Pneumonia, Other Additional Past Medical Histor: "irregular heart beat" Past Surgical History: Cholecystectomy, Colectomy, Hysterectomy, Tubal ligation, Other Additional Past Surgical Histo: fatty tumor removed Smoking Status: Never Smoker Alcohol Use: Rarely Drug Use: None General Adult EDM: Chief Complaint: PAIN ON URINATION HPI: HPI: 70-year-old female past medical history significant for hypertension and GERD, presents the ED with complaints of suprapubic pain, increased urinary frequency and dysuria for the past week. Also c/o mild left sided lumbar back pain. Has a history of UTIs and states it feels like this. No relief of symptoms with Azo and Aleve. No h/o nephrolithiasis. Review of systems: Denies associated fever, chills, cough, sore throat, dyspnea/orthopnea, confusion, chest pain, nausea, vomiting, diarrhea, flank pain, hematuria, radiculopathy, abdominal pain, hemoptysis, leg swelling, rash, abnormal vaginal discharge or bleeding, inability to urinate, neurologic deficits, myalgias, flu-like sxs or other concerning symptoms. Allergies: Allergies: Allergies Coded Allergies Type Severity Reaction Last Updated Verified hydrocodone Allergy Intermediate itch 02/26/19 Yes morphine Allergy Intermediate itch 02/26/19 Yes Physical Exam: PE: Constitutional: Well developed, well nourished, no acute distress, non-toxic appearance. [] HENT: Normocephalic, atraumatic, oropharynx moist, Eyes: EOMI, conjunctiva normal, no discharge. [] Neck: Normal range of motion, no tenderness, supple, no stridor. [] Cardiovascular:Heart rate regular rhythm, no murmur [] Lungs & Thorax: Bilateral breath sounds clear to auscultation [] Abdomen: Bowel sounds normal, soft, no tenderness, no masses, no pulsatile masses. [] Skin: Warm, dry, no erythema, no rash. [] Back: No tenderness, no CVA tenderness. [] Extremities: No tenderness, no cyanosis, no clubbing, ROM intact, no edema. [] Neurologic: Alert and oriented X 3, normal motor function, normal sensory function, no focal deficits noted. [] Psychologic: Affect normal, judgement normal, mood normal. [] Current Patient Data: Labs: Laboratory Tests Test 07/15/20 08:18 Urine Collection Type Unknown Urine Color Yellow Urine Clarity Cloudy Urine pH 5.5 (<5.0-8.0) Urine Specific [place] 1.015 (1.000-1.030) Urine Protein 30 mg/dL (NEG-TRACE) Urine Glucose (UA) Negative mg/dL (NEG) Urine Ketones (Stick) Negative mg/dL (NEG) Urine Blood Moderate (NEG) Urine Nitrite Positive (NEG) Urine Bilirubin Negative (NEG) Urine Urobilinogen Dipstick 1.0 mg/dL (0.2 mg/dL) Urine Leukocyte Esterase Large (NEG) Urine RBC 3-5 /HPF (0-2) Urine WBC Tntc /HPF (0-4) Urine Squamous Epithelial Cells Few /LPF Urine Bacteria Moderate /HPF (0-FEW) Urine Hyaline Casts Occasional /HPF Vital Signs: Vital Signs Date Time Temp Pulse Resp B/P (MAP) Pulse Ox O2 Delivery O2 Flow Rate FiO2 07/15/20 09:45 97.9 54 172/81 (111) 98 Room Air 97.9 EKG: EKG: [] Radiology/Procedures: Radiology/Procedures: [] Course & Med Decision Making: Course & Med Decision Making Pertinent Labs and Imaging studies reviewed. (See chart for details) Concern for UTI with possible hemorrhagic cystitis in the setting of uncontrolled, asymptomatic hypertension. Patient very well-appearing, has no CVA tenderness. Will DC home with Keflex and Azo and have patient repeat urinal ysis in 1 week. Strict ED return precautions were given for fever, dehydration with persistent nausea and vomiting or severe abdominal or back pain. Encouraged urgent outpatient follow-up with PMD. Life-threatening processes were considered but are low suspicion at this time, given history and physical exam. Pt was educated on all prescription medications and adverse effects. All patient's questions were answered and pt was stable at time of discharge. Differential includes aortic dissection, aortic aneurysm, acute coronary syndrome, surgical abdomen (appendicitis, cholecystitis, ischemic bowel, strangulated hernia, etc), bowel obstruction or volvulus, bladder outlet obstruction, gastrointestinal bleeding, inflammatory bowel disease, peptic ulcer disease, sepsis, diverticular disease, ureterolithiasis, nephrolithiasis, ovarian or testicular torsion, ectopic I spoken with the patient and her caregivers. I explained the patient's condition, diagnoses and treatment plan based on the information available to me at this time. I have answered the patient and her caregiver's questions and addressed any concerns. The patient and her caregivers have a good understanding of patient's diagnosis, condition and treatment plan as can be expected at this point. Vital signs have been stable. Patient's condition is stable and appropriate for discharge from the emergency department. Patient will pursue further outpatient evaluation with primary care physician or other designated or consulting physician as outlined in the discharge instructions. The patient and/or caregivers are agreeable to this plan of care and follow-up instructions have been explained in detail. The patient and/or caregivers have received these instructions in written form and have expressed an understanding of the discharge instructions. The patient and/or caregivers are aware that any significant change of condition or worsening of symptoms should prompt immediate return to this or the closest emergency department or call to 911. Brain Disclaimer: Brain Disclaimer: This electronic medical record was generated, in whole or in part, using a voice recognition dictation system. Departure Departure Impression: Primary Impression: UTI (urinary tract infection) Additional Impression: Uncontrolled hypertension Disposition: 01 HOME, SELF-CARE Condition: STABLE Referrals: SHANNAN BOLDEN MD (PCP) Patient Instructions: Dysuria, Urinary Frequency Scripts Phenazopyridine Hcl (PHENAZOPYRIDINE HCL) 200 Mg Tablet 1 TAB PO TID for urinary discomfort for 2 Days, #6 TAB 0 Refills after food Prov: HERBERT SMITH DO 07/15/20 Cephalexin (KEFLEX) 500 Mg Capsule 2 CAP PO Q12HR for 7 Days, #28 CAP Prov: HERBERT SMITH DO 07/15/20 Justicifation of Admission Dx: Justifications for Admission: Justification of Admission Dx: N/A HERBERT SMITH DO Jul 15, 2020 10:33
== END 2020-07-15 10:40 | disposition home or self-care (01) ==
LOC: ER 08:17
DX: N39.0 Urinary tract infection, site not specified (principal); I10 Essential (primary) hypertension; Z90.710 Acquired absence of both cervix and uterus; Z90.49 Acquired absence of other specified parts of digestive tract; Z98.51 Tubal ligation status; Z88.5 Allergy status to narcotic agent
CPT/HCPCS: 81001; 87086; 99283

== ENCOUNTER → 2020-07-15 | Outpatient (CLI) | payer OTHER ==
[2019-02-26 14:08] VITALS: BP 137/71
[~2020-07-15] MED LIST changes: +CEPH-264 PO; +PHEN-444 PO
--- NOTE | 2020-07-15 15:32 | RAD ---
DATE: 07/15/2020 7:59 AM EXAM: MAMMO SARA SCREENING BILATERAL HISTORY: Screening COMPARISON: 01/30/2019, 08/11/2017 Bilateral CC and MLO views of the breasts were performed. Bilateral breast tomosynthesis was performed in CC and MLO projections. This study was interpreted with the benefit of Computerized Aided Detection (CAD). FINDINGS: Breast Density: SCATTERED The breast parenchyma shows scattered fibroglandular densities. Breast parenchyma level B No suspicious masses, microcalcifications or architectural distortion is present to suggest malignancy in either breast. The visualized axillae are unremarkable. IMPRESSION: No mammographic evidence of malignancy. BI-RADS CATEGORY: 1 NEGATIVE RECOMMENDED FOLLOW-UP: 12M 12 MONTH FOLLOW-UP Annual screening mammography is recommended, unless clinically indicated sooner based on symptoms or change in physical exam. PQRS compliance statement: Patient information was entered into a reminder system with a target due date for the next mammogram. Mammography is a sensitive method for finding small breast cancers, but it does not detect them all and is not a substitute for careful clinical examination. A negative mammogram does not negate a clinically suspicious finding and should not result in delay in biopsying a clinically suspicious abnormality. "Our facility is accredited by the [employer] Mammography Program."
== END | disposition home or self-care (01) ==
LOC: MAMMO 07:53
PROVIDERS: ATTEND Internal Medicine
DX: Z12.31 Encounter for screening mammogram for malignant neoplasm of breast (principal)
CPT/HCPCS: 77063; 77067

== ENCOUNTER → 2020-09-10 | Outpatient (CLI) | payer OTHER ==
[~2020-09-10] MED LIST changes: +CEPH-264 PO; +PHEN-444 PO
--- NOTE | 2020-09-10 11:37 | RAD ---
HIP BILATERAL WITH PELVIS 09/10/2020 12:00 AM INDICATION: Degenerative osteoarthritis COMPARISON: CT abdomen/pelvis 02/04/2019 TECHNIQUE: AP view the pelvis and 2 dedicated views of each hip are provided. FINDINGS/ IMPRESSION: There is no acute fracture or dislocation. Joint spaces are maintained. Bone mineralization is within normal limits. Regional soft tissues are within normal limits. There is no soft tissue gas or osseous erosion. No radiopaque foreign body. Phleboliths are identified within the pelvis. Sacroiliac joints are well aligned. Superior and inferior pubic rami are intact. Electronically signed by: Marybeth Irizarry MD (09/10/2020 11:34 AM) [id number]
== END ==
LOC: RAD 07:19
PROVIDERS: ATTEND Internal Medicine
DX: M16.0 Bilateral primary osteoarthritis of hip (principal); I87.8 Other specified disorders of veins
CPT/HCPCS: 73521

== ENCOUNTER → 2021-04-01 | Outpatient (CLI) | payer OTHER ==
[~2021-04-01] MED LIST changes: -LISI-338 PO; +LISI-517 PO
--- NOTE | 2021-04-01 16:22 | RAD ---
AP view of the pelvis and two-view study of the left hip Clinical indications: Trochanteric bursitis of the left hip. FINDINGS: Hip joints are symmetric. No significant arthritic change of either hip joint is seen. No a cute fracture dislocation or lytic process is evident. There is mild primary degenerative osteoarthri tis of the symphysis pubis. No diastases of the symphysis pubis or either SI joint is seen. No erosiv e arthropathy of these joints is seen. No ankylosis of either SI joint is seen. No bony spur of the g reater trochanter of the left hip is seen. IMPRESSION: No acute osseous abnormality. Electronically signed by: Wesly Morales MD (04/01/2021 4:20 PM) [id number]
== END ==
LOC: RAD 14:40
PROVIDERS: ATTEND Internal Medicine
DX: M70.62 Trochanteric bursitis, left hip (principal); Y93.89 Activity, other specified
CPT/HCPCS: 73502

== ENCOUNTER → 2021-04-03 | Outpatient (CLI) | payer OTHER ==
[2021-04-03 07:44] LABS: BASO # 0.1 x10^3/uL (0.0-0.2); BASO % 2 % (0-3); EOS # 0.2 x10^3/uL (0.0-0.7); EOS % 3 % (0-3); HEMATOCRIT 37.8 % (36.0-47.0); HEMOGLOBIN 12.8 g/dL (12.0-15.5); LYMPH # 3.3 x10^3/uL (1.0-4.8); LYMPH % 50 % (24-48); MEAN CORPUSCULAR HEMOGLOBIN 32 pg (25-35); MEAN CORPUSCULAR HGB CONC 34 g/dL (31-37); MEAN CORPUSCULAR VOLUME 95 fL (79-100); MONO # 0.6 x10^3/uL (0.0-1.1); MONO % 9 % (0-9); NEUT # 2.3 x10^3/uL (1.8-7.7); NEUT % 36 % (31-73); PLATELET COUNT 273 x10^3/uL (140-400); RED BLOOD COUNT 3.99 x10^6/uL (3.50-5.40); RED CELL DISTRIBUTION WIDTH 12.9 % (11.5-14.5); WHITE BLOOD COUNT 6.5 x10^3/uL (4.0-11.0)
[2021-04-03 07:46] LABS: BILIRUBIN,URINE NEGATIVE (NEG); CLARITY,URINE CLEAR; COLOR,URINE YELLOW; NITRITE,URINE NEGATIVE (NEG); PH,URINE 5.5 (<5.0-8.0); PROTEIN,URINE NEGATIVE (NEG-TRACE); UROBILINOGEN,URINE 0.2 mg/dL (0.2 mg/dL)
[2021-04-03 07:58] LABS: ALBUMIN/GLOBULIN RATIO 1.2 (1.0-1.7); CALCIUM 9.1 mg/dL (8.5-10.1); CREATININE 0.8 mg/dL (0.6-1.0); GFR 86.3; POTASSIUM 3.8 mmol/L (3.5-5.1); TOTAL BILIRUBIN 0.3 mg/dL (0.2-1.0); TOTAL PROTEIN 7.3 g/dL (6.4-8.2)
[2021-04-03 07:58] LABS: BACTERIA,URINE 0 /HPF (0-FEW); RBC,URINE 0 /HPF (0-2); WBC,URINE OCC /HPF (0-4)
[2021-04-04 01:13] LABS: HEMOGLOBIN A1C 5.8 % (4.8-5.6)
== END ==
LOC: LAB 07:25
PROVIDERS: ATTEND Internal Medicine
DX: Z00.00 Encounter for general adult medical examination without abnormal findings (principal); E55.9 Vitamin D deficiency, unspecified
CPT/HCPCS: 36415; 80053; 80061; 81001; 82306; 83036; 84443; 85025

== ENCOUNTER 2021-04-19 00:17 | Emergency (ER) | payer OTHER ==
[~2021-04-19] VITALS: Ht 157.5 cm; Wt 75.0 kg
[2021-04-19 01:04] LABS: BASO # 0.1 x10^3/uL (0.0-0.2); BASO % 1 % (0-3); EOS # 0.1 x10^3/uL (0.0-0.7); EOS % 1 % (0-3); HEMATOCRIT 39.9 % (36.0-47.0); HEMOGLOBIN 13.6 g/dL (12.0-15.5); LYMPH # 3.6 x10^3/uL (1.0-4.8); LYMPH % 40 % (24-48); MEAN CORPUSCULAR HEMOGLOBIN 32 pg (25-35); MEAN CORPUSCULAR HGB CONC 34 g/dL (31-37); MEAN CORPUSCULAR VOLUME 94 fL (79-100); MONO # 0.7 x10^3/uL (0.0-1.1); MONO % 8 % (0-9); NEUT # 4.3 x10^3/uL (1.8-7.7); NEUT % 49 % (31-73); PLATELET COUNT 281 x10^3/uL (140-400); RED BLOOD COUNT 4.24 x10^6/uL (3.50-5.40); RED CELL DISTRIBUTION WIDTH 12.9 % (11.5-14.5); WHITE BLOOD COUNT 8.8 x10^3/uL (4.0-11.0)
[2021-04-19 01:22] LABS: CALCIUM 9.7 mg/dL (8.5-10.1); CREATININE 0.7 mg/dL (0.6-1.0); GFR 100.7; POTASSIUM 4.6 mmol/L (3.5-5.1)
--- NOTE | 2021-04-19 01:27 | RAD ---
EXAM: AP View of the chest DATE: 04/19/2021 1:00 AM INDICATION: Reason: dizzy / Spl. Instructions: / History: COMPARISON: 02/04/2019 10/31/2017 FINDINGS: The heart is not enlarged. Mediastinal and hilar contours are normal. No focal parenchymal airspace opacity. No pleural effusion or pneumothorax. IMPRESSION: 1. No radiographic evidence for acute cardiopulmonary process. Electronically signed by: Bill Palma MD (04/19/2021 1:25 AM) ALONSO
[2021-04-19 01:28] LABS: ALBUMIN/GLOBULIN RATIO 1.3 (1.0-1.7); MAGNESIUM 2.3 mg/dL (1.8-2.4); TOTAL BILIRUBIN 0.3 mg/dL (0.2-1.0)
[2021-04-19] MEDS: hydrALAZINE 20 MG/ML VIAL. IVP ONE (01:48)
--- NOTE | 2021-04-19 02:15 | RAD ---
EXAM: CT Head without IV contrast CLINICAL HISTORY: Reason: headache, dizziness, HTN / Spl. Instructions: / History: COMPARISON: None. TECHNIQUE: Routine CT of the head without contrast. PQRS compliance statement - One or more of the following individualized dose reduction techniques wer e utilized for this study: 1. Automated exposure control 2. Adjustment of the mA and/or kV according to patient size 3. Use of iterative reconstruction technique FINDINGS: There is no evidence of hemorrhage, mass or extra-axial fluid collection. Be-white differentiation is maintained with no evidence of edema. There is no mass effect or shift of the intracranial structures. The ventricles, basilar cisterns and cortical sulci are normal in size and configuration for the trino ents stated age. The cerebellum and brainstem are unremarkable. The calvarium demonstrates no evidence of fracture or focal lesion. There is normal aeration of the visualized paranasal sinuses and mastoid air cells. The visualized portions of the orbits are normal. Atherosclerotic calcifications of the intracranial internal carotid and vertebral arteries is seen. IMPRESSION: No evidence for acute intracranial process. Electronically signed by: Bill Palma MD (04/19/2021 2:12 AM) ALONSO
--- NOTE | 2021-04-19 03:01 | EKG ---
[address] [place] [address] Test Date: 2021-04-19 Test Time: 00:36:52 Pat Name: NASIR MERCADO Department: Room: Gender: F [employer]ensing [employer]st: : [id number] Requested By: BOLIVAR KINGSLEY Order Number: [id number] Reading MD: Reji Shahid Measurements Intervals [place] Rate: 46 P: 65 UT: 198 QRS: -20 QRSD: 78 T: 8 QT: 408 QTc: 358 Interpretive Statements SINUS BRADYCARDIA LEFTWARD AXIS CONSIDER LEFT VENTRICULAR HYPERTROPHY Electronically Signed On 04-21-2021 15:27:41 CDT by Reji Shahid
[2021-04-19] MEDS: IV NORMAL SALINE 1000ML BAG 1,000 ML IV ONE (03:12)
[2021-04-19] MEDS: KETOROLAC 30 MG/ML VIAL. IVP ONE (03:12)
--- NOTE | 2021-04-19 04:25 | ED.ADGEN ---
Past Medical History Past Medical History: Diverticulitis, Hypertension, Pneumonia, Other Additional Past Medical Histor: "irregular heart beat" Past Surgical History: Cholecystectomy, Colectomy, Hysterectomy, Tubal ligati on, Other Additional Past Surgical Histo: fatty tumor removed Smoking Status: Never Smoker Alcohol Use: Rarely Drug Use: None General Adult EDM: Chief Complaint: MULTIPLE COMPLAINTS HPI: HPI: Patient is a 70-year-old female who presents to the emergency room with vague complaints. Patient states that she has felt like maybe she is going to pass out and intermittently dizzy all day. She states that she has some mild nausea. She denies any kind of pain. She denies any recent changes. She has not had any nausea, vomiting, chest pain, shortness of breath, abdominal pain, diarrhea, constipation, headache, chills, sweats, fever. Dizziness is worse when she is up moving around. She denies any weakness, numbness, blurred vision. Review of Systems: Review of Systems: Complete ROS is negative unless otherwise documented in HPI Current Medications: Current Medications Medications (Trade) Dose Ordered Sig/Marnie Start Time Stop Time Status Last Admin Dose Admin Hydralazine HCl (Apresoline Inj) 10 mg 1X ONCE 04/19/21 01:45 04/19/21 01:46 DC 04/19/21 01:48 10 MG Ketorolac Tromethamine (Toradol 30mg Vial) 30 mg 1X ONCE 04/19/21 03:00 04/19/21 03:01 DC 04/19/21 03:12 30 MG Sodium Chloride 1,000 ml @ 1,000 mls/hr 1X ONCE 04/19/21 03:00 04/19/21 03:59 DC 04/19/21 03:12 1,000 MLS/HR Allergies: Allergies: Allergies Coded Allergies Type Severity Reaction Last Updated Verified hydrocodone Allergy Intermediate itch 02/26/19 Yes morphine Allergy Intermediate itch 02/26/19 Yes Physical Exam: PE: General: Awake, alert, NAD. Well Nourished, well hydrated. Cooperative HEENT: Atraumatic, EOMI, PERRL, airway patent, moist oral mucosa Neck: Supple, trachea midline Respiratory: CTA bilaterally, normal effort, no wheezing/crackles CV: RRR, no murmur, cap refill <2 GI: Soft, nondistended, nontender, no masses MSK: No obvious deformities Skin: Warm, dry, intact Neuro: A&O x3, speech NL, 5/5 strength in BUE/BLE distally and proximally, CN 2- 12 intact, cerebellar testing normal Psych: Normal affect, normal mood, not suicidal or homicidal Current Patient Data: Labs: Laboratory Tests Test 04/19/21 00:55 04/19/21 04:15 White Blood Count 8.8 x10^3/uL (4.0-11.0) Red Blood Count 4.24 x10^6/uL (3.50-5.40) Hemoglobin 13.6 g/dL (12.0-15.5) Hematocrit 39.9 % (36.0-47.0) Mean Corpuscular Volume 94 fL (79-100) Mean Corpuscular Hemoglobin 32 pg (25-35) Mean Corpuscular Hemoglobin Concent 34 g/dL (31-37) Red Cell Distribution Width 12.9 % (11.5-14.5) Platelet Count 281 x10^3/uL (140-400) Neutrophils (%) (Auto) 49 % (31-73) Lymphocytes (%) (Auto) 40 % (24-48) Monocytes (%) (Auto) 8 % (0-9) Eosinophils (%) (Auto) 1 % (0-3) Basophils (%) (Auto) 1 % (0-3) Neutrophils # (Auto) 4.3 x10^3/uL (1.8-7.7) Lymphocytes # (Auto) 3.6 x10^3/uL (1.0-4.8) Monocytes # (Auto) 0.7 x10^3/uL (0.0-1.1) Eosinophils # (Auto) 0.1 x10^3/uL (0.0-0.7) Basophils # (Auto) 0.1 x10^3/uL (0.0-0.2) Sodium Level 143 mmol/L (136-145) Potassium Level 4.6 mmol/L (3.5-5.1) Chloride Level 106 mmol/L (98-107) Carbon Dioxide Level 28 mmol/L (21-32) Anion Gap 9 (6-14) Blood Urea Nitrogen 18 mg/dL (7-20) Creatinine 0.7 mg/dL (0.6-1.0) Estimated GFR (Cockcroft-Gault) 100.7 BUN/Creatinine Ratio 26 (6-20) H Glucose Level 113 mg/dL (70-99) H Calcium Level 9.7 mg/dL (8.5-10.1) Magnesium Level 2.3 mg/dL (1.8-2.4) Total Bilirubin 0.3 mg/dL (0.2-1.0) Aspartate Amino Transferase (AST) 22 U/L (15-37) Alanine Aminotransferase (ALT) 35 U/L (14-59) Alkaline Phosphatase 90 U/L (46-116) Troponin I Quantitative < 0.017 ng/mL (0.000-0.055) FE-Jrf-U-Type Natriuretic Peptide 52 pg/mL (0-124) Total Protein 7.0 g/dL (6.4-8.2) Albumin 4.0 g/dL (3.4-5.0) Albumin/Globulin Ratio 1.3 (1.0-1.7) Urine Collection Type Unknown Urine Color Yellow Urine Clarity Clear Urine pH 7.5 (<5.0-8.0) Urine Specific [place] 1.010 (1.000-1.030) Urine Protein Negative mg/dL (NEG-TRACE) Urine Glucose (UA) Negative mg/dL (NEG) Urine Ketones (Stick) Negative mg/dL (NEG) Urine Blood Trace (NEG) Urine Nitrite Negative (NEG) Urine Bilirubin Negative (NEG) Urine Urobilinogen Dipstick 0.2 mg/dL (0.2 mg/dL) Urine Leukocyte Esterase Large (NEG) Urine RBC 0 /HPF (0-2) Urine WBC 11-20 /HPF (0-4) Urine Squamous Epithelial Cells Mod /LPF Urine Bacteria 0 /HPF (0-FEW) Laboratory Tests 04/19/21 00:55 Laboratory Tests 04/19/21 00:55 Vital Signs: Vital Signs Date Time Temp Pulse Resp B/P (MAP) Pulse Ox O2 Delivery O2 Flow Rate FiO2 04/19/21 01:48 46 221/100 04/19/21 00:26 97.8 22 100 Room Air 97.8 EKG: EKG: [] Heart Score: C/O Chest Pain: N/A Risk Factors: Risk Factors: DM, Current or recent (<one month) smoker, HTN, HLP, family history of CAD, obesity. Risk Scores: Score 0 - 3: 2.5% MACE over next 6 weeks - Discharge Home Score 4 - 6: 20.3% MACE over next 6 weeks - Admit for Clinical Observation Score 7 - 10: 72.7% MACE over next 6 weeks - Early Invasive Strategies Radiology/Procedures: Radiology/Procedures: [] Course & Med Decision Making: Course & Med Decision Making Pertinent Labs and Imaging studies reviewed. (See chart for details) Patient is a 70-year-old female with a history of hypertension who presents to the emergency room complaining of generalized weakness and dizziness. History and exam are significant for mild bradycardia and hypertension. Given age and history differential for generalized weakness includes dehydration, electrolyte abnormalities, anemia, infection, arrhythmia, medication side effect, hypertension, bradycardia. At this time CBC, BMP, EKG, UA, troponin, chest x- ray were ordered to evaluate for causes of weakness. Lab work shows some dehydration. Patient was given hydralazine for hypertension. She was given fluids for dehydration. UA does show white blood cells. We will place her on Keflex. Patient is feeling significantly better. Blood pressure, heart rate have improved with a single dose of hydralazine. Patient's test results and vitals while in the ED were fully reviewed and discussed with the patient. Patient is stable and at this time does not need admission to the hospital. We have discussed strict return precautions and the importance of following up with their Primary Care Physician. Patient stated understanding and was given an opportunity to ask any questions. Patient is in agreement with plan. 0510: Lab called about pending urine. Per mobile lab technician, she has just arrived and it had not yet been started. Brain Disclaimer: Brain Disclaimer: This electronic medical record was generated, in whole or in part, using a voice recognition dictation system. Departure Departure Impression: Primary Impression: Dizziness Additional Impressions: UTI (urinary tract infection) Hypertension Disposition: HOME / SELF CARE / HOMELESS Condition: STABLE Referrals: SHANNAN BOLDEN MD (PCP) Patient Instructions: Bradycardia, Dizziness, Urinary Tract Infection Scripts Cephalexin (CEPHALEXIN) 500 Mg Capsule 1 CAP PO BID, #14 CAP Prov: BOLIVAR KINGSLEY MD 04/19/21 Problem Qualifiers BOLIVAR KINGSLEY MD April 19, 2021 04:25
[2021-04-19 04:31] LABS: BILIRUBIN,URINE NEGATIVE (NEG); CLARITY,URINE CLEAR; COLOR,URINE YELLOW; NITRITE,URINE NEGATIVE (NEG); PH,URINE 7.5 (<5.0-8.0); PROTEIN,URINE NEGATIVE (NEG-TRACE); UROBILINOGEN,URINE 0.2 mg/dL (0.2 mg/dL)
[2021-04-19 05:15] LABS: BACTERIA,URINE 0 /HPF (0-FEW); RBC,URINE 0 /HPF (0-2)
[2021-04-19] MEDS ORDERED: CEPH500C PO (05:25)
[2021-04-19 05:30] VITALS: BP 150/64
== END 2021-04-19 05:35 | disposition home or self-care (01) ==
LOC: ER 00:17
DX: N39.0 Urinary tract infection, site not specified (principal); I10 Essential (primary) hypertension; R42 Dizziness and giddiness; Z90.49 Acquired absence of other specified parts of digestive tract; Z90.710 Acquired absence of both cervix and uterus; Z98.51 Tubal ligation status; Z88.5 Allergy status to narcotic agent
CPT/HCPCS: 36415; 70450; 71045; 80053; 81001; 83735; 83880; 84484; 85025; 93005; 96361; 96374; 96375; 99285; J0360; J1885; J7030

== ENCOUNTER 2021-11-18 07:16 | Emergency (ER) | payer OTHER ==
[~2021-11-18] VITALS: Ht 157.5 cm; Wt 74.1 kg
[~2021-11-18 07:16] MED LIST changes: +CEPH500C PO; -LISI-517 PO; -LISI1TAB23 PO; +LISI1TAB35 PO; +LISI5TAB15 PO; -OMEP40CA45 PO; +OMEP40CA7 PO
--- NOTE | 2021-11-18 07:41 | PHYS DOC ---
Past Medical History Past Medical History: Diverticulitis, Hypertension, Pneumonia, Other Additional Past Medical Histor: "irregular heart beat" Past Surgical History: Cholecystectomy, Colectomy, Hysterectomy, Tubal ligation, Other Additional Past Surgical Histo: fatty tumor removed Smoking Status: Never Smoker Alcohol Use: Rarely Drug Use: None General Adult EDM: Chief Complaint: PELVIC PAIN HPI: HPI: Patient is a 71-year-old female presenting for suprapubic discomfort and subsequently bilateral lower back pain. Onset was approximately 2 months ago and has waxed and waned ever since. Nothing known makes better or worse. Denies any nav pain, just generalized discomfort in pelvic and lower back regions. Timing of symptoms has waxed and waned since onset. She has not seen her primary care physician for this. Reports that time she has had dysuria with increased urinary frequency past 24 hours, has history of constipation but states she has been at her baseline with last bowel movement yesterday which was unremarkable. Does disclose that she had a hysterectomy more than 20 years ago for fibroids, ovaries remain, and has had several abdominal surgeries including a hemicolectomy in the past but states everything has been at baseline. She is concern for potential urinary tract infection versus chronic degenerative disc disease of the back Review of Systems: Review of Systems: Fourteen body systems of review of systems have been reviewed. See HPI for pertinent positives and negative responses, other downs all other systems are negative, non-pertinent or non-contributory Heart Score: C/O Chest Pain: No Risk Factors: Risk Factors: DM, Current or recent (<one month) smoker, HTN, HLP, family history of CAD, obesity. Risk Scores: Score 0 - 3: 2.5% MACE over next 6 weeks - Discharge Home Score 4 - 6: 20.3% MACE over next 6 weeks - Admit for Clinical Observation Score 7 - 10: 72.7% MACE over next 6 weeks - Early Invasive Strategies Allergies: Allergies: Allergies Coded Allergies Type Severity Reaction Last Updated Verified hydrocodone Allergy Intermediate itch 11/18/21 Yes morphine Allergy Intermediate itch 11/18/21 Yes Physical Exam: PE: Constitutional: Well developed, well nourished, no acute distress, non-toxic appearance. HENT: Normocephalic, atraumatic, bilateral external ears normal, oropharynx moist, no oral exudates, nose normal. Eyes: PERRLA, EOMI, conjunctiva normal, no discharge. Neck: Normal range of motion, no tenderness, supple, no stridor. Cardiovascular: Heart rate regular, sinus rhythm, no murmurs rubs or gallops Lungs & Thorax: Bilateral breath sounds clear to auscultation Abdomen: Bowel sounds normal, soft, suprapubic tenderness with palpation without guarding or rebound, no masses, no pulsatile masses. Nonsurgical abdomen, no peritoneal signs Skin: Warm, dry, no erythema, no rash. Back: No midline tenderness or step-off, no CVA tenderness. Patient has pain to superior portions of bilateral gluteal muscles without any concerning red flag signs Extremities: No tenderness, no cyanosis, no clubbing, ROM intact, no edema. Neurologic: Alert and oriented X 3, no saddle anesthesia, rectal tone intact, normal motor & sensory function, no focal deficits noted. Psychologic: Affect normal, judgement normal, mood normal. Current Patient Data: Labs: Laboratory Tests Test 11/18/21 07:45 Urine Collection Type Unknown Urine Color Yellow Urine Clarity Clear Urine pH 5.5 Urine Specific [place] 1.025 Urine Protein Negative mg/dL Urine Glucose (UA) Negative mg/dL Urine Ketones (Stick) Negative mg/dL Urine Blood Negative Urine Nitrite Negative Urine Bilirubin Negative Urine Urobilinogen Dipstick 0.2 mg/dL Urine Leukocyte Esterase Small Urine RBC 0 /HPF Urine WBC 1-4 /HPF Urine Squamous Epithelial Cells Mod /LPF Urine Bacteria 0 /HPF Urine Mucus Slight /LPF Vital Signs: Vital Signs Date Time Temp Pulse Resp B/P (MAP) Pulse Ox O2 Delivery O2 Flow Rate FiO2 11/18/21 07:27 98.1 69 18 183/74 (110) 100 Room Air 98.1 Vital Signs Date Time Temp Pulse Resp B/P (MAP) Pulse Ox O2 Delivery O2 Flow Rate FiO2 11/18/21 07:27 98.1 69 18 183/74 (110) 100 Room Air 98.1 EKG: EKG: [] Radiology/Procedures: Radiology/Procedures: [] Course & Med Decision Making: Course & Med Decision Making Airway patent, breathing unlabored, vitals obtained concerning for slight hypertension only HPI physical exam and urinalysis obtained concerning for small leukoesterase. In setting of UTI symptoms, joint decision made to treat. Patient has no other concerning comorbid risk factors, will treat as uncomplicated UTI, patient request Keflex which she is taken in the past with good relief I did disclose this might be an acute presentation more concerning pathology. I disclosed my concern that vague symptoms have been ongoing for past 2 months. She has close outpatient follow-up previously scheduled with primary care provider November 25 which I advised her to keep for continued work-up Ultimately, joint decision made to defer any further diagnostic work-up in ER setting, will treat uncomplicated UTI with Keflex and follow-up with primary care physician for further work-up as indicated. Strict return precautions discussed and understood by patient, all questions and concerns addressed prior to ER departure [place] Disclaimer: Brain Disclaimer: This electronic medical record was generated, in whole or in part, using a voice recognition dictation system. Departure Departure Impression: Primary Impression: UTI (urinary tract infection) Disposition: HOME / SELF CARE / HOMELESS Condition: STABLE Referrals: SHANNAN BOLDEN MD (PCP) Additional Instructions: You were seen for a urinary tract infection. Please continue to take the antibiotics as prescribed. You should return to the ED if you develop worsening pain, fever, flank pain, or any other new or concerning symptoms. Follow up with primary care for further management if ongoing symptoms. SID MCKNIGHT DO Nov 18, 2021 07:41
[2021-11-18 07:56] LABS: BILIRUBIN,URINE NEGATIVE (NEG); CLARITY,URINE CLEAR; COLOR,URINE YELLOW; NITRITE,URINE NEGATIVE (NEG); PH,URINE 5.5 (<5.0-8.0); PROTEIN,URINE NEGATIVE (NEG-TRACE); UROBILINOGEN,URINE 0.2 mg/dL (0.2 mg/dL)
[2021-11-18 08:18] LABS: BACTERIA,URINE 0 /HPF (0-FEW); RBC,URINE 0 /HPF (0-2)
[2021-11-18] MEDS ORDERED: CEPH500T PO (08:34)
[2021-11-18 08:45] VITALS: BP 164/76
[2021-11-18] MEDS ORDERED: CEPHALEXIN 250 MG CAPSULE. PO SCH (09:00)
== END 2021-11-18 08:45 | disposition home or self-care (01) ==
LOC: ER 07:16
DX: N39.0 Urinary tract infection, site not specified (principal); I10 Essential (primary) hypertension; Z90.49 Acquired absence of other specified parts of digestive tract; Z90.710 Acquired absence of both cervix and uterus; Z98.51 Tubal ligation status; Z88.5 Allergy status to narcotic agent
CPT/HCPCS: 81001; 87086; 99283

== ENCOUNTER → 2022-02-23 | Outpatient (CLI) | payer OTHER ==
[~2022-02-23] MED LIST changes: +CEPH500T PO
--- NOTE | 2022-02-23 14:46 | RAD ---
Bilateral digital screening 2-D and 3-D (digital breast tomosynthesis) mammogram: Reason for examination: Routine screening. Comparison: Mammograms from 07/15/2020 and 01/30/2019. Interpretation was made with the benefit of CAD. FINDINGS: Breast density: Category B. There are scattered areas of fibroglandular density. No suspicious breast mass, malignant appearing calcifications, or architectural distortion is seen. IMPRESSION: No evidence of malignancy. Assessment: BI-RADS 1. Negative. Recommendation: Routine screening mammograms. The patient will receive a letter with the results in the mail. Patient information will be entered i nto the mammography reminder system with a target recall date for the next mammogram. A reminder carmine er will be generated. Electronically signed by: Raquel Rangel MD (02/23/2022 2:43 PM) [id number]
== END ==
LOC: MAMMO 08:09
PROVIDERS: ATTEND Internal Medicine
DX: Z12.31 Encounter for screening mammogram for malignant neoplasm of breast (principal)
CPT/HCPCS: 77063; 77067